=== PATIENT | female | born 1970 | race Caucasian/White ===

== ENCOUNTER 2020-09-08 13:02 | Outpatient (REF) | payer MEDICAID, SELFPAY | END 2020-09-08 13:03 | disposition home or self-care (01) | LOC: HO.LAB 13:02 | PROVIDERS: PCP Internal Medicine; Visit Provider Internal Medicine | DX: Z20.822 Contact with and (suspected) exposure to COVID-19 (principal) | CPT/HCPCS: 36415; C9803; U0003; U0005 ==

== ENCOUNTER 2021-03-21 14:29 | Outpatient (REF) | payer MEDICAID, SELFPAY ==
--- NOTE | ~2021-03-21 | MM_ITS ---
EXAMINATION: MM SCREENING DIGITAL BREAST TOMOSYNTHESIS, BILATERAL CLINICAL INFORMATION: Screening. Asymptomatic. The lifetime risk of breast cancer based on the Tyrer-Cuzick Model is 15%. COMPARISON: Mammography: 03/17/2020, 03/25/2019, 01/16/2018 TECHNIQUE: Digital breast tomosynthesis is performed in both the craniocaudal and mediolateral oblique views along with computer-aided detection (CAD). Synthesized 2D images are generated from the tomosynthesis. FINDINGS: There are scattered areas of fibroglandular density (ACR BI-RADS breast composition Category b). There are no significant masses, abnormal calcifications, or other abnormalities. Parenchymal pattern is similar to prior studies. There is no interval mass or architectural abnormality. No abnormal calcifications. The axilla and skin contours are unremarkable. MM/MM tomosynthesis screening BI IMPRESSION: No mammographic evidence of malignancy. ASSESSMENT: BI-RADS 1: Negative RECOMMENDATION: Routine annual mammography screening. This patient's information was entered into a reminder system with a target due date for their next mammogram.
== END 2021-03-21 14:30 | disposition home or self-care (01) ==
LOC: HO.MAMMO 14:29
PROVIDERS: PCP Internal Medicine; Visit Provider Internal Medicine
DX: Z12.31 Encounter for screening mammogram for malignant neoplasm of breast (principal)
CPT/HCPCS: 77063; 77067

== ENCOUNTER 2021-06-16 17:02 | Emergency (ER) | payer MEDICAID, SELFPAY ==
--- NOTE | ~2021-06-16 | XR_ITS ---
EXAMINATION: XR CHEST CLINICAL INFORMATION: Cough. COMPARISON: None TECHNIQUE: Frontal view of the chest was obtained. FINDINGS: The lungs are clear. The cardiomediastinal silhouette is normal in size. There is no pleural effusion or pneumothorax. No acute osseous abnormality. XR/XR chest 1V IMPRESSION: No acute cardiopulmonary findings.
[2021-06-16 17:41] VITALS: BP 156/73; PULSE 65; RESP 18; TEMP 36.9; O2SAT 98; BMI 30.4
--- NOTE | 2021-06-16 18:21 | ED_ITS ---
HPI - URI/Sore Throat General Chief Complaint: Upper Respiratory Symptoms <LANI Hernandez - Last Filed: 06/16/21 19:55> Stated Complaint: sore throat, cough <LANI Hernandez - Last Filed: 06/16/21 19:55> Time Seen by Provider: 06/16/21 17:54 <LANI eHrnandez - Last Filed: 06/16/21 19:55> Source: patient <LANI Hernandez Last Filed: 06/16/21 19:55> Mode of arrival: ambulatory <LANI Hernandez Last Filed: 06/16/21 19:55> Limitations: no limitations <LANI Hernandez Last Filed: 06/16/21 19:55> History of Present Illness HPI Narrative: 51 year old female past medical history significant for deprpession and diabetes presents to the emergency department with complaints of a cough, fatigue and sore throat X2 days. Patient states that she has been having a productive cough of yellow sputum for the past 2 days, and has been feeling very fatigued. She also reports that her throat has been burning/stinging for the past 2 days. Her daughter told her that she recently tested positive for RSV, which made her very worried. She states she is also very worried because somebody she works closely with just tested positive for COVID-19. Patient is not a smoker, and never has been. She is not vaccinated against COVID-19. She denies chest pain, shortness of breath, fevers, chills, nausea, vomiting, diarrhea, abdominal pain, weakness, headache, ear pain, rhinorrhea <LANI Hernandez Last Filed: 06/16/21 19:55> MD elicited complaint: cough and sore throat <LANI Hernandze Last Filed: 06/16/21 19:55> Onset (ago): day(s) (2) <LNAI Hernandez Last Filed: 06/16/21 19:55> Consistency: intermittent <LANI Hernandez Last Filed: 06/16/21 19:55> Severity: moderate <LANI Hernandez - Last Filed: 06/16/21 19:55> Description of mucous: yellow (sputum) <LANI Hernandez - Last Filed: 06/16/21 19:55> Able to tolerate fluids by mouth: Yes <LANI Hernandez Last Filed: 06/16/21 19:55> Exacerbating factors: nothing <LANI Hernandez - Last Filed: 06/16/21 19:55> Relieving factors: nothing <LANI Hernandez - Last Filed: 06/16/21 19:55> Context: sick contacts (daughter + for RSV, Coworker + COVID) <LANI Hernandez - Last Filed: 06/16/21 19:55> Associated symptoms: denies other symptoms <LANI Hernandez Last Filed: 06/16/21 19:55> Treatments prior to arrival: none <LANI Hernandez Last Filed: 06/16/21 19:55> Related Data Home Medications: Previous Rx's Medication Instructions Recorded benzonatate 100 mg capsule 100 mg PO BID PRN #14 cap 06/16/21 <LANI Hernandez Last Filed: 06/16/21 19:55> Allergies/Adverse Reactions: Allergies Allergy/AdvReac Type Severity Reaction Status Date / Time codeine [CODEINE] Allergy Unknown RASH Verified 06/16/21 17:40 <LANI Hernandez Last Filed: 06/16/21 19:55> Review of Systems Review of Systems: Constitutional : No Weight loss, No Fever, No Chills, No Fatigue, No Malaise ENT/Mouth : + sore throat, No Rhinorrhea Eyes: No Eye Pain, No Swelling, No Redness Cardiovascular : No Chest Pain, No SOB, No Dyspnea on Exertion, No Orthopnea, No Edema, No Palpitations Respiratory : + Cough, No Sputum, No Wheezing Gastrointestinal : No Nausea, No Vomiting, No Diarrhea, No Constipation, No abdominal Pain, No Hematochezia, No Melena Genitourinary : No Dysuria, No Urinary Frequency, No Hematuria, Musculoskeletal : No joint pain, No Myalgias, No Joint Swelling Skin : No Skin Lesions, No rash Neuro : No Weakness, No Numbness, No Dizziness, No Headache All other systems reviewed and are negative <LANI Hernandez - Last Filed: 06/16/21 19:55> [facility] Past Medical History Attestation statement: The following information was validated with the patient. <LANI Hernandez - Last Filed: 06/16/21 19:55> Source: old records reviewed and nursing notes reviewed <LANI Hernandez - Last Filed: 06/16/21 19:55> Medical History: Medical History Depression Diabetes <LANI Hernandez - Last Filed: 06/16/21 19:55> Social History Social History: Social History Advance Directives: No Advance Directives Information Provided: No Patient : No <LANI Hernandez - Last Filed: 06/16/21 19:55> Physical Exam Vital Signs: Vital Signs: Last Vital Signs Temp 98.5 F 06/16/21 17:41 Pulse 65 06/16/21 17:41 Resp 18 06/16/21 17:41 BP 156/73 H 06/16/21 17:41 Pulse Ox 98 06/16/21 17:41 Body Mass Index 30.4 Vital signs are stable at this time, patient is noted to be slightly hypertensive 153/73. <LANI Hernandez - Last Filed: 06/16/21 19:55> Vital Signs: Last Vital Signs Temp 98.5 F 06/16/21 17:41 Pulse 65 06/16/21 17:41 Resp 18 06/16/21 17:41 BP 156/73 H 06/16/21 17:41 Pulse Ox 98 06/16/21 17:41 Body Mass Index 30.4 <LANI Hewitt - Last Filed: 06/17/21 00:23> Appearance: Alert.? Oriented X3.? No acute distress.? Eyes: Pupils equal, round and reactive to light.? ENT: Pharynx normal.?No exudates or erythema Neck: Normal inspection.? Neck supple.? No palpable lymphadenopathy. CVS: Normal heart rate and rhythm.? Pulses normal.? Respiratory: No respiratory distress.? Breath sounds normal.? Abdomen: Soft and nontender.? Skin: Skin warm and dry.? Normal skin color.? Normal skin turgor.? Extremities: No lower extremity edema.? 5/5 strength to upper and lower extremities. Full range of motion. Neuro: Oriented X 3.? No motor deficit.? No sensory deficit. <LANI Hernandez - Last Filed: 06/16/21 19:55> Course Course Course Narrative: Patient seen and examined - agree with assessment and plan. <LANI Hewitt - Last Filed: 06/17/21 00:23> Reevaluation(s) Reevaluation #1: Chest x-ray negative. Strep negative. FLU/COVID/RSV shows + RSV This is likely a viral upper respiratory infection (RSV). Patient's vital signs remained stable she is saturating 98% on room air. Patient is stable for discharge home, with PCP follow-up. She has been advised to return to the emerg ency department with any new or worsening symptoms such as fevers, chills, SOB, CP <LANI Hernandez - Last Filed: 06/16/21 19:55> Time: 19:49 <LANI Hernandez - Last Filed: 06/16/21 19:55> MDM - URI/Sore Throat MDM Narrative Medical decision making narrative: 1832 51-year-old female past medical history significant for depression, diabetes presents to the emergency department with 2 days of sore throat, productive cough of yellow sputum and recent sick contacts (daugter + RSV. coworker + COVID). Patient is not a smoker. Patient is not vaccinated against COVID-19. Patient denies chest pain, shortness of breath, fevers, chills, nausea, vomiting, abdominal pain, weakness. Upon physical examination patient appears comfortable lying on the stretcher in no distress. Lungs are clear to auscultation bilaterally. S1 and S2 are appreciated free of murmurs. Abdomen soft nontender nondistended. Pharynx is within normal limits, no erythema, no tonsillar exudates, no abscesses. Uvula is midline. Patient controlling secretions well. Bilateral tympanic membranes pearly white, good cone of light, all landmarks visible, free of effusions and erythema. No palpable lymphadenopathy. No focal neuro deficits. Vital signs are stable, she is noted to be slightly hypertensive 156/73, however patient has diagnosis of hypertension. Patient does not endorse shortness of breath, patient is not tachycardic, she is not having chest pain. Unlikely that this is a PE or ACS. Plan at this time is to obtain a flu/COVID/RSV, strep, chest x-ray. <LANI Hernandez - Last Filed: 06/16/21 19:55> Lab Data Labs: Lab Results 06/16/21 06/16/21 Range/Units 18:00 18:00 Influenza Type A (PCR) NEGATIVE (Negative) Influenza Type B (PCR) NEGATIVE (Negative) RSV RNA Qual (PCR) POSITIVE A (Negative) SARS-CoV-2 RNA (RT-PCR) NEGATIVE (Negative) S. pyogenes GrpA MANUEL Negative (Negative) <LANI Hernandez Last Filed: 06/16/21 19:55> Lab Results 06/16/21 06/16/21 Range/Units 18:00 18:00 Influenza Type A (PCR) NEGATIVE (Negative) Influenza Type B (PCR) NEGATIVE (Negative) RSV RNA Qual (PCR) POSITIVE A (Negative) SARS-CoV-2 RNA (RT-PCR) NEGATIVE (Negative) S. pyogenes GrpA MANUEL Negative (Negative) <LANI Hewitt - Last Filed: 06/17/21 00:23> Imaging Data Chest x-ray: Attestation: I personally reviewed and interpreted this imaging study as follows: <LANI Hernandez Last Filed: 06/16/21 19:55> Radiologist's impression: FINDINGS: The lungs are clear. The cardiomediastinal silhouette is normal in size. There is no pleural effusion or pneumothorax. No acute osseous abnormality. XR/XR chest 1V IMPRESSION: No acute cardiopulmonary findings. ? <LANI Hernandez Last Filed: 06/16/21 19:55> Discharge Plan Discharge Clinical Impression: Viral infection, Respiratory syncytial virus (RSV) <LANI Hernandez - Last Filed: 06/16/21 19:55> Patient Disposition: Home, Self-Care <LANI Hernandez - Last Filed: 06/16/21 19:55> Instructions: Acute Bronchitis (ED) <LANI Hernandez - Last Filed: 06/16/21 19:55> Additional Instructions: Follow-up with your primary care provider this week. Return to the emergency department with new or worsening symptoms such as shortness of breath, chest pain, fevers or chills This virus is contagious, I recommend isolation for a week. In case of emergency call 911 Sen un seguimiento con jackson proveedor de atenci?n primaria esta semana. Gladys virus se lo puedes pasar a otros, isolacion Regrese al departamento de emergencias con s?ntomas nuevos o que empeoran, luis felipe dificultad para respirar, dolor en el pecho, fiebre o escalofr?os. En barrett de emergencia llame al 911 <LANI Hernandez - Last Filed: 06/16/21 19:55> Prescriptions: New benzonatate 100 mg capsule 100 mg PO BID PRN (Reason: cough) Qty: 14 RF: 0 <LANI Hernandez - Last Filed: 06/16/21 19:55> Referrals: Vito Allen MD [Primary Care Provider] - 2 days <LANI Hernandez - Last Filed: 06/16/21 19:55> Stand Alone Forms: Work/School Release <LANI Hernandez - Last Filed: 06/16/21 19:55> Interventions: ED Discharge Assessment Last Done: 06/16/21 20:39 <LANI Hernandez - Last Filed: 06/16/21 19:55> Discharge Date/Time: 06/16/21 20:41 <LANI Hernandez - Last Filed: 06/16/21 19:55> Print Language: Ecuadorean <LANI Hernandez Last Filed: 06/16/21 19:55>
[2021-06-16 18:36] LABS: Strep A Nucleic Acid Negative (Negative)
[2021-06-16 19:07] LABS: Influenza A PCR NEGATIVE (Negative); Influenza B PCR NEGATIVE (Negative); Resp Syncy Virus RNA Qual PCR POSITIVE (Negative); SARS COV2 PCR INHOUSE NEGATIVE (Negative)
== END 2021-06-16 20:41 | disposition home or self-care (01) ==
PROVIDERS: Emergency Provider Internal Medicine; PCP Internal Medicine
DX: B34.9 Viral infection, unspecified (principal); B97.4 Respiratory syncytial virus as the cause of diseases classified elsewhere; E11.9 Type 2 diabetes mellitus without complications; Z20.822 Contact with and (suspected) exposure to COVID-19
CPT/HCPCS: 0241U; 36415; 71045; 87651; 99283

== ENCOUNTER 2021-11-17 08:05 | Outpatient (REF) | payer MEDICAID, SELFPAY ==
--- NOTE | 2021-11-17 08:08 | EMG_ITS ---
Bilateral median and ulnar motor and sensory studies were performed. Bilateral radial sensory studies were performed and paraspinal muscles were tested. IMPRESSION: Mild bilateral median neuropathy across carpal tunnel. MD SAMANTA Figueredo/WES / [id number]
== END 2021-11-17 08:06 | disposition home or self-care (01) ==
LOC: HO.NEURO 08:05
PROVIDERS: Visit Provider Internal Medicine
DX: G56.03 Carpal tunnel syndrome, bilateral upper limbs (principal)
CPT/HCPCS: 95886; 95911

== ENCOUNTER 2022-01-04 09:01 | Emergency (ER) | payer MEDICAID, SELFPAY ==
--- NOTE | ~2022-01-04 | XR_ITS ---
EXAMINATION: XR CERVICAL SPINE XR THORACIC SPINE CLINICAL INFORMATION: History of arthritis. COMPARISON: None TECHNIQUE: Cervical spine 3 views. Thoracic spine 3 views. FINDINGS: CERVICAL SPINE: There is normal cervical lordosis. The vertebral heights and alignment are normal. There is moderate ventral spondylosis C4-C5, C5-C6 and C6-C7 disc levels. No visible acute fracture, dislocation or subluxation seen. The craniovertebral junction and the C1-C2 alignment are normal. DORSAL SPINE: There is normal thoracic kyphosis. The vertebral heights and alignment are normal. There is moderate right paravertebral and anterior osteophytes along the mid dorsal spine. No visible acute fracture, dislocation or lytic process seen. The paravertebral soft tissues are normal. XR/XR thoracic spine 3V IMPRESSION: Moderate spondylosis dorsal spine without any visible acute fracture or lytic process. No acute fracture or dislocation in cervical spine. There is moderate ventral spondylosis and bridging osteophytes C4-C5, C5-C6 and C6-C7 disc levels.
--- NOTE | ~2022-01-04 | XR_ITS ---
EXAMINATION: XR CERVICAL SPINE XR THORACIC SPINE CLINICAL INFORMATION: History of arthritis. COMPARISON: None TECHNIQUE: Cervical spine 3 views. Thoracic spine 3 views. FINDINGS: CERVICAL SPINE: There is normal cervical lordosis. The vertebral heights and alignment are normal. There is moderate ventral spondylosis C4-C5, C5-C6 and C6-C7 disc levels. No visible acute fracture, dislocation or subluxation seen. The craniovertebral junction and the C1-C2 alignment are normal. DORSAL SPINE: There is normal thoracic kyphosis. The vertebral heights and alignment are normal. There is moderate right paravertebral and anterior osteophytes along the mid dorsal spine. No visible acute fracture, dislocation or lytic process seen. The paravertebral soft tissues are normal. XR/XR cervical spine 3V IMPRESSION: Moderate spondylosis dorsal spine without any visible acute fracture or lytic process. No acute fracture or dislocation in cervical spine. There is moderate ventral spondylosis and bridging osteophytes C4-C5, C5-C6 and C6-C7 disc levels.
[2022-01-04 09:17] VITALS: BP 140/55; PULSE 73; RESP 16; TEMP 36.9; O2SAT 96; BMI 30.7
[2022-01-04 10:23] LABS: MANUAL DIFF FLAG NO
[2022-01-04 10:26] LABS: Basophils Absolute Auto 0.1 X10*3/uL (0.0-0.2); Basophils Percent Auto 1.1 % (0-2); Eosinophils Absolute Auto 0.1 X10*3/uL (0.0-0.4); Eosinophils Percent Auto 2.2 % (0-4); Hematocrit 42.5 % (37.0-47.0); Hemoglobin 13.9 g/dl (12.0-16.0); Imm Gran Abs Auto 0.02 X10*3/uL (0.00-0.03); Imm Gran Pct Auto 0.3 % (0.0-0.4); Lymphocytes Absolute Auto 1.3 X10*3/uL (1.2-4.9); Lymphocytes Percent Auto 20.8 % (20-40); Mean Corpuscular HGB Conc 32.7 g/dl (31.0-35.0); Mean Corpuscular Hemoglobin 28.5 pg (27.0-33.0); Mean Corpuscular Volume 87.1 fL (80.0-98.0); Mean Platelet Volume 10.6 fL (9.4-12.3); Monocytes Absolute Auto 0.4 X10*3/uL (0.1-1.2); Monocytes Percent Auto 6.7 % (2-11); Neutrophils Absolute Auto 4.3 x10*3/uL (2.0-8.3); Neutrophils Percent Auto 68.9 % (45-73); Platelet Count 222 X10*3/uL (160-400); Red Blood Count 4.88 X10*6/uL (4.20-5.50); White Blood Count 6.3 X10*3/uL (4.8-10.8)
[2022-01-04 10:39] LABS: Anion Gap 12 (12-20); Blood Urea Nitrogen 19 mg/dL (9-16); Carbon Dioxide 24 mmol/L (22-29); Chloride 105 mmol/L (96-108); Creatinine Clr Calc Pharmacy 93.5; Estimated Glomerular Filt Rate > 60; Glucose Random 201 mg/dL (60-115); Potassium 4.7 mmol/L (3.3-5.1); Sodium 136 mmol/L (135-145)
--- NOTE | 2022-01-04 11:19 | ED_ITS ---
HPI - General Adult General Chief complaint: General Medical Stated complaint: back and leg pain Time Seen by Provider: 01/04/22 10:42 Source: patient Mode of arrival: ambulatory Limitations: language barrier (Luxembourgish-speaking medical affairs specialist utilized) History of Present Illness HPI narrative: Patient presents to the emergency department for evaluation of acute on chronic pain. She reports that she is experiencing posterior neck and upper back pain in addition to left hip pain that has been worse over the past 2 weeks. In addition she reports weakness and numbness/tingling to the bilateral upper extremities and hands. She reports in the 90 she was advised that she has arthritis of C1-C3. She has been recently diagnosed with bilateral shoulder tendinitis, and bilateral carpal tunnel. She had an EMG reportedly 1 month ago. She was advised to use braces to the bilateral wrists but has not had sig nificant improvement. Over the past 2 weeks there is a 3 day period in which she was taking Tylenol every 4 hours without improvement. Intermittent use of ibuprofen without improvement. Overall her symptoms of pain, numbness, tingling, and weakness are not new they are chronic for over 15 years, they simply feel worse over the past 2 weeks. Denies headache, vision changes, neck stiffness, fevers, chills, upper respiratory symptoms, numbness or tingling of the lower extremities or perineum, bowel or bladder dysfunction, inability to walk. Related Data Previous Rx's Medication Instructions Recorded benzonatate 100 mg capsule 100 mg PO BID PRN #14 cap 06/16/21 meloxicam 7.5 mg tablet 7.5 mg PO DAILY 7 Days #7 tab 01/04/22 Allergies Allergy/AdvReac Type Severity Reaction Status Date / Time codeine [CODEINE] Allergy Unknown RASH Verified 09/21/21 15:13 Codeine Allergy Unknown Uncoded 09/21/21 15:13 Review of Systems Review of Systems: Constitutional: No weight loss. No fever. No chills. No weakness. No fatigue. Eye: No swelling. No redness. ENT: No sore throat. No rhinorrhea. No nasal congestion. No sore throat. No difficulty swallowing. Skin: No rash. No itching. Cardiovascular: No chest pain. No chest pressure. No palpitations. No pedal edema. Respiratory: No shortness of breath. No cough. No sputum production. Gastrointestinal: No anorexia. No nausea. No vomiting. No diarrhea. No abdominal pain. No blood in stool. Genitourinary: No burning micturition. No urinary frequency. No incontinence. Neurologic: Positive numbness, tingling, weakness of the bilateral upper extremities. No headache. No dizziness. No pre-syncope/ syncope. No unilateral weakness. No ataxia. No change in bowel or bladder control. Musculoskeletal: Positive neck pain, positive back pain. Positive left hip pain. No muscle pain. No stiffness. Endocrine:No polyuria. No polydipsia. [facility] Past Medical History Attestation statement: The following information was validated with the patient. Source: old records reviewed Medical History Depression Diabetes Social History Social History Advance Directives: No Advance Directives Information Provided: No Physical Exam ED Vital Signs: Vital Signs - 24 hr 01/04/22 09:17 Temperature 98.4 F Pulse Rate 73 Respiratory Rate 16 Blood Pressure 140/55 H Pulse Oximetry 96 BMI result Body Mass Index 30.7 Vital signs have been reviewed as normal and appeared to be correct. Blood pressure normal.? Heart rate normal.? Respiration rate normal. Temperature normal.? Oxygen saturation normal. Appearance: Alert.?Oriented to person, place and time. No acute distress.?Normal affect. Eyes: Pupils equal, round and reactive to light.? EOMi. No Nystagmus. ENT: Pharynx normal.?? Neck: Normal inspection.? Neck supple.?No stiffness, Full AROM.? CVS: Heart sounds normal. Normal heart rate and rhythm.? Pulses normal.?? Respiratory: No respiratory distress.? Lung sounds clear to auscultation bilaterally?? Abdomen: Soft and non-tender. Normoactive bowel sounds. ? Skin: Skin warm and dry.? Normal skin color.? ? Extremities: No lower extremity edema.? No calf ttp. Full AROM to left hip Neuro: Moves all extremities spontaneously. Sensation intact bilaterally. CN II- XII intact. No focal neuro deficits. Ambulates with normal steady gait. Bilateral upper extremity care transitions manager strength 3/5. No weakness of the bilateral shoulders or upper arms against resistance. Course Course Course Narrative: Patient is a 52-year-old female with a past medical history of diabetes, hypertension, tunnel syndrome, bilateral shoulder tendinitis, cervical spine arthritis. Presenting to the emergency department for 2 weeks of acute on chronic neck pain, thoracic pain, left hip pain, numbness and tingling to the upper extremities, and weakness of the bilateral hands. Numbness tingling and weakness are chronic, not consistent with acute cord compression. X-ray of the thoracic spine reveals moderate spondylosis without any acute fracture lytic process. X-ray of the cervical spine reveals moderate ventral spondylosis with bridging osteophytes no acute fracture dislocation. Discussed findings with patient. Advised patient to trial course of meloxicam. Advised to contact primary care provider to schedule a follow-up visit within 1 week, advised return to the emergency department any new or worsening symptoms or concerns Medical Decision Making Medical Records Medical records reviewed: Yes I reviewed the patient's medical records. Lab Data Result diagrams: 01/04/22 10:19 01/04/22 10:20 Labs: Lab Results 01/04/22 01/04/22 Range/Units 10:19 10:20 WBC 6.3 (4.8-10.8) X10*3/uL RBC 4.88 (4.20-5.50) X10*6/uL Hgb 13.9 (12.0-16.0) g/dl Hct 42.5 (37.0-47.0) % MCV 87.1 (80.0-98.0) fL MCH 28.5 (27.0-33.0) pg MCHC 32.7 (31.0-35.0) g/dl RDW 13.0 (11.0-16.0) % Plt Count 222 (160-400) X10*3/uL MPV 10.6 (9.4-12.3) fL Immature Gran % (Auto) 0.3 (0.0-0.4) % Neut % (Auto) 68.9 (45-73) % Lymph % (Auto) 20.8 (20-40) % [place] % (Auto) 6.7 (2-11) % Eos % (Auto) 2.2 (0-4) % Baso % (Auto) 1.1 (0-2) % Lymph # (Auto) 1.3 (1.2-4.9) X10*3/uL [place] # (Auto) 0.4 (0.1-1.2) X10*3/uL Eos # (Auto) 0.1 (0.0-0.4) X10*3/uL Baso # (Auto) 0.1 (0.0-0.2) X10*3/uL Abs Immat Gran (auto) 0.02 (0.00-0.03) X10*3/uL Absolute Neuts (auto) 4.3 (2.0-8.3) x10*3/uL Absolute Nucleated RBC 0.000 (0.0-0.012) X10*3/uL Nucleated RBC % (auto) 0.0 (0.0-0.2) /100WBC Sodium 136 (135-145) mmol/L Potassium 4.7 (3.3-5.1) mmol/L Chloride 105 (96-108) mmol/L Carbon Dioxide 24 (22-29) mmol/L Anion Gap 12 (12-20) BUN 19 H (9-16) mg/dL Creatinine 0.80 (0.5-1.4) mg/dL Estim Creat Clear Calc 93.5 Estimated GFR > 60 Random Glucose 201 H (60-115) mg/dL Calcium 10.0 (8.4-10.2) mg/dL Imaging Data XR spine: Radiologist's impression: XR/XR thoracic spine 3V IMPRESSION: Moderate spondylosis dorsal spine without any visible acute fracture or lytic process. ? No acute fracture or dislocation in cervical spine. There is moderate ventral spondylosis and bridging osteophytes C4-C5, C5-C6 and C6-C7 disc levels.? Discharge Plan Discharge Clinical Impression: Cervical spondylosis with radiculopathy, Spondylosis of thoracic spine Patient Disposition: Home, Self-Care Instructions: Cervical Radiculopathy (ED), Chronic Neck Pain (DC) Additional Instructions: You have given a new prescription for meloxicam, this is an anti-inflammatory, do not take additional [id number] medications such as ibuprofen/Motrin, Aleve/naproxen, or aspirin while taking this medication. Please contact your primary care provider to schedule a follow-up visit within 1 week regarding your chronic pain. You may return to the emergency department with any new or worsening symptoms or concerns Prescriptions: New meloxicam 7.5 mg tablet 7.5 mg PO DAILY 7 Days Qty: 7 0RF No Action benzonatate 100 mg capsule 100 mg PO BID PRN (Reason: cough) Qty: 14 0RF Interventions: ED Discharge Assessment Last Done: 01/04/22 15:09 Discharge Date/Time: 01/04/22 15:12
== END 2022-01-04 15:12 | disposition home or self-care (01) ==
PROVIDERS: Emergency Provider Emergency Medicine; PCP Internal Medicine
DX: M47.814 Spondylosis without myelopathy or radiculopathy, thoracic region (principal); M47.812 Spondylosis without myelopathy or radiculopathy, cervical region; G56.03 Carpal tunnel syndrome, bilateral upper limbs; M75.92 Shoulder lesion, unspecified, left shoulder; M75.91 Shoulder lesion, unspecified, right shoulder; I10 Essential (primary) hypertension; E11.9 Type 2 diabetes mellitus without complications
CPT/HCPCS: 36415; 72040; 72072; 80048; 85025; 99283

== ENCOUNTER 2022-05-01 11:05 | Emergency (ER) | payer MEDICAID, SELFPAY | END 2022-05-01 14:55 | disposition left against medical advice (07) | PROVIDERS: Emergency Provider Emergency Medicine; PCP Internal Medicine | DX: M25.552 Pain in left hip (principal); E11.9 Type 2 diabetes mellitus without complications ==

== ENCOUNTER 2022-10-12 05:52 | Emergency (ER) | payer OTHER, MEDICAID, SELFPAY ==
[2022-10-12] VITALS (7 sets, daily range): BP systolic 125–173; BP diastolic 57–88; PULSE 60–89; RESP 14–16; TEMP 36.6–36.9; O2SAT 95–98; BMI 27.0
--- NOTE | 2022-10-12 10:33 | ED_ITS ---
HPI - General Adult General Chief complaint: Anxiety Stated complaint: Depression Time Seen by Provider: 10/12/22 06:39 History of Present Illness HPI narrative: Patient is a 52-year-old female with a history depression was undergoing a stressful situation with her boss. Subsequently felt very depressed very anxious had thoughts about suicidal ideation but no specific plan. Came to the ED for help. Related Data Previous Rx's Medication Instructions Recorded benzonatate 100 mg capsule 100 mg PO BID PRN cough #14 caps 06/16/21 meloxicam 7.5 mg tablet 7.5 mg PO DAILY 1 week #7 tabs 01/04/22 Allergies Allergy/AdvReac Type Severity Reaction Status Date / Time codeine [CODEINE] Allergy Unknown RASH Verified 09/21/21 15:13 Codeine Allergy Unknown Uncoded 09/21/21 15:13 Review of Systems Review of Systems: No chest pain or shortness of breath no nausea no vomiting no recreational drugs Yes all other systems are reviewed and are negative [facility] Past Medical History Attestation statement: The following information was validated with the patient. Medical History Depression Diabetes Social History Social History Advance Directives: No Healthcare Proxy: No Guardian: No Physical Exam ED Vital Signs: Vital Signs - 24 hr 10/12/22 05:59 10/12/22 07:11 10/12/22 10:05 Temperature 97.9 F 98.3 F 98 F Pulse Rate 89 66 62 Respiratory Rate 16 14 Blood Pressure 173/88 H 154/77 H 147/71 H Pulse Oximetry 97 95 98 Oxygen Delivery Method Room Air Room Air Room Air 10/12/22 14:50 Temperature 97.9 F Pulse Rate 60 Respiratory Rate 14 Blood Pressure 134/70 Pulse Oximetry 97 Oxygen Delivery Method Room Air BMI result Body Mass Index 27.0 Appearance: Alert. Oriented X3. No acute distress. Eyes: Pupils equal, round and reactive to light. ENT: Pharynx normal. Neck: Normal inspection. Neck supple. No lymph nodes noted. No crepitus CVS: Normal heart rate and rhythm. Pulses normal. Normal S1 and S2 Respiratory: No respiratory distress. Breath sounds normal. No Wheezing. No rales Abdomen: Soft and nontender. No rigidity. No distention. good BS x4 Skin: Skin warm and dry. Normal skin color. Normal skin turgor. Extremities: No lower extremity edema. Neurovascular intact to all extremities. No Lacerations. No Rash Neuro: Oriented X 3. No motor deficit. No sensory deficit. Moving all extermit ies. No slurred speech Medical Decision Making Medical Decision Making MDM Narrative: Patient positive depression no suicidal homicidal ideation after a stressful event. No specific plans. Feels very depressed. Crying. Crisis evaluation ordered. Patient medically cleared is currently a bed search. 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 10/12/22 11:22 10/12/22 11:22 Labs: Lab Results 10/12/22 10/12/22 10/12/22 Range/Units 11:22 11:22 11:34 WBC 5.9 (4.8-10.8) X10*3/uL RBC 4.57 (4.20-5.50) X10*6/uL Hgb 13.0 (12.0-16.0) g/dl Hct 39.4 (37.0-47.0) % MCV 86.2 (80.0-98.0) fL MCH 28.4 (27.0-33.0) pg MCHC 33.0 (31.0-35.0) g/dl RDW 12.8 (11.0-16.0) % Plt Count 251 (160-400) X10*3/uL MPV 10.0 (9.4-12.3) fL Immature Gran % (Auto) 0.2 (0.0-0.4) % Neut % (Auto) 65.7 (45-73) % Lymph % (Auto) 23.8 (20-40) % [place] % (Auto) 7.6 (2-11) % Eos % (Auto) 1.7 (0-4) % Baso % (Auto) 1.0 (0-2) % Lymph # (Auto) 1.4 (1.2-4.9) X10*3/uL [place] # (Auto) 0.5 (0.1-1.2) X10*3/uL Eos # (Auto) 0.1 (0.0-0.4) X10*3/uL Baso # (Auto) 0.1 (0.0-0.2) X10*3/uL Abs Immat Gran (auto) 0.01 (0.00-0.03) X10*3/uL Absolute Neuts (auto) 3.9 (2.0-8.3) x10*3/uL Absolute Nucleated RBC 0.000 (0.0-0.012) X10*3/uL Nucleated RBC % (auto) 0.0 (0.0-0.2) /100WBC Sodium 138 (135-145) mmol/L Potassium 4.1 (3.3-5.1) mmol/L Chloride 107 (96-108) mmol/L Carbon Dioxide 23 (22-29) mmol/L Anion Gap 12 (12-20) BUN 11 (9-16) mg/dL Creatinine 0.64 (0.5-1.4) mg/dL Estim Creat Clear Calc 112.0 Estimated GFR > 60 POC Glucose 95 (60-115) mg/dL Random Glucose 95 (60-115) mg/dL Calcium 9.2 D (8.4-10.2) mg/dL Total Bilirubin 0.5 (0.0-1.0) mg/dL Direct Bilirubin 0.2 (0.0-0.5) mg/dL AST 15 (5-31) U/L ALT 14 (0-31) U/L Alkaline Phosphatase 128 H (39-117) U/L Total Protein 7.5 (6.5-8.0) g/dL Albumin 3.8 (3.5-5.0) g/dL Urine Opiates Screen (Not Detect) Urine Fentanyl Screen (Not Detect) Ur Barbiturates Screen (Not Detect) Ur Phencyclidine Scrn (Not Detect) Ur Amphetamines Screen (Not Detect) U Benzodiazepines Scrn (Not Detect) Urine Cocaine Screen (Not Detect) U Marijuana (THC) Screen (Not Detect) Ethyl Alcohol < 10 mg/dL 10/12/22 Range/Units 13:01 WBC (4.8-10.8) X10*3/uL RBC (4.20-5.50) X10*6/uL Hgb (12.0-16.0) g/dl Hct (37.0-47.0) % MCV (80.0-98.0) fL MCH (27.0-33.0) pg MCHC (31.0-35.0) g/dl RDW (11.0-16.0) % Plt Count (160-400) X10*3/uL MPV (9.4-12.3) fL Immature Gran % (Auto) (0.0-0.4) % Neut % (Auto) (45-73) % Lymph % (Auto) (20-40) % [place] % (Auto) (2-11) % Eos % (Auto) (0-4) % Baso % (Auto) (0-2) % Lymph # (Auto) (1.2-4.9) X10*3/uL [place] # (Auto) (0.1-1.2) X10*3/uL Eos # (Auto) (0.0-0.4) X10*3/uL Baso # (Auto) (0.0-0.2) X10*3/uL Abs Immat Gran (auto) (0.00-0.03) X10*3/uL Absolute Neuts (auto) (2.0-8.3) x10*3/uL Absolute Nucleated RBC (0.0-0.012) X10*3/uL Nucleated RBC % (auto) (0.0-0.2) /100WBC Sodium (135-145) mmol/L Potassium (3.3-5.1) mmol/L Chloride (96-108) mmol/L Carbon Dioxide (22-29) mmol/L Anion Gap (12-20) BUN (9-16) mg/dL Creatinine (0.5-1.4) mg/dL Estim Creat Clear Calc Estimated GFR POC Glucose (60-115) mg/dL Random Glucose (60-115) mg/dL Calcium (8.4-10.2) mg/dL Total Bilirubin (0.0-1.0) mg/dL Direct Bilirubin (0.0-0.5) mg/dL AST (5-31) U/L ALT (0-31) U/L Alkaline Phosphatase (39-117) U/L Total Protein (6.5-8.0) g/dL Albumin (3.5-5.0) g/dL Urine Opiates Screen Not Detected (Not Detect) Urine Fentanyl Screen Not Detected (Not Detect) Ur Barbiturates Screen Not Detected (Not Detect) Ur Phencyclidine Scrn Not Detected (Not Detect) Ur Amphetamines Screen Not Detected (Not Detect) U Benzodiazepines Scrn Not Detected (Not Detect) Urine Cocaine Screen Not Detected (Not Detect) U Marijuana (THC) Screen Not Detected (Not Detect) Ethyl Alcohol mg/dL Independent Historian Clinical information obtained from an independent historian. History obtained from or confirmed by: Spouse External Record Review External record reviewed: Inpatient record Chronic Conditions Depression Social Determinants Patient?s care significantly limited by Social Determinants of Health including: Low income and Problems related to primary support group Discharge Plan Discharge Clinical Impression: Depression Patient Disposition: Still a Patient Prescriptions: No Action benzonatate 100 mg capsule 100 mg PO BID PRN (Reason: cough) Qty: 14 0RF meloxicam 7.5 mg tablet 7.5 mg PO DAILY 7 Days Qty: 7 0RF
--- NOTE | 2022-10-12 11:26 | PC.NURSE ---
Pt requests POC glucose checked
[2022-10-12 11:30] LABS: MANUAL DIFF FLAG NO
[2022-10-12 11:35] LABS: Basophils Absolute Auto 0.1 X10*3/uL (0.0-0.2); Eosinophils Absolute Auto 0.1 X10*3/uL (0.0-0.4); Eosinophils Percent Auto 1.7 % (0-4); Hematocrit 39.4 % (37.0-47.0); Imm Gran Abs Auto 0.01 X10*3/uL (0.00-0.03); Imm Gran Pct Auto 0.2 % (0.0-0.4); Lymphocytes Absolute Auto 1.4 X10*3/uL (1.2-4.9); Lymphocytes Percent Auto 23.8 % (20-40); Mean Corpuscular Hemoglobin 28.4 pg (27.0-33.0); Mean Corpuscular Volume 86.2 fL (80.0-98.0); Monocytes Absolute Auto 0.5 X10*3/uL (0.1-1.2); Monocytes Percent Auto 7.6 % (2-11); Neutrophils Absolute Auto 3.9 x10*3/uL (2.0-8.3); Neutrophils Percent Auto 65.7 % (45-73); Platelet Count 251 X10*3/uL (160-400); Red Blood Count 4.57 X10*6/uL (4.20-5.50); Red Cell Distribution Width 12.8 % (11.0-16.0); White Blood Count 5.9 X10*3/uL (4.8-10.8)
[2022-10-12 11:38] LABS: Glucose, Whole Blood 95 mg/dL (60-115)
[2022-10-12 11:49] LABS: Alanine Aminotransferase 14 U/L (0-31); Albumin Level 3.8 g/dL (3.5-5.0); Alkaline Phosphatase 128 U/L (39-117); Anion Gap 12 (12-20); Aspartate Amino Transferase 15 U/L (5-31); Bilirubin Direct 0.2 mg/dL (0.0-0.5); Bilirubin Total 0.5 mg/dL (0.0-1.0); Blood Urea Nitrogen 11 mg/dL (9-16); Calcium 9.2 mg/dL (8.4-10.2); Carbon Dioxide 23 mmol/L (22-29); Chloride 107 mmol/L (96-108); Estimated Glomerular Filt Rate > 60; Ethanol < 10 mg/dL; Glucose Random 95 mg/dL (60-115); Potassium 4.1 mmol/L (3.3-5.1); Sodium 138 mmol/L (135-145); Total Protein 7.5 g/dL (6.5-8.0)
[2022-10-12 14:57] LABS: Amphetamine Screen Urine Not Detected (Not Detect); Barbiturates, Urine Not Detected (Not Detect); Benzodiazepines Screen Urine Not Detected (Not Detect); Cannabinoid Screen Urine Not Detected (Not Detect); Cocaine Screen Urine Not Detected (Not Detect); Fentanyl, urine Not Detected (Not Detect); Opiate Screen Urine Not Detected (Not Detect); Phencyclidine Screen Urine Not Detected (Not Detect)
--- NOTE | 2022-10-12 15:00 | MHC.CARE ---
Patient is a voluntary inpatient psych bed search. Seen by CARE team w rug cleaner helper services.
--- NOTE | 2022-10-12 20:19 | MHC.EDTECH ---
pt was change attendant into hospital attire ,pt too belonings home ,the only belonings that are here with patient is her glasses .
--- NOTE | 2022-10-12 20:21 | PC.NURSE ---
Pt A&Ox3, denies any pain. at bedside. Pt calm and cooperative, changed over to hospital attire, kept belongings. Pt denies SI/HI. Pt had dinner that brought in.
--- NOTE | 2022-10-12 20:52 | PHA.MEDREC ---
Pharmacy Consult ? Medication Reconciliation Pharmacy has completed the medication reconciliation. 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 patient states she takes half of her metformin dose since being on trulicity
--- NOTE | 2022-10-12 22:15 | PC.NURSE ---
Pt ambulated to BR with steady gait, by side.
--- NOTE | 2022-10-12 22:37 | MHC.EDTECH ---
2200 rounding done vitals sign taken ,pt at bedside ,pt is tearful ,rn aware .
--- NOTE | 2022-10-13 00:04 | MHC.EDTECH ---
0000 rounding done ,pt sleeping ,pt is at bedside .
[2022-10-13 00:35] VITALS: BP 114/45; PULSE 73; RESP 16; TEMP 36.6; O2SAT 98
[2022-10-13 06:09] VITALS: BP 118/64; PULSE 58; RESP 16; TEMP 36.9; O2SAT 98
[2022-10-13 07:36] VITALS: BP 118/64; PULSE 68; RESP 18; TEMP 37; O2SAT 96
[2022-10-13] MEDS: Sertraline HCL 100 MG TABLET PO (07:36)
[2022-10-13] MEDS: Atorvastatin Calcium 10 MG TABLET PO (07:37)
[2022-10-13] MEDS: Losartan Potassium 50 MG TABLET PO (07:37)
[2022-10-13] MEDS: metFORMIN HCl ER 500 MG TAB.ER.24H PO (07:37)
--- NOTE | 2022-10-13 08:59 | ECG_ITS ---
Test Reason : anxiety Blood Pressure : / mmHG Vent. Rate : 063 BPM Atrial Rate : 063 BPM P-R Int : 182 ms QRS Dur : 080 ms QT Int : 392 ms P-R-T Axes : 028 -03 030 degrees QTc Int : 401 ms Normal sinus rhythm Minimal voltage criteria for LVH, may be normal variant ( R in aVL ) Cannot rule out Anterior infarct , age undetermined Abnormal ECG No previous ECGs available Referred By: Kacy Buchanan Electronically Signed By:FRANCISCO PRATT
== END 2022-10-13 13:41 | disposition home or self-care (01) ==
PROVIDERS: Emergency Provider Emergency Medicine Emergency Medical Services
DX: F33.1 Major depressive disorder, recurrent, moderate (principal); R45.851 Suicidal ideations; F41.1 Generalized anxiety disorder; F43.0 Acute stress reaction; R42 Dizziness and giddiness; Z79.899 Other long term (current) drug therapy
CPT/HCPCS: 36415; 80048; 80076; 80307; 82077; 82947; 85025; 93005; 99285; S9485

== ENCOUNTER 2023-01-24 12:21 | Outpatient (REF) | payer MEDICAID, SELFPAY ==
--- NOTE | ~2023-01-24 | MM_ITS ---
EXAMINATION: MM SCREENING DIGITAL BREAST TOMOSYNTHESIS, BILATERAL CLINICAL INFORMATION: Screening. Asymptomatic. The lifetime risk of breast cancer based on the Tyrer-Cuzick Model is 11%. COMPARISON: Mammography: 03/21/2021, 03/17/2020, 03/07/2019, 01/02/2018 TECHNIQUE: Digital breast tomosynthesis is performed in both the craniocaudal and mediolateral oblique views along with computer-aided detection (CAD). Synthesized 2D images are generated from the tomosynthesis. Additional exaggerated right CC view is provided. FINDINGS: There are scattered areas of fibroglandular density (ACR BI-RADS breast composition Category b). Left breast parenchymal pattern is similar to prior studies and there is no developing density or interval mass or architectural abnormality. Again, there is stable nodularity posterior upper outer left breast similar to prior exams likely intramammary nodes. Neither breast shows abnormal calcifications. The axilla and skin contours are unremarkable. There is parenchymal asymmetry mid central upper outer breast questionably more conspicuous from prior exams. This may be related to summation artifact or superimposed fibrocystic change. Patient will be recalled for additional imaging. MM/MM tomosynthesis screening BI IMPRESSION: Right: Parenchymal asymmetry central upper outer breast questionably more conspicuous from prior exams, possibly summation artifact or superimposed fibrocystic change. Left: -No mammographic evidence of malignancy. ASSESSMENT: BI-RADS 0: Incomplete - Need Additional Imaging Evaluation RECOMMENDATION: 1. Additional views right breast (spot CC, spot MLO). 2. Targeted ultrasound if warranted after review of the additional views. 3. Radiology department staff will contact the patient for additional imaging. This patient's information was entered into a reminder system with a target due date for their next mammogram.
== END 2023-01-24 12:22 | disposition home or self-care (01) ==
LOC: HO.MAMMO 12:21
PROVIDERS: PCP Internal Medicine; Visit Provider Internal Medicine
DX: Z12.31 Encounter for screening mammogram for malignant neoplasm of breast (principal)
CPT/HCPCS: 77063; 77067

== ENCOUNTER 2023-01-30 10:02 | Outpatient (REF) | payer MEDICAID, SELFPAY ==
--- NOTE | ~2023-01-30 | MM_ITS ---
EXAMINATION: MM DIAGNOSTIC DIGITAL BREAST TOMOSYNTHESIS, RIGHT CLINICAL INFORMATION: Recall from screening for parenchymal asymmetry mid upper outer right breast, suspect summation artifact. COMPARISON: Prior mammography exams including most recent 01/24/2023. TECHNIQUE: Digital breast tomosynthesis is performed. 2D images are generated from the tomosynthesis. The following views are obtained: Spot CC, spot MLO. FINDINGS: There are scattered areas of fibroglandular density (ACR BI-RADS breast composition Category b). The additional views show no persistent asymmetric density, mass, architectural abnormality. No significant changes. Results are discussed with the patient at time of visit, using an scrap burner. MM/MM tomosynthesis added views R IMPRESSION: Additional views show no significant changes from prior studies. ASSESSMENT: BI-RADS 1: Negative RECOMMENDATION: Routine annual mammography screening. This patient's information was entered into a reminder system with a target due date for their next mammogram.
== END 2023-01-30 10:03 | disposition home or self-care (01) ==
LOC: HO.MAMMO 10:02
PROVIDERS: Visit Provider Internal Medicine
DX: R92.2 Inconclusive mammogram (principal)
CPT/HCPCS: 77061; 77065

== ENCOUNTER 2023-02-11 08:28 | Emergency (ER) | payer MEDICAID, SELFPAY ==
[2023-02-11 08:33] VITALS: BP 143/63; PULSE 63; RESP 18; TEMP 36.3; O2SAT 98; BMI 30.1
[2023-02-11 09:01] VITALS: BP 136/67; PULSE 59; RESP 17; O2SAT 98
--- NOTE | 2023-02-11 09:47 | ED_ITS ---
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 Patient denies any recent trauma or injury. States that her pain has been ongoing for many years but progressively getting worse. Patient reports that she works at [employer] and often times have to lift heavy objects. Denies any fevers, chills, chest pain, shortness breath, abdominal pain, nausea, vomiting, or diarrhea. Patient reports that her left hip pain is constant worsens with movement and with palpation, states that the pain radiates all the way down into the bottom of her foot. Denies any low back pain or groin pain. No urinary or bowel incontinence. No saddle anethesia. She is talk to her primary care physician regarding her current pain however reports that they are more focus on her diabetes management. Denies any other complaints or concerns at this time. MD Complaint: extremity pain Onset (ago): year(s) Pain Consistency: constant Location: right, upper extremity and lower extremity Quality: aching Related Data Home Medications Medication Instructions Recorded Confirmed atorvastatin 10 mg tablet 1 tab DAILY 10/12/22 10/12/22 dulaglutide 3 mg/0.5 mL 3 mg subcut SA@0900 10/12/22 10/12/22 subcutaneous pen injector (Trulicity) losartan 50 mg tablet 1 tab DAILY 10/12/22 10/12/22 meloxicam 15 mg tablet 1 tab PO DAILY PRN Pain (Scale 10/12/22 10/12/22 Score 1-3) metformin 500 mg tablet,extended 1 tab PO BIDWM 10/12/22 10/12/22 release 24 hr sertraline 100 mg tablet 1 tab PO DAILY 10/12/22 10/12/22 Previous Rx's Medication Instructions Recorded ibuprofen 600 mg tablet 600 mg PO Q6H PRN pain #60 tabs 02/11/23 lidocaine 5 % topical patch 1 patch topical DAILY #30 ea 02/11/23 (Lidoderm) Allergies Allergy/AdvReac Type Severity Reaction Status Date / Time codeine [CODEINE] Allergy Unknown RASH Verified 10/12/22 22:43 Codeine Allergy Unknown Rash Uncoded 10/12/22 22:43 Review of Systems Review of Systems: Constitutional: No Weight loss, No Fever, No Chills ENT/Mouth: No Ear Pain, No Nasal Congestion, No Sinus Pain, No Hoarseness, No sore throat, No Rhinorrhea, No Swallowing Difficulty Cardiovascular: No Chest Pain, No SOB Respiratory: No Cough, No Sputum, No Wheezing Gastrointestinal: No Nausea, No Vomiting, No Diarrhea, No Constipation, No Abdominal pain Genitourinary: No Dysuria, No Urinary Frequency, No Hematuria, No Urinary Incontinence/retention, No Urgency, No Flank Pain Musculoskeletal: + joint pain, No Myalgias, No Joint Swelling Skin: No Skin Lesions, No rash Neuro: No Weakness, No Numbness, No Paresthesias Yes all other systems are reviewed and are negative Constitutional: Constitutional: Reports as per [facility] Past Medical History Medical History Depression Diabetes Social History Social History Alcohol intake: never Physical Exam Vital Signs: Vital Signs: Last Vital Signs Temp 97.3 F 02/11/23 08:33 Pulse 59 02/11/23 09:01 Resp 17 02/11/23 09:01 BP 136/67 02/11/23 09:01 Pulse Ox 98 02/11/23 09:01 O2 Del Method Room Air 02/11/23 09:01 BMI result Body Mass Index 30.1 Const: General: cooperative, comfortable and no acute distress Orientation/consciousness: patient oriented x3 Limitations: no limitations HEENT: Head: Yes normal to inspection, Yes normocephalic and Yes atraumatic Ears: hearing grossly normal bilaterally General nose exam: Normal external nose present Face and sinus: Yes normal facial exam Mouth: Normal oral and palatal mucosa present, oropharynx normal and moist mucous membranes Throat: Yes posterior oropharynx normal Eyes: General: appearance normal, both eyes and all related structures Eyelids: Yes eyelids normal Conjunctivae: conjunctivae normal Sclerae: sclerae normal Pupils: Equal, round and reactive pupils present EOM: EOMs intact bilaterally Neck: Other: No midline spine tenderness, right cervical paraspinous muscle tenderness with spasm, and trapezius muscle tenderness. Neck: Yes normal visual inspection, Yes full ROM and Yes no lymphadenopathy Lymphatic: no lymphadenopathy noted Chest: Chest palpation & inspection: normal inspection of the chest Resp: Effort & Inspection: normal respiratory effort and able to speak in complete sentences Auscultation: clear to auscultation bilaterally, no crackles, no rales, no rhonchi and no wheezes Cardio: Rate: regular rate Rhythm: regular rhythm Heart sounds: S1 norm al heart sound present and S2 normal heart sound present GI: Inspection: Yes normal to inspection : General: Yes no CVA tenderness Back/Spine/Pelvis: Back: no CVA tenderness Cervical Spine: normal cervical lordosis Thoracic/Lumbar Spine: thoracic and lumbar spine normal to inspection Skin: General skin exam: no rashes or lesions noted Trauma: no lacerations or abrasions Wounds: no wounds Neuro: General: patient oriented x3 and moves all extremities Cranial nerves: Yes Equal, round and reactive pupils present Extrem: Other: Left hip with mild tenderness to palpation along the lateral aspect, no overlying skin changes, crepitus, bony deformity or step-off. Patient is ambulatory, distal sensation circulation intact. Able to frontal flex right shoulder to about 90? and abduct chin to about 90?. Right shoulder is diffusely tender throughout. No obvious bony deformity or swelling, no step-off or crepitus. General: Yes normal to inspection Right upper extremity: normal to inspection Left upper extremity: normal to inspection Right lower extremity: normal to inspection Left lower extremity: normal to inspection Course Reevaluation(s) Reevaluation #1: Shoulder x-ray revealing degenerative changes, no fracture seen. No fractures seen in the left hip. Symptoms likely due to degenerative changes, will treat with anti-inflammatories. Will give referral to Orthopedics for further management. Time: 11:42 Medical Decision Making Medical Decision Making MDM Narrative: 53-year-old Amharic-speaking female presenting to the emergency department for evaluation of chronic right shoulder and left hip pain. Pain has been ongoing for many years but has been worsening over the last several months. Patient has been told that she has arthritis but has never had further workup or treatment for this. Vital signs stable, patient has no low back pain, no urinary symptoms, saddle anesthesia or urinary or bowel incontinence. No fevers or chills. Plan x-ray right shoulder, x-ray of left hip Differential Diagnosis Differential Diagnoses: The differential diagnosis associated with the presen tation includes Osteoarthritis, dislocation chin, malignancy Admission/Observation Consideration of admission/observation: Escalation of care including admission/observation considered Patient would have been admitted to the hospital had her work up had any findings where hospital admission was appropriate and her clinical presentation warranted hospital admission. Radiology Impression Discussion of test interpretation with radiology: I have reviewed the radiologist's reading. Radiologist Impression: Exams: Pelvis with left hip 3 views right shoulder 3 views HISTORY: Pain. FINDINGS: Right shoulder imaging demonstrates moderate degeneration AC joint. There is no evidence for any fracture or dislocation. Metallic button projects over the greatest tuberosity. No definite soft tissue calcifications. No deformity. No radiopaque loose body. Imaging of the pelvis and left hip demonstrates IUD in satisfactory position. Minor spurring. No fracture deformity. Femoral head intact. No soft tissue calcifications. XR/XR shoulder RT min 2V IMPRESSION: 1.? Degenerative changes as above. No fracture or dislocation right shoulder. 2.? No fracture left hip. ? Dictated By: Clarence Clay MD External Record Review External record reviewed: Inpatient record, Office record, Outpatient record, Prior outpatient labs, Prior outpatient radiology, Primary care record and Outside ED record Discharge Plan Discharge Clinical Impression: Chronic shoulder pain, Chronic hip pain Patient Disposition: Home, Self-Care Instructions: Shoulder Pain (ED), Hip Pain (ED) Additional Instructions: Your x-ray of your right shoulder showed degenerative changes. There is no broken bones or dislocations in your shoulder seen on x-ray today. Your left hip x-ray did not show any fractures. Please take prescribed medication as directed. Please follow-up with Orthopedics, call tomorrow to make an appointment. If any new or worsening symptoms occur, including but not limited to chest pain, shortness of breath, worsening pain, or any other symptoms, please return for re-evaluation. Jackson radiograf?a de jackson hombro derecho mostr? cambios degenerativos. Hoy no se marti huesos rotos ni dislocaciones en el hombro en la radiograf?a. La radiograf?a de jackson cadera izquierda no mostr? ninguna fractura. [place] los medicamentos recetados seg?n las indicaciones. Por favor, seguimiento con ortopedia, llame ma?shivani para hacer taylor brennan. Si se presentan s?ntomas nuevos o que empeoran, incluidos, entre otros, dolor en el pecho, dificultad para respirar, empeoramiento del dolor o cualquier otro s?ntoma, regrese para taylor nueva evaluaci?n. Prescriptions: New ibuprofen 600 mg tablet 600 mg PO Q6H PRN (Reason: pain) Qty: 60 0RF lidocaine [Lidoderm] 5 % adhesive patch,medicated 1 patch topical DAILY Qty: 30 0RF Rx Instructions: leave on most painful area for up to 12 hrs No Action losartan 50 mg tablet 1 tab DAILY atorvastatin 10 mg tablet 1 tab DAILY meloxicam 15 mg tablet 1 tab PO DAILY PRN (Reason: Pain (Scale Score 1-3)) sertraline 100 mg tablet 1 tab PO DAILY metformin 500 mg tablet extended release 24 hr 1 tab PO BIDWM Trulicity 3 mg/0.5 mL pen injector 3 mg subcut SA@0900 Referrals: [facility] [place] Orthopedic Surgeons [Provider Group] Stand Alone Forms: Work/School Release Interventions: ED Discharge Assessment Last Done: 02/11/23 11:56 Discharge Date/Time: 02/11/23 11:56 Print Language: Amharic
== END 2023-02-11 11:56 | disposition home or self-care (01) ==
PROVIDERS: Emergency Provider Emergency Medicine; PCP Internal Medicine
DX: S49.91XA Unspecified injury of right shoulder and upper arm, initial encounter (principal); M25.511 Pain in right shoulder; M25.552 Pain in left hip; I10 Essential (primary) hypertension; X58.XXXA Exposure to other specified factors, initial encounter; Y93.9 Activity, unspecified; Y92.9 Unspecified place or not applicable; Y99.0 Civilian activity done for income or pay; Z79.899 Other long term (current) drug therapy
CPT/HCPCS: 73030; 73502; 99283

== ENCOUNTER 2023-02-26 13:35 | Outpatient (AMB) | payer MEDICAID, SELFPAY ==
--- NOTE | 2023-02-26 13:42 | MHC.OFFVIS ---
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 States pain started about 5 yrs ago and was told she has tendonitis. Pain has been constant as of 2 yrs ago. She received treatment in [place] like injections and therapy which helped relief some pain. Patient states she also has neck issue and hx of O.A. At times she get burning sensation ,numbness, tingling and weakness in hands. Patient reports her pain is in both shoulder but her left is worse. 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 She states she has pain in her bilateral shoulder which is worse in the right shoulder and has been constant for the past 2 years. Her pain is aggravated with reaching back. She also c/o a burning sensation, weakness, numbness and tingling in her hands. She was seen at [place] where she was given injection and physical therapy which provided her mild relief. She has a history of neck pain, OA and diabetes. She was also diagnosed with tendinitis about 5 years ago. 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 / [employer] Review of Systems Const All systems reviewed & are unremarkable except as noted in HPI and below Physical Exam Vital Signs: BMI result Body Mass Index 30.8 Const General: cooperative, healthy appearing, comfortable, no acute distress, well developed and alert Orientation/consciousness: patient oriented x3 HEENT Head: Yes normal to inspection, Yes normocephalic and Yes atraumatic Eyes General: appearance normal, both eyes and all related structures Resp Effort & Inspection: normal respiratory effort and able to speak in complete sentences Cardio Rate: regular rate Peripheral pulses: Peripheral pulses 2+ throughout GI Palpation (GI): Soft to palpation Skin Lesions: no lesions Rashes: no rashes Neuro General: patient oriented x3 Extrem Other: Left shoulder normal to inspection. Tenderness over the bicipital groove and along the deltoid region of the shoulder. Forward flexion to 175, external rotation to 90, internal rotation to S1. 5/5 RTC strength. Negative Llanos and cross body abduction. NVI. Office Procedures Joint Injection/Drain Joint Injection/Drain Primary Site: left shoulder Prep: site was prepped using aseptic technique, ethochloride spray was applied and injection warnings given Injected: 40 mg of, DepoMedrol, with 8 mL of, 1% plain lidocaine and in the subcromial space Approach Used: posterolateral Procedure: The patient tolerated the procedure well and there was some relief with the local anesthesia Coding 74773 - Glenohumeral/Tronchanteric Bursa/Intraarticular Procedure code (CPT) selection complete Results Reviewed Results Reviewed: 02/26/23 14:14 Lidocaine HCl 2 % MPF [Xylocaine 2 % MPF] 5 ml .ROUTE .STK-MED ONE methylPREDNISolone acetate [DEPO-MedroL] 40 mg .ROUTE .STK-MED ONE xrays of the left shoulder from 2019 show josé luis ac oa Assessment & Plan Assessment & Plan (1) Tendonitis of left rotator cuff: Code(s): M75.82 - Other shoulder lesions, left shoulder Plan We discussed options today which include steroid injection. They did consent to move forward with the left shoulder injection, which was tolerated well. I recommended rest, ice and elevation and OTC anti-inflammatories PRN for discomfort. We also discussed their diabetes and the effect the steroid can have on their blood glucose levels; therefore, they will continue to monitor these very closely over the next 72 hours. If there are any concerns, they should report to the ED immediately. Orders: Orders PT Evaluation and Treatment Today M75.82 - Other shoulder lesions, left shoulder Patient Instructions: Scribed for Nile Hutchison PA-C, by Sunny Mckeon biomedical engineering technologist, on 02/26/2023 at 1:45 PM EST. Nile Goode PA-C, have personally reviewed and agree with the information entered by the scribe. Coding Level of Care Code New Pt Level 3 (65255) Diagnoses Tendonitis of left rotator cuff M75.82 CPT Codes Coding - Joint 7: 07507 - Glenohumeral/Tronchanteric Bursa/Intraarticular ([id number])
[2023-02-26 13:43] VITALS: BMI 30.8
== END 2023-02-26 14:27 | disposition home or self-care (01) ==
PROVIDERS: PCP Internal Medicine; Visit Provider Physician Assistant
DX: M75.82 Other shoulder lesions, left shoulder (principal)
CPT/HCPCS: 20610; 99203

== ENCOUNTER → 2023-02-26 13:35 | Outpatient (BNVA) | payer MEDICAID, SELFPAY | PROVIDERS: PCP Internal Medicine; Visit Provider Physician Assistant | DX: M75.82 Other shoulder lesions, left shoulder (principal) | CPT/HCPCS: 20610; 99203; J1020 ==

== ENCOUNTER → 2023-03-08 09:47 | Outpatient (BNVA) | payer MEDICAID, SELFPAY | PROVIDERS: PCP Internal Medicine; Visit Provider Physical Medicine & Rehabilitation ==

== ENCOUNTER 2023-03-15 09:48 | Outpatient (AMB) | payer MEDICAID, SELFPAY ==
[2023-03-15 09:50] VITALS: BMI 30.8
--- NOTE | 2023-03-15 09:50 | MHC.OFFVIS ---
Intake Vital Signs 03/15/23 09:50 Height 5 ft 6 in Weight 191 lb BMI 30.8 Intake Visit Reasons: new prob- Mild bilateral median Intake Note: Keyonna 53 yr old right hand dominant female presents today for a new problem visit for bilateral hands numbness and tingling for the last year. States her left is worse especially at night time. States she has intermittent numbness through out the day. States she has tried wrist brace with some relief but she no longer has her brace due to over use and worn out. EMG done. Patient would like to discuss injection vs surgical intervention. Patient last seen with Madonna Hutchison who advise patient to be seen with dr. Siddiqi. Hand Cloth Examiner Required: Yes Hand Cloth Examiner Language: Tamazight Accompanied by: Daughter Allergies codeine [CODEINE] Allergy (Unknown, Verified 03/15/23 09:55) RASH Codeine Allergy (Unknown, Uncoded 03/15/23 09:55) Rash Medication List - Last Reconciled 03/15/23 by Nakia Dunlap MD atorvastatin 1 tab DAILY dulaglutide (Trulicity) 3 mg subcut SA@0900 ibuprofen 600 mg PO Q6H PRN lidocaine 5% (Lidoderm) 1 patch topical DAILY losartan 1 tab DAILY meloxicam 1 tab PO DAILY PRN metformin ER 1 tab PO BIDWM sertraline 1 tab PO DAILY HPI HPI Comments History of Present Illness Details Chronic numbness in both hands. Nerve conduction studies done last year by Neurology, did show prolonged latency on Right median sensory, done 11/17/2022. Patient reports that numbness has gotten worse especially on the left side. All fingers are affected. Mostly at night. She has tried braces before but has not been using it recently. Also with chronic neck pain which she attributes to arthritis. Also describes finger swelling. 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 History of diabetes. 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 MSK: Inspection reveals appropriate head and neck positioning. No pain with palpation over the neck musculature. Cervical ROM was limited on extension and lateral rotation. Spurling's sign negative. Bilateral shoulder ROM WNL. No ligamentous laxity or crepitance. No increased effusion. Hawkin's test is negative. No intrinsic hand weakness noted. No atrophy noted. Marlon test positive bilateral. Carpal compression test positive bilateral under wrist. Tinel sign also positive bilateral elbow. The fingers appear swollen but not red. Tenderness on all PIP in the AP joints on left. Strength is 5/5 in all muscle groups tested. No increased tone noted. Neurological: Neurologic examination of the upper and lower extremities was nonfocal with intact sensation, muscle stretch reflexes and without focal motor deficits . Ashley?s negative bilaterally. Babinski was down going bilaterally. Clonus was negative. Gait is non-antalgic without loss of balance. Results Reviewed Results Reviewed: I independently reviewed the results of the following: NCS table as reviewed, as above. Cervical x-ray done 01/25 showed moderate spondylosis. XR/XR shoulder RT min 2V IMPRESSION: 1. Degenerative changes as above. No fracture or dislocation right shoulder. 2. No fracture left hip. XR/XR cervical spine 3V IMPRESSION: Moderate spondylosis dorsal spine without any visible acute fracture or lytic process. No acute fracture or dislocation in cervical spine. There is moderate ventral spondylosis and bridging osteophytes C4-C5, C5-C6 and C6-C7 disc levels. I reviewed records from the following: Neurology/NCS Orthopedics Assessment & Plan Assessment & Plan (1) CTS (carpal tunnel syndrome): Code(s): G56.00 - Carpal tunnel syndrome, unspecified upper limb Plan: Symptoms have gotten worse since last year. It is reasonable to do EMG/NCS again. Patient is contemplating possible surgery. Trial of wrist splints at night again (2) Osteoarthritis involving joint of upper arm: Code(s): M19.029 - Primary osteoarthritis, unspecified elbow Plan: Will do x-rays today to rule out osteoarthritis. (3) De Quervain's tenosynovitis, bilateral: Code(s): M65.4 - Radial styloid tenosynovitis [de Quervain] Plan: Trial of thumb spica splints during the day especially at work. (4) Cervical spondylosis: Code(s): M47.812 - Spondylosis without myelopathy or radiculopathy, cervical region Plan: Chronic neck pain but no radicular symptoms at this time. No signs of myelopathy. Plan Assessment and plan discussed with patent, and patient was agreeable. All questions were answered thoroughly. Orders: Orders NE nerve conduction velocity Today G56.00 - Carpal tunnel syndrome, unspecified upper limb, M19.029 - Primary osteoarthritis, unspecified elbow XR hand LT min 3V Today G56.00 - Carpal tunnel syndrome, unspecified upper limb, M19.029 - Primary osteoarthritis, unspecified elbow XR hand RT min 3V Today G56.00 - Carpal tunnel syndrome, unspecified upper limb, M19.029 - Primary osteoarthritis, unspecified elbow Coding Level of Care Code New Pt Level 4 (48477) Diagnoses CTS (carpal tunnel syndrome) G56.00 Osteoarthritis involving joint of upper arm M19.029 De Quervain's tenosynovitis, bilateral M65.4 Cervical spondylosis M47.812
== END 2023-03-15 10:53 | disposition home or self-care (01) ==
PROVIDERS: PCP Internal Medicine; Visit Provider Physical Medicine & Rehabilitation
DX: G56.03 Carpal tunnel syndrome, bilateral upper limbs (principal); M19.021 Primary osteoarthritis, right elbow; M65.4 Radial styloid tenosynovitis [de Quervain]; M47.812 Spondylosis without myelopathy or radiculopathy, cervical region; M19.022 Primary osteoarthritis, left elbow
CPT/HCPCS: 99214

== ENCOUNTER 2023-03-15 09:48 | Outpatient (REF) | payer MEDICAID, SELFPAY ==
--- NOTE | ~2023-03-15 | XR_ITS ---
EXAMINATION: XR hand LT min 3V, XR hand RT min 3V CLINICAL INFORMATION: Osteoarthritis COMPARISON: Wrist radiographs 12/02/2019 and bilateral hand radiographs 06/04/2006 TECHNIQUE: 3 views of the bilateral hands FINDINGS: RIGHT HAND: No fracture or dislocation. Mild degenerative changes of the interphalangeal joints with degenerative spurring progressed from prior. No cortical erosion. Soft tissues are unremarkable. LEFT HAND: No fracture or dislocation. Mild degenerative changes of the interphalangeal joints with degenerative spurring regressed from prior. No cortical erosion. Soft tissues are unremarkable. XR/XR hand LT min 3V IMPRESSION: Mild degenerative changes of the interphalangeal joints progressed from prior.
--- NOTE | ~2023-03-15 | XR_ITS ---
EXAMINATION: XR hand LT min 3V, XR hand RT min 3V CLINICAL INFORMATION: Osteoarthritis COMPARISON: Wrist radiographs 12/02/2019 and bilateral hand radiographs 06/04/2006 TECHNIQUE: 3 views of the bilateral hands FINDINGS: RIGHT HAND: No fracture or dislocation. Mild degenerative changes of the interphalangeal joints with degenerative spurring progressed from prior. No cortical erosion. Soft tissues are unremarkable. LEFT HAND: No fracture or dislocation. Mild degenerative changes of the interphalangeal joints with degenerative spurring regressed from prior. No cortical erosion. Soft tissues are unremarkable. XR/XR hand RT min 3V IMPRESSION: Mild degenerative changes of the interphalangeal joints progressed from prior.
== END 2023-03-15 09:49 | disposition home or self-care (01) ==
LOC: HO.HOSX 09:48
PROVIDERS: PCP Internal Medicine; Visit Provider Physical Medicine & Rehabilitation
DX: G56.00 Carpal tunnel syndrome, unspecified upper limb (principal); M19.021 Primary osteoarthritis, right elbow; M65.4 Radial styloid tenosynovitis [de Quervain]; M47.812 Spondylosis without myelopathy or radiculopathy, cervical region
CPT/HCPCS: 73130; 99212

== ENCOUNTER 2023-04-27 12:45 | Outpatient (REF) | payer MEDICAID, SELFPAY ==
--- NOTE | 2023-04-27 12:49 | EMG_ITS ---
Chief complaint: Worsening hand pain/numbness at night Reason for referral: Evaluate for Carpal Tunnel Syndrome, repeat and compare Procedure done: Bilateral upper extremities NCS/EMG Precautions and/or limitations: None The limb temperature was monitored continuously and remained between 32-36 degrees C during the performance of the NCS. Nerve Conduction Studies Anti Sensory Summary Table ?Stim Site NR Onset (ms) Norm Onset (ms) Peak (ms) Norm Peak (ms) O-P Amp (?V) Norm O-P Amp Site1 Site2 Delta-0 (ms) Dist (cm) Bill (m/s) Norm Bill (m/s) Left Median Anti Sensory (2nd Digit) Wrist ? 2.8 3.3 <3.6 17.8 >10 Wrist 2nd Digit 2.8 14.0 50 Right Median Anti Sensory (2nd Digit) Wrist ? 3.0 3.4 <3.6 17.1 >10 Wrist 2nd Digit 3.0 14.0 47 Right Ulnar Anti Sensory (5th Digit) Wrist ? 2.1 3.0 <3.7 17.7 >15.0 Wrist 5th Digit 2.1 14.0 67 Motor Summary Table ?Stim Site NR Onset (ms) Norm Onset (ms) O-P Amp (mV) Norm O-P Amp iAmp (mV) Amp (1st) (%) Site1 Site2 Delta-0 (ms) Dist (cm) Bill (m/s) Norm Bill (m/s) Left Median Motor (Abd Poll Brev) Wrist ? 3.1 <3.9 10.3 >4.5 15.1 100.0 Elbow Wrist 3.6 21.0 58 >45 Elbow ? 6.7 8.8 12.9 85.4 Right Median Motor (Abd Poll Brev) Wrist ? 3.9 <3.9 6.2 >4.5 7.9 100.0 Elbow Wrist 4.0 22.0 55 >45 Elbow ? 7.9 5.3 6.9 85.5 Left Ulnar Motor (Abd Dig Minimi) Wrist ? 2.6 <3.0 5.8 >5 7.1 100.0 B Elbow Wrist 3.2 18.5 58 >45 B Elbow ? 5.8 5.9 7.2 101.7 A Elbow B Elbow 1.3 10.0 77 >45 A Elbow ? 7.1 5.3 6.4 91.4 Right Ulnar Motor (Abd Dig Minimi) Wrist ? 2.7 <3.0 6.0 >5 7.2 100.0 B Elbow Wrist 2.9 20.0 69 >45 B Elbow ? 5.6 6.5 7.9 108.3 A Elbow B Elbow 1.4 10.0 71 >45 A Elbow ? 7.0 6.5 7.9 108.3 Comparison Summary Table ?Stim Site NR Peak (ms) Norm Peak (ms) P-T Amp (?V) Site1 Site2 Delta-P (ms) Norm Delta (ms) Left Median/Radial Dig I Comparison (Digit 1 - 10cm) Median ? 2.9 <2.9 78.8 Median Radial 0.5 Radial ? 2.4 <2.8 9.4 Right Median/Radial Dig I Comparison (Digit 1 - 10cm) Median ? 3.1 <2.9 32.0 Median Radial 1.0 Radial ? 2.1 <2.8 8.7 EMG ?Side Muscle Nerve Root Ins Act Fibs Psw Amp Dur Poly Recrt Int Pat Comment Right 1stDorInt Ulnar C8-T1 Nml Nml Nml Nml Nml 0 Nml Complete Right FlexCarRad Median C6-7 Nml Nml Nml Nml Nml 0 Nml Complete Right Biceps Musculocut C5-6 Nml Nml Nml Nml Nml 0 Nml Complete Right Triceps Radial C6-7-8 Nml Nml Nml Nml Nml 0 Nml Complete Right Deltoid Axillary C5-6 Nml Nml Nml Nml Nml 0 Nml Complete Left 1stDorInt Ulnar C8-T1 Nml Nml Nml Nml Nml 0 Nml Complete Left FlexCarRad Median C6-7 Nml Nml Nml Nml Nml 0 Nml Complete Left Biceps Musculocut C5-6 Nml Nml Nml Nml Nml 0 Nml Complete Left Triceps Radial C6-7-8 Nml Nml Nml Nml Nml 0 Nml Complete Left Deltoid Axillary C5-6 Nml Nml Nml Nml Nml 0 Nml Complete FINDINGS: Significant interlatency difference between median and radial sensory nerves, bilateral. Otherwise, all other motor and sensory nerves tested showed normal latencies, amplitudes and conduction velocities. Concentric needle EMG was performed in selected muscles of the bilateral upper extremities. Study did not reveal signs of electric abnormalities as shown in the table below. IMPRESSION: 1. This is an abnormal study. 2. There is electrodiagnostic evidence for bilateral borderline/very mild median neuropathy at the wrists, consistent with carpal tunnel syndrome. 3. There is no electrodiagnostic evidence for ulnar neuropathy, brachial plexopathy, or cervical radiculopathy. Thank you for your kind referral. Nakia Dunlap MD, NOAM Board Certified, [place] Board [employer] and Rehabilitation (ABPMR) Board Certified, [place] Board of Electrodiagnostic Medicine (ABEM) CODIN 78992 x2 MTDD
== END 2023-04-27 12:46 | disposition home or self-care (01) ==
LOC: HO.NEURO 12:45
PROVIDERS: PCP Internal Medicine; Visit Provider Physical Medicine & Rehabilitation
DX: R20.0 Anesthesia of skin (principal); M79.641 Pain in right hand; M79.642 Pain in left hand
CPT/HCPCS: 95886; 95911

== ENCOUNTER → 2023-04-27 12:49 | Outpatient (BNV) | payer MEDICAID, SELFPAY | PROVIDERS: PCP Internal Medicine; Visit Provider Physical Medicine & Rehabilitation | DX: G56.13 Other lesions of median nerve, bilateral upper limbs (principal); G56.03 Carpal tunnel syndrome, bilateral upper limbs | CPT/HCPCS: 95886; 95911; J3301 ==

== ENCOUNTER 2023-05-02 10:49 | Outpatient (AMB) | payer MEDICAID, SELFPAY ==
--- NOTE | 2023-05-02 10:52 | A.OFFVIS_ITS ---
Intake Vital Signs 05/02/23 10:55 Height 5 ft 6 in Weight 191 lb BMI 30.8 Intake Visit Reasons: O/V EMG and B/L hand xray review Intake Note: Keyonna is a 53 year old right hand dominant female presents today for a follow up of her bilateral hands s/p EMG and XR. Application Packager Required: Yes Allergies codeine [CODEINE] Allergy (Unknown, Verified 03/15/23 09:55) RASH Codeine Allergy (Unknown, Uncoded 03/15/23 09:55) Rash HPI HPI Comments History of Present Illness Details Chronic numbness in both hands. Nerve conduction studies done last year by Neurology, did show prolonged latency on Right median sensory, done 11/17/2022. Patient reports that numbness has gotten worse especially on the left side. All fingers are affected. Mostly at night. She has tried braces before but has not been using it recently. Also with chronic neck pain which she attributes to arthritis. Also describes finger swelling. 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 History of diabetes. EMG done last week showed borderline/very mild Carpal Tunnel Syndrome bilateral, based on prolonged interlatency difference between median and radial sensory n erves. Rest of NCS were normal. She continues to have pain 8/10, right worse than left. 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 MSK: No intrinsic hand weakness noted. No atrophy noted. Carpal compression test positive bilateral under wrist. Tinel sign also positive bilateral elbow. Tenderness on all PIP and DIP joints. Strength is 5/5 in all muscle groups tested. No increased tone noted. Neurological: Neurologic examination of the upper and lower extremities was nonfocal with intact sensation, muscle stretch reflexes and without focal motor deficits . Ashley?s negative bilaterally. Gait is non-antalgic without loss of balance. Office Procedures Therapeutic Injection Therapeutic Injection Details: Consent obtained. Patient places right hand palm up. Wrist is cleansed with b etadine solution. A 25 gauge needle is inserted just ulnar to the palmaris longus tendon and at the proximal wrist crease. The needle is inserted at a 30- degree angle and directed towards the ring finger. A solution containing 20mg Kenalog is injected. Patient tolerated procedure well without complications. Post-injection instructions given. 55149-[id number] Tunnel Injection, therapeutic All charges added?: Procedure code (CPT) selection complete Office Meds triamcinolone acetonide 40 mg/mL suspension for injection Performing Provider: Nakia Dunlap MD Performing Location: [facility] [place] Orthopedic Surgeons Documented (not given) by: Nakia Dunlap MD on 05/02/23 11:17 Dose Route Admin Location Dispensed Lot Number Expiration Date [facility] Reconstructive Surgeon 20 mg Tendon Sheath Inj. mL Results Reviewed Results Reviewed: EMG IMPRESSION: 1. This is an abnormal study. 2. There is electrodiagnostic evidence for bilateral borderline/very mild median neuropathy at the wrists, consistent with carpal tunnel syndrome. 3. There is no electrodiagnostic evidence for ulnar neuropathy, brachial plexopathy, or cervical radiculopathy. XR hand LT min 3V, XR hand RT min 3V CLINICAL INFORMATION: Osteoarthritis COMPARISON: Wrist radiographs 12/02/2019 and bilateral hand radiographs 06/04/2006 TECHNIQUE: 3 views of the bilateral hands FINDINGS: RIGHT HAND: No fracture or dislocation. Mild degenerative changes of the interphalangeal joints with degenerative spurring progressed from prior. No cortical erosion. Soft tissues are unremarkable. LEFT HAND: No fracture or dislocation. Mild degenerative changes of the interphalangeal joints with degenerative spurring regressed from prior. No cortical erosion. Soft tissues are unremarkable. XR/XR hand RT min 3V IMPRESSION: Mild degenerative changes of the interphalangeal joints progressed from prior. Assessment & Plan Assessment & Plan (1) CTS (carpal tunnel syndrome): Code(s): G56.00 - Carpal tunnel syndrome, unspecified upper limb Qualifiers: Laterality: bilateral Qualified Code(s): G56.03 - Carpal tunnel syndrome, bilateral upper limbs (2) Degenerative joint disease of hand: Code(s): M19.049 - Primary osteoarthritis, unspecified hand Qualifiers: Osteoarthritis type: primary Laterality: bilateral Qualified Code(s): M19.041 - Primary osteoarthritis, right hand; M19.042 - Primary osteoarthritis, left hand Plan Discussed results of EMG and hand x-rays. She is not looking for surgery and I agree since EMG results were borderline/very mild. She does need some kind of pain relief to be able to do her work. She would like to proceed with right Carpal Tunnel Syndrome injection today. Return in 1 month for left Carpal Tunnel Syndrome injection. Advised to watch blood sugar and diet this week as steroid can increase her blood sugar levels temporarily. Assessment and plan discussed with patient, and patient was agreeable. All questions were answered thoroughly. Nakia Dunlap MD, NOAM Board Certified, [place] Board [employer] and Rehabilitation (ABPMR) Board Certified, [place] Board of Electrodiagnostic Medicine (ABEM) Orders: Orders Trigger Point Injection Today M65.4 - Radial styloid tenosynovitis [de Quervain] Medications: New triamcinolone acetonide 20 mg (0.5 mL) Tendon Sheath Inj. ONCE 0.5 mL 0RF M65.4 - Radial styloid tenosynovitis [de Quervain] Coding Level of Care Code Est Pt Level 3 (04577) Diagnoses Bilateral carpal tunnel syndrome G56.03 Laterality: bilateral Primary osteoarthritis of both hands M19.041; M19.042 Osteoarthritis type: primary Laterality: bilateral CPT Codes Therapeutic Injection - Ther Injection 3: 02111-Yhyoxt Tunnel Injection, therapeutic ([id number])
[2023-05-02 10:55] VITALS: BMI 30.8
== END 2023-05-02 11:23 | disposition home or self-care (01) ==
PROVIDERS: PCP Internal Medicine; Visit Provider Physical Medicine & Rehabilitation
DX: G56.03 Carpal tunnel syndrome, bilateral upper limbs (principal); M19.041 Primary osteoarthritis, right hand; M19.042 Primary osteoarthritis, left hand
CPT/HCPCS: 20526; 99213

== ENCOUNTER → 2023-05-02 10:49 | Outpatient (BNVA) | payer MEDICAID, SELFPAY | PROVIDERS: PCP Internal Medicine; Visit Provider Physical Medicine & Rehabilitation | DX: M65.4 Radial styloid tenosynovitis [de Quervain] (principal); G56.03 Carpal tunnel syndrome, bilateral upper limbs; M19.041 Primary osteoarthritis, right hand; M19.042 Primary osteoarthritis, left hand | CPT/HCPCS: 20526; 99212 ==

== ENCOUNTER 2023-06-07 10:48 | Outpatient (AMB) | payer MEDICAID, SELFPAY ==
[2023-06-07 10:58] VITALS: BMI 30.8
--- NOTE | 2023-06-07 10:58 | MHC.OFFVIS ---
Intake Vital Signs 06/07/23 10:58 Height 5 ft 6 in Weight 191 lb BMI 30.8 Intake Visit Reasons: left Carpal Tunnel Syndrome injection Intake Note: Keyonna 53 yr old female who is right hand dominant presents today for her right hand CTS injection. States injection from 05/02/23 did not help. She continues to have numbness and tingling. 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 Nerve conduction studies done last year by Neurology, did show prolonged latency on Right median sensory, done 11/17/2022. Patient reports that numbness has gotten worse especially on the left side. All fingers are affected. Mostly at night. She has tried braces before but has not been using it recently. Also with chronic neck pain which she attributes to arthritis. Also describes finger swelling. 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 History of diabetes. Repeat EMG done by me showed borderline/very mild Carpal Tunnel Syndrome bilateral, based on prolonged interlatency difference between median and radial sensory nerves. Rest of NCS were normal. She says right CTS injection done by me did not provide any relief. Reports increased blood sugar with steroid injection. She has constant hand pain especially when she tries to lift. Xrays showed DJD on finger joints. 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 MSK: No intrinsic hand weakness noted. No atrophy noted. Carpal compression test today is NEGATIVE NO tenderness today on all PIP and DIP joints. POSITIVE cintia test bilateral today. Strength is 5/5 in all muscle groups tested. No increased tone noted. Neurological: Neurologic examination of the upper and lower extremities was nonfocal with intact sensation, muscle stretch reflexes and without focal motor deficits . Ashley?s negative bilaterally. Gait is non-antalgic without loss of balance. Results Reviewed Results Reviewed: Ordering Physician: Nakia Dunlap MD Date of Service: 03/15/23 Procedure(s): XR hand RT min 3V Accession Number(s): [id number] cc: Nakia Dunlap MD~ EXAMINATION: XR hand LT min 3V, XR hand RT min 3V CLINICAL INFORMATION: Osteoarthritis COMPARISON: Wrist radiographs 12/02/2019 and bilateral hand radiographs 06/04/2006 TECHNIQUE: 3 views of the bilateral hands FINDINGS: RIGHT HAND: No fracture or dislocation. Mild degenerative changes of the interphalangeal joints with degenerative spurring progressed from prior. No cortical erosion. Soft tissues are unremarkable. LEFT HAND: No fracture or dislocation. Mild degenerative changes of the interphalangeal joints with degenerative spurring regressed from prior. No cortical erosion. Soft tissues are unremarkable. XR/XR hand RT min 3V IMPRESSION: Mild degenerative changes of the interphalangeal joints progressed from prior. Assessment & Plan Assessment & Plan (1) De Quervain's tenosynovitis, bilateral: Code(s): M65.4 - Radial styloid tenosynovitis [de Quervain] (2) Degenerative joint disease of hand: Code(s): M19.049 - Primary osteoarthritis, unspecified hand Qualifiers: Laterality: bilateral Osteoarthritis type: primary Qualified Code(s): M19.041 - Primary osteoarthritis, right hand; M19.042 - Primary osteoarthritis, left hand (3) CTS (carpal tunnel syndrome): Code(s): G56.00 - Carpal tunnel syndrome, unspecified upper limb Qualifiers: Laterality: bilateral Qualified Code(s): G56.03 - Carpal tunnel syndrome, bilateral upper limbs Plan Chronic hand pain in setting of mild CTS on NCS/EMG and arthritis on xrays. Exam today suggestive of De Quervain tenosynovitis. Will put her on thumb spica splint bilateral. To wear during the day. She asks for work letter for restrictions on lifting. She works at [employer]. We can given her a letter of no lifting above 5 lbs for 4 weeks, to rest the hand of any inflammation. Assessment and plan discussed with patient, and patient was agreeable. All questions were answered thoroughly. Follow-up 3 months. Total of 30 spent today including chart review, results review, history taking, physical examination, discussion of assessment and plan, and coordination of care. Nakia Dunlap MD, NOAM Board Certified, [place] Board [employer] and Rehabilitation (ABPMR) Board Certified, [place] Board of Electrodiagnostic Medicine (ABEM) Coding Level of Care Code Est Pt Level 4 (69855) Diagnoses De Quervain's tenosynovitis, bilateral M65.4 Primary osteoarthritis of both hands M19.041; M19.042 Laterality: bilateral Osteoarthritis type: primary Bilateral carpal tunnel syndrome G56.03 Laterality: bilateral
== END 2023-06-07 11:36 | disposition home or self-care (01) ==
PROVIDERS: PCP Internal Medicine; Visit Provider Physical Medicine & Rehabilitation
DX: M65.4 Radial styloid tenosynovitis [de Quervain] (principal); M19.041 Primary osteoarthritis, right hand; M19.042 Primary osteoarthritis, left hand; G56.03 Carpal tunnel syndrome, bilateral upper limbs
CPT/HCPCS: 99214

== ENCOUNTER → 2023-06-07 10:48 | Outpatient (BNVA) | payer MEDICAID, SELFPAY | PROVIDERS: PCP Internal Medicine; Visit Provider Physical Medicine & Rehabilitation | DX: G56.03 Carpal tunnel syndrome, bilateral upper limbs (principal); M65.4 Radial styloid tenosynovitis [de Quervain]; M19.042 Primary osteoarthritis, left hand; M19.041 Primary osteoarthritis, right hand | CPT/HCPCS: 99212 ==

== ENCOUNTER 2023-09-05 10:40 | Outpatient (AMB) | payer MEDICAID, SELFPAY ==
--- NOTE | 2023-09-05 10:52 | MHC.OFFVIS ---
Intake Vital Signs 09/05/23 11:05 Height 5 ft 6 in Weight 191 lb BMI 30.8 Intake Visit Reasons: OV-left Carpal Tunnel Syndrome Intake Note: Keyonna is a 53 year old right hand dominant female who presents today for a follow up of her left carpal tunnel. Last injection done 05/03/23, which was not helpful. She works at [employer], In june she was given a lifting restriction for work, no lifting above 5 lbs for 4 weeks. She reports that her pain has increased and her numbness has persisted - worse at rest. 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 Nerve conduction studies done last year by Neurology, did show prolonged latency on Right median sensory, done 11/17/2022. Patient reports that numbness has gotten worse especially on the left side. All fingers are affected. Mostly at night. She has tried braces before but has not been using it recently. Also with chronic neck pain which she attributes to arthritis. Also describes finger swelling. 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 History of diabetes. Repeat EMG done by me showed borderline/very mild Carpal Tunnel Syndrome bilateral, based on prolonged interlatency difference between median and radial sensory nerves. Rest of NCS were normal. She says right CTS injection done by me 05/02/2023, did not provide any relief. Reports increased blood sugar with steroid injection. She has constant hand pain especially when she tries to lift. Xrays showed degnerative changes on finger DIP joints. Was given last visit, no lifting above 5 lb, she works at [email or web address]. Patient says there is no improvement on her hand pain, right worse than left. Points to volar wrist. Denies any pain on thumb. Numbness on 1st to 4th digits, not on the 5th digit. She wears her wrist splints after work and at night. She also complains of neck pain. Her history of cervical spondylosis. Two months ago started having left lateral hip and buttock pain. Denies any injuries. Denies any groin pain. Denies any back pain. 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 Physical Exam Vital Signs: BMI result Body Mass Index 30.8 Constitutional: Patient appears to be in no acute distress, well nourished and well developed. MSK: No intrinsic hand weakness noted. No atrophy noted. Carpal compression test today is positive today bilateral. NO tenderness today on all PIP and DIP joints. Negative cintia test bilateral today. Tender over left greater trochanter. And along the ITB. Negative CHRISTINA. Negative SLR B Strength is 5/5 in all muscle groups tested. No increased tone noted. Neurological: Neurologic examination of the upper and lower extremities was nonfocal with intact sensation, muscle stretch reflexes and without focal motor deficits . Ashley?s negative bilaterally. Gait is non-antalgic without loss of balance. Results Reviewed Results Reviewed: Ordering Physician: Nakia Dunlap MD Date of Service: 03/15/23 Procedure(s): XR hand RT min 3V Accession Number(s): [id number] cc: Nakia Dunlap MD~ EXAMINATION: XR hand LT min 3V, XR hand RT min 3V CLINICAL INFORMATION: Osteoarthritis COMPARISON: Wrist radiographs 12/02/2019 and bilateral hand radiographs 06/04/2006 TECHNIQUE: 3 views of the bilateral hands FINDINGS: RIGHT HAND: No fracture or dislocation. Mild degenerative changes of the interphalangeal joints with degenerative spurring progressed from prior. No cortical erosion. Soft tissues are unremarkable. LEFT HAND: No fracture or dislocation. Mild degenerative changes of the interphalangeal joints with degenerative spurring regressed from prior. No cortical erosion. Soft tissues are unremarkable. XR/XR hand RT min 3V IMPRESSION: Mild degenerative changes of the interphalangeal joints progressed from prior. XR CERVICAL SPINE XR THORACIC SPINE CLINICAL INFORMATION: History of arthritis. COMPARISON: None TECHNIQUE: Cervical spine 3 views. Thoracic spine 3 views. FINDINGS: CERVICAL SPINE: There is normal cervical lordosis. The vertebral heights and alignment are normal. There is moderate ventral spondylosis C4-C5, C5-C6 and C6-C7 disc levels. No visible acute fracture, dislocation or subluxation seen. The craniovertebral junction and the C1-C2 alignment are normal. DORSAL SPINE: There is normal thoracic kyphosis. The vertebral heights and alignment are normal. There is moderate right paravertebral and anterior osteophytes along the mid dorsal spine. No visible acute fracture, dislocation or lytic process seen. The paravertebral soft tissues are normal. XR/XR cervical spine 3V IMPRESSION: Moderate spondylosis dorsal spine without any visible acute fracture or lytic process. No acute fracture or dislocation in cervical spine. There is moderate ventral spondylosis and bridging osteophytes C4-C5, C5-C6 and C6-C7 disc levels. EMG by ks 04/27 FINDINGS: Significant interlatency difference between median and radial sensory nerves, bilateral. Otherwise, all other motor and sensory nerves tested showed normal latencies, amplitudes and conduction velocities. Concentric needle EMG was performed in selected muscles of the bilateral upper extremities. Study did not reveal signs of electric abnormalities as shown in the table below. IMPRESSION: 1. This is an abnormal study. 2. There is electrodiagnostic evidence for bilateral borderline/very mild median neuropathy at the wrists, consistent with carpal tunnel syndrome. 3. There is no electrodiagnostic evidence for ulnar neuropathy, brachial plexopathy, or cervical radiculopathy. Assessment & Plan Assessment & Plan (1) Carpal tunnel syndrome on both sides: Code(s): G56.03 - Carpal tunnel syndrome, bilateral upper limbs (2) Cervical spondylosis: Code(s): M47.812 - Spondylosis without myelopathy or radiculopathy, cervical region (3) Myofascial pain: Code(s): M79.18 - Myalgia, other site (4) Trochanteric bursitis of left hip: Code(s): M70.62 - Trochanteric bursitis, left hip (5) ITB syndrome: Code(s): M76.30 - Iliotibial band syndrome, unspecified leg Qualifiers: Laterality: left Qualified Code(s): M76.32 - Iliotibial band syndrome, left leg Plan 1. Since she has undergone adequate conservative management for Carpal Tunnel Syndrome, without improvement, she will be referred to Dr. Feliz for consideration of surgery. We are aware that EMG only showed mild Carpal Tunnel Syndrome, however her symptoms affect her on a daily basis and affect her work functionality. Patient agrees. 2. Starting to have neck pain in relation to difficulties with her hands. History of cervical spondylosis, x-ray in the past had shown this. Possible myofascial. No signs of myelopathy or radiculopathy on exam today. Patient agrees to starting therapy. Will refer to OTC today can work on upper body/neck/hands. 3. Possible left greater trochanter bursitis. Will refer to physical therapy to work on trochanter and ITB. Assessment and plan discussed with patient, and patient was agreeable. All questions were answered thoroughly. Nakia Dunlap MD, NOAM Board Certified, [place] Board [employer] Physical Medicine and Rehabilitation (ABPMR) Board Certified, [place] Board [employer] Electrodiagnostic Medicine (ABEM) Orders: Orders PT Evaluation and Treatment Today M70.62 - Trochanteric bursitis, left hip, M76.30 - Iliotibial band syndrome, unspecified leg OT Evaluation and Treatment Today G56.00 - Carpal tunnel syndrome, unspecified upper limb, M47.812 - Spondylosis without myelopathy or radiculopathy, cervical region, M79.18 - Myalgia, other site Referrals Orthopedics Referral G56.03 - Carpal tunnel syndrome, bilateral upper limbs Coding Level of Care Code Est Pt Level 4 (64422) Diagnoses Carpal tunnel syndrome on both sides G56.03 Cervical spondylosis M47.812 Myofascial pain M79.18 Trochanteric bursitis of left hip M70.62 Iliotibial band syndrome of left side M76.32 Laterality: left
[2023-09-05 11:05] VITALS: BMI 30.8
== END 2023-09-05 11:40 | disposition home or self-care (01) ==
PROVIDERS: PCP Internal Medicine; Referring Provider Internal Medicine; Visit Provider Physical Medicine & Rehabilitation
DX: G56.03 Carpal tunnel syndrome, bilateral upper limbs (principal); M47.812 Spondylosis without myelopathy or radiculopathy, cervical region; M79.18 Myalgia, other site; M70.62 Trochanteric bursitis, left hip; M76.32 Iliotibial band syndrome, left leg
CPT/HCPCS: 99214

== ENCOUNTER → 2023-09-05 10:40 | Outpatient (BNVA) | payer MEDICAID, SELFPAY | PROVIDERS: PCP Internal Medicine; Visit Provider Physical Medicine & Rehabilitation | DX: G56.03 Carpal tunnel syndrome, bilateral upper limbs (principal); M47.812 Spondylosis without myelopathy or radiculopathy, cervical region; M79.18 Myalgia, other site; M70.62 Trochanteric bursitis, left hip; M76.32 Iliotibial band syndrome, left leg | CPT/HCPCS: 99212 ==

== ENCOUNTER 2023-09-06 10:19 | Emergency (ER) | payer MEDICAID, SELFPAY ==
[2023-09-06 10:33] VITALS: BP 156/63; PULSE 70; RESP 16; TEMP 36.4; O2SAT 98; BMI 28.2
[2023-09-06] MEDS: Ketorolac Tromethamine 30 MG/ML VIAL IM (11:51)
--- NOTE | 2023-09-06 12:25 | ED_ITS ---
HPI - General Adult General Chief complaint: General Medical Stated complaint: Pain right side of face Time Seen by Provider: 09/06/23 11:17 Source: patient, RN notes reviewed and old records reviewed Mode of arrival: ambulatory History of Present Illness HPI narrative: 53-year-old female with a past medical history of depression, diabetes, arthritis, presenting to the ED complaining of pain to right preauricular area, worse with mouth movement in chewing x few days. Has been taking ibuprofen without relief. Denies fever, chills, ear pain, sore throat, intraoral pain/recent procedure, difficulty or inability to swallow Related Data Home Medications Medication Instructions Recorded Confirmed atorvastatin 10 mg tablet 1 tab DAILY 10/12/22 09/05/23 dulaglutide 3 mg/0.5 mL 3 mg subcut SA@0900 10/12/22 09/05/23 subcutaneous pen injector (Trulicity) losartan 50 mg tablet 1 tab DAILY 10/12/22 09/05/23 metformin 500 mg tablet,extended 1 tab PO BIDWM 10/12/22 09/05/23 release 24 hr sertraline 100 mg tablet 1 tab PO DAILY 10/12/22 09/05/23 Previous Rx's Medication Instructions Recorded ibuprofen 600 mg tablet 600 mg PO Q6H PRN pain #60 tabs 02/11/23 acetaminophen 500 mg tablet 500 mg PO Q6H PRN fever or pain 09/06/23 (Tylenol Extra Strength) #14 tabs naproxen 500 mg tablet 500 mg PO BID PRN pain 10 days #20 09/06/23 tabs Allergies Allergy/AdvReac Type Severity Reaction Status Date / Time codeine [CODEINE] Allergy Unknown RASH Verified 09/05/23 10:57 Codeine Allergy Unknown Rash Uncoded 09/05/23 10:57 Review of Systems Review of Systems: Constitutional: No Fever, No Chills ENT/Mouth: +facial pain, No Ear Pain, No Nasal Congestion, No Sinus Pain, No Hoarseness, No sore throat, No Rhinorrhea, No Swallowing Difficulty Cardiovascular: No Chest Pain, No SOB Respiratory: No Cough, No Wheezing Gastrointestinal: No Nausea, No Vomiting, No Abdominal pain Musculoskeletal: No joint pain, No Myalgias, No Joint Swelling Skin: No Skin Lesions, No rash Neuro: No Weakness Yes all other systems are reviewed and are negative Constitutional: Constitutional: Reports as per HPI PMFSH Past Medical History Attestation statement: The following information was validated with the patient. 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 No appreciable intraoral erythema, swelling, fluctuance or induration Head: Yes normal to inspection and Yes atraumatic Ears: hearing grossly normal bilaterally, external ears normal and TM's normal bilaterally General nose exam: Normal external nose present Face and sinus: Yes normal facial exam and Yes other (+right TMJ ttp, + palpable clicking, no erythema) Mouth: Normal oral and palatal mucosa present and no drooling Throat: Yes posterior oropharynx normal, Yes tonsils normal, Yes uvula midline, No peritonsillar mass and No uvular edema Eyes General: appearance normal, both eyes and all related structures EOM: EOMs intact bilaterally Neck Neck: Yes normal visual inspection and Yes no meningeal signs Resp Effort & Inspection: normal respiratory effort, no respiratory distress and no stridor Cardio Rate: regular rate Skin Rashes: no rashes Wounds: no wounds Neuro General: patient oriented x3, tone normal and no meningeal signs Cranial nerves: Yes CN's II-XII intact bilaterally Gait exam (Neuro): Normal gait present Extrem General: Yes normal to inspection Medications Administered Discontinued Medications Generic Name Dose Route Start Last Admin Trade Name Freq PRN Reason Stop Dose Admin Ketorolac Tromethamine 30 mg 09/06/23 11:40 09/06/23 11:51 Ketorolac Tromethamine 30 Mg/Ml Vial IM 09/06/23 11:41 30 mg ONCE ONE Administration Medical Decision Making Medical Decision Making MDM Narrative: 53-year-old female with a past medical history of depression, diabetes, arthritis, presenting to the ED complaining of pain to right preauricular area, worse with mouth movement in chewing x few days. On exam vital signs stable, NAD, nontoxic appearing, PE as above consistent with right TMJ tenderness and clicking appreciated. No evidence of infection. Mastoids WNL. Intraoral and otic exam WNL. 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 Plan: IM Toradol, ENT follow-up Please refer to course for remaining clinical decision making, interpretation of labs/imaging results, and discussions with consultants and/or family members. Differential Diagnosis Differential Diagnoses: The differential diagnosis associated with the presentation includes As above External Record Review External record reviewed: Inpatient record, Office record, Outpatient record, Prior outpatient labs, Prior outpatient radiology, Primary care record and Outside ED record Tests considered The following testing was considered but not selected: As above Prescription Management I considered prescription management with: Pain Medication Chronic Conditions Patient?s care impacted by: Other Discharge Plan Discharge Clinical Impression: TMJ (temporomandibular joint disorder) Patient Disposition: Home, Self-Care Instructions: Temporomandibular Disorder (ED) Additional Instructions: Naproxen as an anti-inflammatory/pain medicine please take with food. Do not take both naproxen/ibuprofen/Aleve or Motrin as they are all similar medications, pick 1 You may also take Tylenol Eat soft foods Follow-up with ENT specialist If symptoms persist or worsen return to the ED El naproxeno luis felipe analg?sico o antiinflamatorio se debe ameya con alimentos. No tome naproxeno/ibuprofeno/Aleve o Motrin ya que son medicamentos similares, elija 1 Tambi?n puede ameya Tylenol Coma alimentos blandos Seguimiento con otorrinolaring?logo. Si los s?ntomas persisten o empeoran, regrese al servicio de urgencias. Prescriptions: New acetaminophen [Tylenol Extra Strength] 500 mg tablet 500 mg PO Q6H PRN (Reason: fever or pain) Qty: 14 0RF naproxen 500 mg tablet 500 mg PO BID PRN (Reason: pain) 10 Days Qty: 20 0RF No Action losartan 50 mg tablet 1 tab DAILY atorvastatin 10 mg tablet 1 tab DAILY sertraline 100 mg tablet 1 tab PO DAILY metformin 500 mg tablet extended release 24 hr 1 tab PO BIDWM Trulicity 3 mg/0.5 mL pen injector 3 mg subcut SA@0900 ibuprofen 600 mg tablet 600 mg PO Q6H PRN (Reason: pain) Qty: 60 0RF triamcinolone acetonide 40 mg/mL suspension 20 mg Tendon Sheath Inj. ONCE Qty: 0.5 0RF Referrals: Vito Allen MD [Primary Care Provider] - Frederic Camarena [Physician] - Print Language: Japanese
[2023-09-06 12:55] VITALS: PULSE 75; RESP 20; O2SAT 100
== END 2023-09-06 12:56 | disposition home or self-care (01) ==
PROVIDERS: Emergency Provider Emergency Medicine; PCP Internal Medicine
DX: M26.601 Right temporomandibular joint disorder, unspecified (principal); E11.9 Type 2 diabetes mellitus without complications; Z79.85 Long-term (current) use of injectable non-insulin antidiabetic drugs; Z79.84 Long term (current) use of oral hypoglycemic drugs; Z79.899 Other long term (current) drug therapy
CPT/HCPCS: 96372; 99284; J1885

== ENCOUNTER 2023-09-14 15:00 | Outpatient (RCR) | payer MEDICAID, SELFPAY ==
--- NOTE | 2023-09-12 10:54 | MHC.PT.EP ---
[facility] [place] Office [place] Office [place] Office [address] Nisha Green [address] [phone] F: [phone] F: [phone] F: [phone] F: [phone] Physical Therapy Plan of Care Date of Evaluation: 09/12/23 Date of Surgery: N/A Diagnosis: cervical spondylosis (RL) Assessment: pt is a 53 y/o female presenting to physical therapy w/ referring diagnosis of cervical spondylosis. Impairments include pain, decreased range of motion, decreased strength, impaired functional mobility, impaired postural awareness, and altered ambulation mechanics. pt is a good candidate for skilled PT due to age, potential remediation of impairments, typical disease/condition progression and prognosis, comorbidities, and motivation. pt would benefit from skilled PT intervention to provide a tailored strengthening and stretching exercise program, functional training, gait training, postural re-training, neuromuscular re-education, modalities as needed for pain, equipment safety demonstration. Frequency and Duration: The patient will be seen 2x/wk for 4 wks Short Term Goals: pt will be I w/ HEP to promote self-management of condition. pt will demo proper sitting posture w/ lumbar roll to promote neutral spine w/ seated ADLs. 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 pt will demo proper lifting mechanics of 15# x5 reps w/o verbal cueing to promote improved tolerance to work-related tasks. Treatment Plan: Modalities to reduce pain, spasms and effusion. Manual therapy to restore motion and function. Therapeutic exercise to improve strength and flexibility. Neuromuscular re-education for posture and balance. Therapeutic activities to return to functional activities of daily living. Electronically signed by: Esperanza Laurent PT, DPT Please sign and return to therapist. Thank you for your referral.
--- NOTE | 2023-10-08 15:19 | MHC.PT.DC ---
[facility] [place] Office [place] Office [place] Office [address] Nisha Green [address] [facility] [phone] F: [phone] F: [phone] F: [phone] F: [phone] Physical Therapy Discharge Report Diagnosis: cervical spondylosis (RL) Date of Surgery: N/A Date of Evaluation: 09/12/23 Date of Discharge: 10/08/23 Treatments to Date: 2 Cancellations to Date: 1 No Shows to Date: 4 Discharge Status: Visit Non-compliance Discharge Summary: The patient has no showed four consecutive appointments. She is being discharged for non-compliance. Her symptoms are most likely the result of severely poor postural awareness as noted by significant forward head, rounded shoulders, and increased thoracic kyphosis. Electronically signed by: Esperanza Laurent PT, DPT Please sign and return to therapist. Thank you for your referral.
== END 2023-10-08 15:20 | disposition home or self-care (01) ==
LOC: HO.PT 15:00
PROVIDERS: PCP Internal Medicine; Visit Provider Physical Medicine & Rehabilitation
DX: M47.812 Spondylosis without myelopathy or radiculopathy, cervical region (principal); M79.18 Myalgia, other site; G56.00 Carpal tunnel syndrome, unspecified upper limb
CPT/HCPCS: 97110; 97140; 97162

== ENCOUNTER 2024-04-08 09:21 | Outpatient (REF) | payer MEDICAID, SELFPAY ==
[2024-04-08 14:51] LABS: MANUAL DIFF FLAG NO
[2024-04-08 14:55] LABS: Basophils Absolute Auto 0.1 X10*3/uL (0.0-0.2); Eosinophils Absolute Auto 0.1 X10*3/uL (0.0-0.4); Eosinophils Percent Auto 2.6 % (0-4); Hemoglobin 12.8 g/dl (12.0-16.0); Imm Gran Abs Auto 0.01 X10*3/uL (0.00-0.03); Imm Gran Pct Auto 0.2 % (0.0-0.4); Lymphocytes Absolute Auto 1.1 X10*3/uL (1.2-4.9); Lymphocytes Percent Auto 21.7 % (20-40); Mean Corpuscular HGB Conc 32.8 g/dl (31.0-35.0); Mean Corpuscular Hemoglobin 29.5 pg (27.0-33.0); Mean Corpuscular Volume 89.9 fL (80.0-98.0); Monocytes Absolute Auto 0.5 X10*3/uL (0.1-1.2); Monocytes Percent Auto 9.3 % (2-11); Neutrophils Absolute Auto 3.3 x10*3/uL (2.0-8.3); Neutrophils Percent Auto 65.2 % (45-73); Platelet Count 244 X10*3/uL (160-400); Red Blood Count 4.34 X10*6/uL (4.20-5.50); Red Cell Distribution Width 12.7 % (11.0-16.0); White Blood Count 5.1 X10*3/uL (4.8-10.8)
[2024-04-08 15:02] LABS: Estimated Average Glucose 114 mg/dL; Hemoglobin A1c % 5.6 % (<6.0)
[2024-04-08 15:22] LABS: Alanine Aminotransferase 16 U/L (0-31); Albumin Level 3.9 g/dL (3.5-5.0); Alkaline Phosphatase 122 U/L (39-117); Anion Gap 9 (12-20); Aspartate Amino Transferase 18 U/L (5-31); Bilirubin Total 0.6 mg/dL (0.0-1.0); Blood Urea Nitrogen 12 mg/dL (9-16); Calcium 9.9 mg/dL (8.4-10.2); Carbon Dioxide 29 mmol/L (22-29); Chloride 106 mmol/L (96-108); Cholesterol 155 mg/dL (<200); Estimated Glomerular Filt Rate > 60; Glucose Random 93 mg/dL (60-115); HDL Cholesterol 45 mg/dL (>40); LDL Cholesterol Calculated 101 mg/dL (<100); Potassium 5.1 mmol/L (3.3-5.1); Sodium 139 mmol/L (135-145); Total Protein 8.6 g/dL (6.5-8.0); Triglycerides 46 mg/dL (<150)
[2024-04-08 15:33] LABS: Creatinine Urine 120.32 mg/dL; Microalbum/Creatinine Ratio Ur 11.6 ug/mg cr (<30)
== END 2024-04-08 09:22 | disposition home or self-care (01) ==
LOC: HO.CHCLDS 09:21
PROVIDERS: Visit Provider Internal Medicine
DX: E11.42 Type 2 diabetes mellitus with diabetic polyneuropathy (principal)
CPT/HCPCS: 36415; 80053; 80061; 82043; 82570; 83036; 85025

== ENCOUNTER 2024-08-20 07:22 | Emergency (ER) | payer MEDICAID, SELFPAY ==
--- NOTE | ~2024-08-20 | XR_ITS ---
EXAMINATION: XR SHOULDER, LEFT CLINICAL INFORMATION: pain COMPARISON: X-ray dated December 02, 2019. TECHNIQUE: AP external rotation, Grashey, scapular Y, and axillary views of the left shoulder. FINDINGS: Acute cortical disruption or malalignment. No lytic or blastic lesions XR/XR shoulder LT min 2V IMPRESSION: No acute fracture or dislocation. Electronically signed by: Al Masters MD 08/20/2024 08:16 AM [facility]
[2024-08-20 07:28] VITALS: BP 161/70; PULSE 62; RESP 18; TEMP 36.3; O2SAT 96; BMI 26.3
--- NOTE | 2024-08-20 07:39 | ECG_ITS ---
Test Reason : extremity pain Blood Pressure : */* mmHG Vent. Rate : 54 BPM Atrial Rate : 54 BPM P-R Int : 188 ms QRS Dur : 88 ms QT Int : 400 ms P-R-T Axes : 1 -2 12 degrees QTcB Int : 379 ms Sinus bradycardia Minimal voltage criteria for LVH, may be normal variant ( R in aVL ) Borderline ECG When compared with ECG of 13-Oct-2022 09:08, No significant change was found Referred By: Tiffany Walker Electronically Signed By: Steven Brewer
--- NOTE | 2024-08-20 07:53 | ED_ITS ---
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 Patient reports intermittent left shoulder pain x years. Follows with ortho for treatment of tendonitis. She has received steroid injections and PT in the past. Reports pain acutely worsened around 0100 this morning while lying in bed. Pain is worse with movement of the left shoulder. She typically takes motrin for her pain however did not trial any analgesics prior to arrival. No injury/ trauma. Denies chest pain, sob, jaw pain, N/V. Related Data Home Medications ?Medication ?Instructions ?Recorded ?Confirmed atorvastatin 10 mg tablet 1 tab DAILY 10/12/22 09/05/23 dulaglutide 3 mg/0.5 mL 3 mg subcut SA@0900 10/12/22 09/05/23 subcutaneous pen injector (Trulicity) losartan 50 mg tablet 1 tab DAILY 10/12/22 09/05/23 metformin 500 mg tablet,extended 1 tab PO BIDWM 10/12/22 09/05/23 release 24 hr sertraline 100 mg tablet 1 tab PO DAILY 10/12/22 09/05/23 Previous Rx's ?Medication ?Instructions ?Recorded ibuprofen 600 mg tablet 600 mg PO Q6H PRN pain #60 tabs 02/11/23 acetaminophen 500 mg tablet 500 mg PO Q6H PRN fever or pain 09/06/23 (Tylenol Extra Strength) #14 tabs naproxen 500 mg tablet 500 mg PO BID PRN pain 10 days #20 09/06/23 tabs naproxen 500 mg tablet 500 mg PO Q12H PRN pain (scale 08/20/24 score 1-3) #20 tabs prednisone 20 mg tablet 20 mg PO DAILY 4 days #4 tabs 08/20/24 Allergies Allergy/AdvReac Type Severity Reaction Status Date / Time codeine [CODEINE] Allergy Unknown RASH Verified 08/20/24 07:35 Codeine Allergy Unknown Rash Uncoded 08/20/24 07:35 Review of Systems 2 Review of Systems: Constitutional: No fever, chills, fatigue, night sweats, weight changes ENT/Mouth: No ear pain, hearing loss, nasal congestion, sinus pain, rhinorrhea, sore throat Eyes: No eye pain, swelling, redness, vision changes, discharge Cardio: No chest pain, palpitations, BENITEZ, orthopnea, peripheral edema Pulm: No SOB, cough, sputum, wheezing, dyspnea, hemoptysis GI: No nausea, vomiting, hematemesis, abdominal pain, diarrhea, constipation, hematochezia, melena : No irregular bleeding, dysuria, frequency, urgency, hesitancy, hematuria, flank pain, urinary flow changes, urinary incontinence or retention MSK: No back pain, neck pain, joint pain, myalgias, +left shoulder pain Skin: No lesions, rashes Neuro: No weakness, numbness, paresthesias, LOC, dizziness, headache Psych: No anxiety/panic, depression, SI/HI, AH/VH All other systems reviewed and are negative. [facility] Past Medical History Attestation statement: The following information was validated with the patient. 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 Skin: Warm, dry, intact. No rashes or lesions. Head: Normocephalic, atraumatic. EENT: Hearing is intact b/l. Conjunctiva clear. PERRLA. EOM intact. Moist mucous membranes.? Neck: Supple without LAD Cardiac: Chest wall symmetric. RRR Lungs: Normal respiratory effort without accessory muscle use. CTA bilaterally Back: No midline spinous or paraspinal tenderness. No step off deformity. Ext: +left shoulder w/o overlying erythema/swelling. ttp over the bicipital groove and along the deltoid. limited ROM to extension/ abduction secondary to pain. 2+ radial/ulnar pulse intact. Neuro: AOx3. Normal speech.Sensation intact to light touch. NV intact distally. Ambulating with steady gait. Psych: Appropriate mood and affect. Responds appropriately to questions. Course Course Course Narrative: cbc and bmp unremarkable. trop wnl. ekg without ischemic changes. xr without acute fracture treated with toradol and prednisone with improvement in pain. exam concerning for tendonitis. plan for outpatient ortho follow up as she will likely require steroid injection. Patient has remained stable throughout ED visit today. Discussed worrisome signs and symptoms and when to return to the ED. All questions answered at this time. Patient is agreeable with disposition and stable for discharge. Medications Administered Discontinued Medications Generic Name Dose Route Start Last Admin Trade Name Dimasq PRN Reason Stop Dose Admin Ketorolac Tromethamine 30 mg 08/20/24 08:17 08/20/24 09:13 Ketorolac Tromethamine 30 Mg/Ml Vial IM 08/20/24 08:18 30 mg ONCE ONE Administration Prednisone 40 mg 08/20/24 08:17 08/20/24 09:13 Prednisone 20 Mg Tablet PO 08/20/24 08:18 40 mg ONCE ONE Administration Medical Decision Making Medical Decision Making [facility] Narrative: 54 year old Panamanian speaking female with pmhx significant for DM, depression, [facility] pain x7 hours. vital signs stable. afebrile. she is nontoxic appearing and in NAD. exam significant for left shoulder w/o overlying erythema/swelling. ttp over the bicipital groove and along the deltoid. limited ROM to extension/ abduction secondary to pain. 2+ radial/ulnar pulse intact. no chest wall tenderness. lungs clear. Differential diagnosis includes arthritis, tendonitis, rotator cuff injury, bursitis, ACS. Lower suspicion for fracture, dislocation. Presentation not consistent with gout, pseudo gout, lyme arthritis, septic joint, nv compromise, threat to limb, compartment syndrome. Plan for basic labs, trop, ekg, xr left shoulder, pain control, and re- evaluation. Differential Diagnosis Differential Diagnoses: The differential diagnosis associated with the presentation includes as above. Admission/Observation not indicated. Lab Data MDM Lab Attestation statement: I reviewed the patient's lab results. as above. 08/20/24 08:57 08/20/24 08:57 Labs: Lab Results 08/20/24 Range/Units 08:57 WBC 6.3 (4.8-10.8) X10*3/uL RBC 4.34 (4.20-5.50) X10*6/uL Hgb 12.6 (12.0-16.0) g/dl Hct 36.3 L (37.0-47.0) % MCV 83.6 (80.0-98.0) fL MCH 29.0 (27.0-33.0) pg MCHC 34.7 (31.0-35.0) g/dl RDW 12.6 (11.0-16.0) % Plt Count 201 (160-400) X10*3/uL MPV 9.9 (9.4-12.3) fL Immature Gran % (Auto) 0.3 (0.0-0.4) % Neut % (Auto) 71.6 (45-73) % Lymph % (Auto) 18.0 L (20-40) % [place] % (Auto) 7.6 (2-11) % Eos % (Auto) 1.7 (0-4) % Baso % (Auto) 0.8 (0-2) % Lymph # (Auto) 1.1 L (1.2-4.9) X10*3/uL [place] # (Auto) 0.5 (0.1-1.2) X10*3/uL Eos # (Auto) 0.1 (0.0-0.4) X10*3/uL Baso # (Auto) 0.1 (0.0-0.2) X10*3/uL Abs Immat Gran (auto) 0.02 (0.00-0.03) X10*3/uL Absolute Neuts (auto) 4.5 (2.0-8.3) x10*3/uL Absolute Nucleated RBC 0.000 (0.0-0.012) X10*3/uL Nucleated RBC % (auto) 0.0 (0.0-0.2) /100WBC Sodium 138 (135-145) mmol/L Potassium 4.6 (3.3-5.1) mmol/L Chloride 110 H (96-108) mmol/L Carbon Dioxide 24 (22-29) mmol/L Anion Gap 9 L (12-20) BUN 18 H (9-16) mg/dL Creatinine 0.62 (0.5-1.4) mg/dL Estim Creat Clear Calc 115.2 Estimated GFR > 60 Random Glucose 127 H (60-115) mg/dL Calcium 9.5 (8.4-10.2) mg/dL Troponin I High Sens < 2.7 (<3.5-17.0) ng/L Independent Interpretation I performed an independent interpretation of an: EKG and Plain X-Ray Interpretation: xr left shoulder without acute fracture. ekg showing sinus bradycardia with rate of 54 bpm, no acute ischemic changes or ST elevations. Radiology Impression Discussion of test interpretation with radiology: I have reviewed the radiologist's reading. Radiologist Impression: EXAMINATION: XR SHOULDER, LEFT CLINICAL INFORMATION: pain COMPARISON: X-ray dated December 02, 2019. TECHNIQUE: AP external rotation, Grashey, scapular Y, and axillary views of the left shoulder. FINDINGS: Acute cortical disruption or malalignment. No lytic or blastic lesions XR/XR shoulder LT min 2V IMPRESSION: No acute fracture or dislocation. Electronically signed by: Al Masters MD 08/20/2024 08:16 AM [facility] External Record Review External record reviewed: Inpatient record, Office record, Outpatient record, Prior outpatient labs, Prior outpatient radiology, Primary care record and Outside ED record Prescription Management I considered prescription management with: Pain Medication Chronic Conditions Patient?s care impacted by: Diabetes and Other (tendonitis) Social Determinants Patient?s care significantly limited by Social Determinants of Health including: Other Social Determinant of Health Critical Care Time Critical Care Time Critical Care Time: No Discharge Plan Discharge Clinical Impression: Tendonitis of left rotator cuff Patient Disposition: Home, Self-Care Instructions: Rotator Cuff Tendinitis (ED) Additional Instructions: You were evaluated in the ED today for your left shoulder pain. The xray of your left shoulder does not demonstrate fracture. Your blood work is reassuring. Your exam is consistent with acute on chronic tendonitis. I have sent naproxen to your pharmacy for you to take as needed for pain control. Do not take this with Motrin or other NSAIDs as this causes increase risk of GI bleeding. I have also send a short course of steroids to your pharmacy. If you have diabetes, please monitor your blood sugar at home as this can increase blood sugar. You need to follow up with the orthopedic office outpatient as you may require another steroid injection. Return with any new or worsening symptoms. In the case of an emergency call 911. Prescriptions: New naproxen 500 mg tablet 500 mg PO Q12H PRN (Reason: pain (scale score 1-3)) Qty: 20 0RF prednisone 20 mg tablet 20 mg PO DAILY 4 Days Qty: 4 0RF No Action losartan 50 mg tablet 1 tab DAILY atorvastatin 10 mg tablet 1 tab DAILY sertraline 100 mg tablet 1 tab PO DAILY metformin 500 mg tablet extended release 24 hr 1 tab PO BIDWM Trulicity 3 mg/0.5 mL pen injector 3 mg subcut SA@0900 ibuprofen 600 mg tablet 600 mg PO Q6H PRN (Reason: pain) Qty: 60 0RF acetaminophen [Tylenol Extra Strength] 500 mg tablet 500 mg PO Q6H PRN (Reason: fever or pain) Qty: 14 0RF naproxen 500 mg tablet 500 mg PO BID PRN (Reason: pain) 10 Days Qty: 20 0RF triamcinolone acetonide 40 mg/mL suspension 20 mg Tendon Sheath Inj. ONCE Qty: 0.5 0RF Referrals: [facility] [place] Orthopedic Surgeons [Provider Group] - 1 week (rotator cuff tendinitis) Vito Allen MD [Primary Care Provider] - Stand Alone Forms: Work/School Release Interventions: ED Discharge Assessment Last Done: 08/20/24 10:45 Discharge Date/Time: 08/20/24 10:46 Print Language: Panamanian
[2024-08-20 09:02] LABS: Basophils Absolute Auto 0.1 X10*3/uL (0.0-0.2); Basophils Percent Auto 0.8 % (0-2); Eosinophils Absolute Auto 0.1 X10*3/uL (0.0-0.4); Eosinophils Percent Auto 1.7 % (0-4); Hematocrit 36.3 % (37.0-47.0); Hemoglobin 12.6 g/dl (12.0-16.0); Imm Gran Abs Auto 0.02 X10*3/uL (0.00-0.03); Imm Gran Pct Auto 0.3 % (0.0-0.4); Lymphocytes Absolute Auto 1.1 X10*3/uL (1.2-4.9); MANUAL DIFF FLAG NO; Mean Corpuscular HGB Conc 34.7 g/dl (31.0-35.0); Mean Corpuscular Volume 83.6 fL (80.0-98.0); Mean Platelet Volume 9.9 fL (9.4-12.3); Monocytes Absolute Auto 0.5 X10*3/uL (0.1-1.2); Monocytes Percent Auto 7.6 % (2-11); Neutrophils Absolute Auto 4.5 x10*3/uL (2.0-8.3); Neutrophils Percent Auto 71.6 % (45-73); Platelet Count 201 X10*3/uL (160-400); Red Blood Count 4.34 X10*6/uL (4.20-5.50); Red Cell Distribution Width 12.6 % (11.0-16.0); White Blood Count 6.3 X10*3/uL (4.8-10.8)
[2024-08-20] MEDS: predniSONE 20 MG TABLET 40 MG PO (09:13)
[2024-08-20] MEDS: Ketorolac Tromethamine 30 MG/ML VIAL IM (09:13)
[2024-08-20 09:14] LABS: Anion Gap 9 (12-20); Blood Urea Nitrogen 18 mg/dL (9-16); Calcium 9.5 mg/dL (8.4-10.2); Carbon Dioxide 24 mmol/L (22-29); Chloride 110 mmol/L (96-108); Creatinine Clr Calc Pharmacy 115.2; Estimated Glomerular Filt Rate > 60; Glucose Random 127 mg/dL (60-115); Potassium 4.6 mmol/L (3.3-5.1); Sodium 138 mmol/L (135-145)
[2024-08-20 09:23] LABS: Troponin-I High Sensitivity < 2.7 ng/L (<3.5-17.0)
[2024-08-20 10:45] VITALS: BP 161/70; PULSE 62; RESP 18; TEMP 36.3; O2SAT 96
== END 2024-08-20 10:46 | disposition home or self-care (01) ==
PROVIDERS: Physician Assistant Medical; Emergency Provider Student in an Organized Health Care Education/Training Program; PCP Internal Medicine
DX: M75.32 Calcific tendinitis of left shoulder (principal); M25.512 Pain in left shoulder; R00.1 Bradycardia, unspecified; Z79.899 Other long term (current) drug therapy
CPT/HCPCS: 36415; 73030; 80048; 84484; 85025; 93005; 96372; 99284; J1885

== ENCOUNTER → 2024-08-20 07:39 | Outpatient (BNV) | payer MEDICAID, SELFPAY | PROVIDERS: Emergency Provider Student in an Organized Health Care Education/Training Program; PCP Internal Medicine; Visit Provider Internal Medicine Cardiovascular Disease | DX: R00.1 Bradycardia, unspecified (principal) | CPT/HCPCS: 93010 ==

== ENCOUNTER → 2024-08-20 08:00 | Outpatient (BNV) | payer MEDICAID, SELFPAY | PROVIDERS: Emergency Provider Student in an Organized Health Care Education/Training Program; PCP Internal Medicine; Visit Provider Radiology Diagnostic Radiology | DX: M25.512 Pain in left shoulder (principal) | CPT/HCPCS: 73030 ==

== ENCOUNTER 2024-08-28 12:03 | Outpatient (AMB) | payer MEDICAID, SELFPAY ==
[2024-08-28 12:27] VITALS: BMI 26.3
--- NOTE | 2024-08-28 12:27 | A.OFFVIS_ITS ---
Vital Signs 08/28/24 12:27 Height 5 ft 9 in Weight 178 lb BMI 26.3 Intake Visit Reasons: New problem-left shoulder pain Intake Note: Keyonna is a 54 year old right dominant female who presents today for a new problem visit complaining of left shoulder pain that began one week ago. Patient [place] [facility] [place]24. She denies any known injuries or surgeries. She is experiencing trouble lifting her arm. She was prescribed naproxen but it has not helped her pain. Revenue Integrity Analyst Required: Yes Revenue Integrity Analyst Language: Resp Therapist Name: [id number] Allergies codeine [CODEINE] Allergy (Unknown, Verified 08/28/24 12:28) RASH Codeine Allergy (Unknown, Uncoded 08/28/24 12:28) Rash HPI HPI New problem-left shoulder pain: Details: 54 yo female presents to the office today for left shoulder pain. She states the pain has been present for about 1 week. She denies injury. She has seen me in the past , most recent 02/2023. She had a left shoulder injection which she states was helpful. She states she has pain with reaching behind the arm or lifitng over head. She does experience pain at night with sleeping. She states she has done PT of the left shoulder in the past. 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 / [employer] Physical Exam Vital Signs: BMI result Body Mass Index 26.3 Const General: cooperative and no acute distress Orientation/consciousness: patient oriented x3 HEENT Head: Yes normal to inspection, Yes normocephalic and Yes atraumatic Eyes General: appearance normal, both eyes and all related structures Resp Effort & Inspection: normal respiratory effort and able to speak in complete sentences Cardio Rate: regular rate Peripheral pulses: Peripheral pulses 2+ throughout GI Palpation (GI): Soft to palpation Skin Lesions: no lesions Rashes: no rashes Neuro General: patient oriented x3 Extrem Other: Left shoulder normal to inspection. Tenderness over the bicipital groove and along the deltoid region of the shoulder. Forward flexion to 175, external rotation to 90, internal rotation to S1. 5/5 RTC strength. Positive davis and cross body abduction. + obriens. NVI. Office Procedures AMB Joint Injection/Aspiration Joint Injection/Aspiration Primary Site: left shoulder Prep: site was prepped using aseptic technique, ethochloride spray was applied and injection warnings given Injected: 40 mg of, DepoMedrol, with 8 mL of, 1% plain lidocaine and in the subcromial space Approach Used: posterolateral Procedure: The patient tolerated the procedure well and there was some relief with the local anesthesia Coding - Glenohumeral/Tronchanteric Bursa/Intraarticular Procedure code (CPT) selection complete Results Reviewed Results Reviewed: xrays of the left shoulder obtained 08/20/24 significant for oa Assessment & Plan Assessment & Plan (1) Tendonitis of left rotator cuff: Code(s): M75.82 - Other shoulder lesions, left shoulder Category: Medical (2) Bicipital tendinitis, left shoulder: Code(s): M75.22 - Bicipital tendinitis, left shoulder Category: Medical Plan We discussed options today which include steroid injection. They did consent to move forward with the left shoulder injection, which was tolerated well. I recommended rest, ice and elevation and OTC anti-inflammatories PRN for discomfort. We also discussed their diabetes and the effect the steroid can have on their blood glucose levels; therefore, they will continue to monitor these very closely over the next 72 hours. If there are any concerns, they should report to the ED immediately. Coding Level of Care Code Est Pt Level 3 (28119) Complex EM visit Add On G2211 Diagnoses Tendonitis of left rotator cuff M75.82 Bicipital tendinitis, left shoulder M75.22 CPT Codes Coding - Joint 7: 08903 - Glenohumeral/Tronchanteric Bursa/Intraarticular ([id number])
== END 2024-08-28 13:12 | disposition home or self-care (01) ==
PROVIDERS: PCP Internal Medicine; Visit Provider Physician Assistant
DX: M75.82 Other shoulder lesions, left shoulder (principal); M75.22 Bicipital tendinitis, left shoulder
CPT/HCPCS: 20610; 99213

== ENCOUNTER → 2024-08-28 12:03 | Outpatient (BNVA) | payer MEDICAID, SELFPAY | PROVIDERS: PCP Internal Medicine; Visit Provider Physician Assistant | DX: M75.82 Other shoulder lesions, left shoulder (principal); M75.22 Bicipital tendinitis, left shoulder | CPT/HCPCS: 20610; 99212; J1010; J2003 ==

== ENCOUNTER → 2024-11-19 14:45 | Outpatient (BNV) | payer MEDICAID, SELFPAY | PROVIDERS: PCP Internal Medicine; Visit Provider Internal Medicine | DX: Z12.31 Encounter for screening mammogram for malignant neoplasm of breast (principal) | CPT/HCPCS: 77063; 77067 ==

== ENCOUNTER 2024-11-19 14:58 | Outpatient (REF) | payer MEDICAID, SELFPAY ==
--- OUTSIDE RECORDS SUMMARY | 2024-11-19 17:42 | XMS_ITS | Encounter Summary ---
Author Organization [employer] Address [address] [place] [address] Care Team Providers Care Turn Machine Operator Name Role Phone Vito Allen MD Primary Care Prov ider Encounter Details Date Type Department Care Team (Latest Contact Info) Description 06/04/2019 Abstract [facility] Dental, Provider, DDS Social History Tobacco Use Types Packs/Day Years Used Date Smoking Tobacco: Never Assessed Comments Unknown Sex and Gender Information Value Date Recorded Sex Assigned at Female 06/05/2022 10:18 AM EDT Legal Sex Female 10:18 AM EDT Gender Identity Female 06/05/2022 10:18 AM EDT Sexual Orientation Straight 06/05/2022 10 :18 AM EDT documented as of this encounter Plan of Treatment Not on file documented as of this encounter Visit Diagnoses Not on filedocumented in this encounter Care Teams Turn Machine Operator Relationship Specialty Start Date End Date Vito Allen MD [address] [place] [address] PCP - General Internal Medicine 07/10/19 documented as of this encounter
--- OUTSIDE RECORDS SUMMARY | 2024-11-19 17:42 | XMS_ITS | Clinical Summary ---
Author Organization [employer] 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 Name Role Phone Unavailable Primary Care Provider Unavailabl e Social History Tobacco Use Types Packs/Day Years Used Date Smoking Tobacco: Never Assessed Comments Unknown Sex and Gender Information Value Date Recorded Sex Assigned at Not on file Legal Sex Female 5:08 AM EST Gender Identity Not on file Sexual Orientation Not on file Plan of Treatment Health Maintenance Due Date Last Done Comments Breast Cancer Screening 1970 DTaP,Tdap,and Td Vaccines (1 - Tdap) 01/24/1987 Hepatitis B Vaccines (1 of 3 - 19+ 3-dose series) 01/24/1987 Cervical Cancer Screening: P ap Smear 01/24/1989 Pneumococcal Vaccine: 50+ Ye ars (1 of 1 - PCV) 01/24/2018 Zoster Vaccines (1 of 2) 01/24/2018 COVID-19 Vaccine ( - 2023-2 5 season) 2024 Influenza Vaccine (Season Ended) 2025 HIB Vaccines Aged Out No longer eligi ble based on patient's age to complete this topic HPV Vaccines Aged Out No longer eligi ble based on patient's age to complete this topic Hepatitis A Vaccines Aged Out No long er eligible based on patient's age to complete this topic IPV Vaccines Aged Out No longer eligi ble based on patient's age to complete this topic MMR Vaccines Aged Out No longer eligi ble based on patient's age to complete this topic Meningococcal ACWY Vaccine Aged Out N o longer eligible based on patient's age to complete this topic Meningococcal B Vaccine Aged Out No l onger eligible based on patient's age to complete this topic Pneumococcal Vaccine: Pediat rics (0 to 5 Years) and At-Risk Patients (6 to 64 Years) Aged Out No longer eligible b ased on patient's age to complete this topic RSV Immunization Patients Un yani 20 months Aged Out No longer eligible b ased on patient's age to complete this topic Varicella Vaccines Aged Out No longer eligible based on patient's age to complete this topic
--- OUTSIDE RECORDS SUMMARY | 2024-11-19 17:42 | XMS_ITS | Clinical Summary ---
Author Organization [employer] Address [address] [place] [address] Care Team Providers Care Bank Guard Name Role Phone Vito Allen MD Primary Care Prov ider Allergies Active Allergy Reactions Criticality Noted Date Comments Codeine 12/20/2017 Medications Blood Pressure Monitoring (Omron 3 Series BP Monitor) device Check blood pressure on arm as directed EVERY DAY 2 Active cholecalcifero l (Vitamin D-3) 50 MCG (1999 UT) capsule Take 1 capsule by mouth once a day 9 Active Levonorgestrel (MIRENA, 52 MG, IU) 8 Active Misc Natural Products (Glucosamine Chond Cmp Advanced) tablet Take 1 capsule by mouth twice a day 0 Active melatonin 5 MG tablet Take 1-2 tablets by mouth at bedtime 8 Active TRUEplus Lancets 33G misc TEST BLOOD SUGAR ONCE DAILY OR DIRECTED 100 each 11 3 Active meloxicam (Mobic) 15 MG tabletIndicati ons:Arthritis TAKE ONE TABLET DAILY NEEDED FOR PAIN 30 tablet 1 3 Active Trulicity 3 MG/0.5ML solution pen-injectorIn dications:Type 2 diabetes mellitus with diabetic polyneuropathy , without long-term current use of insulin (CMS/HCC) INJECT ONE PEN (=3MG) SUBCUTANEOUSLY ONCE A WEEK 2 mL 1 3 Active sertraline (Zoloft) 100 MG tabletIndicati ons:Recurrent major depression in partial remission (CMS/HCC) Take 1.5 tablets (150 mg) by mouth at bedtime. 135 tablet 3 4 Active atorvastatin (Lipitor) 10 MG tablet Take 1 tablet (10 mg) by mouth Once per day. 90 tablet 3 4 025 Active glucose blood (FREESTYLE LITE) test strip Daily blood glucose monitoring 50 strip 11 4 Active Blood Glucose Monitoring Suppl (FreeStyle Lite) w/Device kit 1 kit Once per day. 1 kit 4 Active metFORMIN XR (Glucophage-XR ) 500 MG 24 hr tablet TAKE TWO TABLETS BY MOUTH EVERY DAY WITH DINNER 180 tablet 3 4 Active losartan (Cozaar) 100 MG tablet TAKE ONE TABLET EVERY MORNING 90 tablet 3 4 Active Trulicity 3 MG/0.5ML solution auto-injectorI ndications:Typ e 2 diabetes mellitus with diabetic polyneuropathy , without long-term current use of insulin ([facility]) INJECT THREE MG UNDER THE SKIN ONCE WEEKLY 2 mL 3 5 Active Alcohol Swabs (SM Alcohol Prep) 70 % pads USE ONCE DAILY OR DIRECTED 100 each 11 5 Active Active Problems Problem Noted Date Diagnosed Date Dislocation of jaw 09/11/2023 Assessment & Plan (09/11/2023 4:06 PM EST): Continue with ibuprofen, will provide prednisone, and will refer for physical therapy Chronic right shoulder pain 10/19/2022 Assessment & Plan (10/19/2022 3:42 PM EDT): Will refer to ortho for evaluation, no recent traumatic event Screening for colon cancer 10/19/2022 Assessment & Plan (03/17/2024 2:52 PM EDT): Will refer to gi for colonoscopy Assessment & Plan (05/21/2023 7:44 PM EDT): Will order cologuard, patient refused colonoscopy risk s benefits were discussed Assessment & Plan (10/19/2022 3:40 PM EDT): Will place order for screening colonoscopy Bunion 08/01/2022 Perimenopause 10/24/2018 Tendinosis of right shoulder 08/14/2018 Disturbance in sleep behavior 05/14/2018 Vitamin D deficiency 01/14/2018 Diabetic polyneuropathy 01/10/2018 Type 2 diabetes mellitus 01/10/2018 Assessment & Plan (03/17/2024 2:50 PM EDT): On metformin and trulicity, new labs will be ordered for guidance of therapy, keep low carb and no sugar diet, follow up in 3 months Assessment & Plan (05/21/2023 7:44 PM EDT): Controlled, on metformin/glipizide and trulicity, will stop glipizide due to risk of hypoglycemia, continue daily monitoring, new labs will be ordered for guidance of therapy Assessment & Plan (10/19/2022 3:42 PM EDT): Has been running between 90-135, no episode of hypoglycemia reported, reinforced importance of diet and exercise as tolerated. Will place new lab order for guidance of therapy, will place optometry referal Degenerative joint disease of shoulder region DUB (dysfunctional uterine bleeding) 12/20/2017 Essential hypertension 12/20/2017 Assessment & Plan (03/17/2024 2:49 PM EDT): Controlled with current therapy, no chanes will be made, keep low sodium diet and exercise as tolerated Assessment & Plan (11/09/2023 3:41 PM EDT): Controlled, on losartan 100mg, reinforced importance of low sodium diet and exercise as tolerated, follow up in 4 mon ths Assessment & Plan (05/21/2023 7:42 PM EDT): Not at target, will increase losartan to 100mg, reinforced low sodium diet and exercise as tolerated. Will follow up in 1 month Assessment & Plan (10/19/2022 3:43 PM EDT): Controlled, reported today was 130/72, reinforced low sodium diet and exercise as tolerated Hyperlipidemia 12/20/2017 Assessment & Plan (03/17/2024 2:50 PM EDT): On atorvastatin, keep low cholesterol diet and exercise as tolerated, follow up in 3 months Injury of face 12/20/2017 Cervical spondylosis 12/20/2017 Lumbar spondylosis 12/20/2017 Recurrent major depression in partial remission 12/20/2017 Assessment & Plan (11/09/2023 3:44 PM EDT): Denied suicidal/homicidal ideas, but feels current dose is not enough, will increase sertraline to 150mg, Subacromial bursitis 12/20/2017 Encounters Date Type Department Care Team Description 10/30/2024 Patient Outreach [facility] [address] [place] [address] Vito Allen MD Care Coordination (Outreach) 10/27/2024 Telephone [facility] [address] [place] [address] Vito Allen MD 10/27/2024 Travel 10/21/[address] [facility] [address] [place] [address] Leandra Resendiz, CN No Show 10/17/2024 Population Health Risk Score Community [facility] () Department [address] [phone] Provider, Population Health Generic 10/10/2024 Travel 10/08/[address] [facility] [address] [place] [address] Vito Allen MD 10/02/2024 Patient Outreach [facility] [address] [place] [address] Vito Allen MD Care Coordination (Outreach) 09/15/2024 Patient Outreach [facility] [address] [place] [address] Vito Allen MD Care Coordination (Outreach) 09/03/2024 Telephone [facility] [address] [place] [address] Vito Allen MD chronic conditions tracking 09/03/2024 Patient Outreach [facility] [address] [place] [address] Vito Allen MD Care Coordination (Outreach) 08/28/2024 Refill [facility] [address] [place] [phone] Vito Allen MD Type 2 diabetes mellitus with diabetic polyneuropathy, without long-term current use of insulin ([facility]) 08/27/2024 Patient Outreach [facility] [address] [place] [address] Vito Allen MD Care Coordination (Outreach) 08/21/2024 Patient Outreach [facility] [address] [place] [address] Vito Allen MD Care Coordination (Outreach) from Last 3 Months Immunizations Name Administration Dates Next Due Influenza Injectable Quadriv alant Preservative Free IIV4 MDCK 07/03/2020 Influenza injectable quadriv alent IIV4 with preservative 07/15/2019,05/14/2018 Influenza injectable quadrivalent preservative f ree 05/17/2023 Pneumococcal Conjugate PCV 20 05/17/2023 Tdap 10/24/2018 Zoster, Recombinant 05/17/2023,09/11/2019 Social History Tobacco Use Types Packs/Day Years Used Date Smoking Tobacco: Never Passive Smoke Exposure: Never Smokeless Tobacco: Never Tobacco Cessation:Counseling Given: Not Answered Depression Answer Date Recorded Patient Health Questionnaire-9 Score 0 05/17/2023 Housing Stability Answer Date Recorded What is your housing situation today? I have alex henderson 05/21/[address] you li ve. Do you have problems with any of the following? None of the above 05/21/2023 Food Insecurity Answer Date Recorded Within the past 12 months, y ou worried that your food would run out before you got money to buy more: Never True 05/21/2023 Within the past 12 months,th e food you bought just didn't last and you didn't have enough money to get more: Never True Transportation Answer Date Recorded In the past 12 months, has l ack of transportation kept you from medical appts, meetings, work or from getting things needed for daily living? No 05/21/2023 Utilities Answer Date Recorded In the past 12 months, has t he electric, gas, oil or water company threatened to shut off services in your home? No 05/21/2023 Depression Answer Date Recorded Patient Health Questionnaire-2 Score 0 05/17/2023 Comments Unknown Sex and Gender Information Value Date Recorded Sex Assigned at Female 06/05/2022 10:18 AM EDT Legal Sex Female 10:18 AM EDT Gender Identity Female 06/05/2022 10:18 AM EDT Sexual Orientation Straight 06/05/2022 10 :18 AM EDT Last Filed Vital Signs Vital Sign Reading Time Taken Comments Blood Pressure 122/68 03/17/2024 2:37 PM EDT Pulse 88 05/17/2023 10:09 AM EDT Temperature 36.9 ??C (98.4 ??F) 05/17/2023 10:09 AM E DT Respiratory Rate 20 05/17/2023 10:09 AM EDT Oxygen Saturation 97% 08/29/2022 1:58 PM EST Inhaled Oxygen Concentration - - Weight 83.5 kg (184 lb) 05/17/2023 10:09 AM EDT Height 172.7 cm (5' 8 ) 05/17/2023 10:09 AM EDT Body Mass Index 27.98 05/17/2023 10:09 AM EDT Plan of Treatment Health Maintenance Due Date Last Done Comments CT Colonography 1968 Colonoscopy 1968 Colorectal Cancer Screening 1968 FIT DNA/Cologuard 1968 FIT 1968 FOBT 1968 Sigmoidoscopy 1968 Eye Exam 01/24/1978 Alcohol/Substance Use Screening 1980 Hepatitis B Vaccines (1 of 3 - 19+ 3-dose series) 01/24/1987 COVID-19 Vaccine (2023- season) 2024 09/28/2021, 08/17/2021 Influenza Vaccine (#1) 2024 , 07/03/2020, 07/15/2019, Additional history exists Depression Screening 05/17/2024 05/17/2023, 05/17/20 23 Diabetes: Foot Exam 05/17/2024 05/17/2023, 05/17/2023, 05/17/2023, Additional history exists SDOH Screening 05/17/2024 05/17/2023 Diabetes: Hemoglobin A1C 10/06/2024 024, 05/17/2023, 04/20/2022 Tobacco Screening 11/07/2024 11/08/2023 Mammogram 01/24/2025 01/24/2023, 08/01/2021, 03/21/2021, Additional history exists Diabetes: Urine Protein Screening 04/08/2025 04/08/2024, 04/20/2022 Lipid Panel 04/08/2025 04/08/2024, 04/20/2022 Cervical Cancer Screening 08/29/2027 HPV/Cotest 08/29/2027 08/29/2022 Pap Smear 08/29/2027 08/29/2022 DTaP/Tdap/Td Vaccines (2 - Td or Tdap) 10/24/2028 10/24/2018 RSV Patients and Patients Aged 60 years or older (1 - 1-dose 75+ series) 01/24/2043 HIV Screening Completed 04/20/2022 Hepatitis C Screening Completed 04/20/2022 Pneumococcal Vaccine: 50+ Years Completed 05/17/2023 Zoster Vaccines Completed 05/17/2023, 09/11/2019 HIB Vaccines Aged Out No longer eligi [...] patient's age to complete this topic Meningococcal Vaccine Aged Out No louis jose antonio eligible based on patient's age to complete this topic RSV under 20 months Aged Out No longe r eligible based on patient's age to complete this topic Rotavirus Vaccines Aged Out No longer eligible based on patient's age to complete this topic Procedures Procedure Name Priority Date/Time Associated Diagnosis Comments ALBUMIN, RANDOM URINE W/CREATININE Routine 04/08/2024 9:30 AM EDT Type 2 diabetes mellitus with diabetic polyneuropathy, without long-term current use of insulin ([facility]) HEMOGLOBIN A1C Routine 04/08/2024 9:23 AM EDT Type 2 diabetes mellitus with diabetic polyneuropathy, without long-term current use of insulin (CMS/HCC) LIPID PANEL, STANDARD Routine 04/08/2024 9:23 AM EDT Type 2 diabetes mellitus with diabetic polyneuropathy, without long-term current use of insulin (CMS/HCC) BI MAMMOGRAM SCREENING TOMOSYNTHESIS BILATERAL Routine 01/24/2023 12:50 PM EDT IMAGE-GUIDED PAP W/AGE BASED SCR,W/CT/NG/TRICH Routine 08/29/2022 2:14 PM EST Cervical cancer screening ZZZ HISTORICAL HEPATITIS C AB W/REFL TO HCV RNA, QN, PCR Routine 04/20/2022 8:33 AM EDT HIV 1/2 ANTIGEN/ANTIBODY, FOURTH GENERATION W/RFL Routine 04/20/2022 8:33 AM EDT from Last 3 Months or Most Recently Relevant to Health Maintenance Results * Albumin, Random Urine W/Creatinine (04/08/2024 9:30 AM EDT) Creatinine, Urine 120.32 mg/dL [facility] Microalbumin Urine 14.0 mg/L [facility] Microalbum Creatinine Ratio Ur 11.6 <30 ug/mg cr [facility] Comment:Albumin/Creatinine R atio Reference Ranges: Normal: < 30 ug/mg creatinine Microalbuminuria: 30 - 300 ug/mg creatinineClinical Albuminuria: > 300 ug/mg creatinine Urine (Urine, Random) 04/08/2024 9:30 AM EDT 04/08/2024 2:26 PM EDT us Vito De Leno MD LAB URINE ORDERABL ES Final Result [facility] [address] [place] [phone] * Hemoglobin A1c (04/08/2024 9:23 AM EDT) Hemoglobin A1c 5.6 <6.0 % [facility] Comment:Hemoglobin A1C Refer ence Range Adults: 4.8 - 6.0 % Non diabetic: < 6.0 % Goal: < 7.0 %Additional Action Suggested: > 8.0 %Note: Hemoglobin A1c results are invalid for patients with abnormal amounts of HbF. Blood transfusions may impact the HbA1c concentration in the patient sample. Estimated Average Glucose 114 mg/dL [facility] Comment:eAG = Estimated ave rage glucose which is %A1C expressed asaverage glucose, using the formula of the C3T-RldsdctTselgwt Glucose study (ADAG), Diabetes Care, Vol.31,#8,Mar. 2007 Blood Venous blood specimen / Unknown 04/08/2024 9:23 AM EDT 04/08/2024 2:40 PM EDT Vito De Leon MD LAB BLOOD ORDERABL ES Final Result [facility] [address] [place] [address] [phone] * (ABNORMAL) Lipid Panel, Standard (04/08/2024 9:23 AM EDT) Triglycerides 46 <150 mg/dL [facility] Comment:Desirable Triglyceri de: less than 150 mg/dLBorderline High Triglyceride 150-199 mg/dLHigh Triglyceride: 200-499 mg/dLVery High Triglyceride: greater than or equal to 5OO mg/dL Cholesterol 155 <200 mg/dL [facility] Comment:Desirable Cholestero l: less than 200 mg/dLBorderline High Cholesterol: 200-239 mg/dLHigh Cholesterol: greater than 239 mg/dL LDL Cholesterol Calculated 101(H) <100 mg/dL [facility] Comment:Desirable LDL: less than 100 mg/dLNear Optimal/Above Optimal LDL: 110- 129 mg/dLBorderline High LDL: 130-159 mg/dLHigh LDL: 160-189 mg/dLVery High LDL: greater than or equal to 190 mg/dL HDL Cholesterol 45 >40 mg/dL [facility] Comment:Desirable HDL: great er than 40 mg/dL Note: This HDL assay may give artificially low results in patients with liver disease. Blood Venous blood specimen / Unknown 04/08/2024 9:23 AM EDT 04/08/2024 2:40 PM EDT Vito De Leon MD LAB BLOOD ORDERABL ES Final Result [facility] [address] [place] [address] [phone] * BI Mammogram Screening Tomosynthesis Bilateral (01/24/2023 12:50 PM EDT) Anatomical Region Laterality Modality Breast Bilateral Mammography 01/24/2023 12:5 0 PM EDT Narrative 01/27/2023 2:30 PM EDT ? [facility] ? [address] ?[place] [id number] ? Mammography Report ? Signed ? Patient: Keyonna Keller ?MR#: M ?? [id number] ? : 1970 ?Acct:[id number] ? Age/Sex: 53 / F ?ADM Date: // ? Loc: HO.MAMMO ? Attending Dr: Vito De Leon MD ? Ordering Physician: Vito Allen MD ? Results: 0Incomplete: Needs Additional Imaging ?? Evaluation ? Date of Service: 01/24/23 ?Follow Up: Additional Imagi ?? ng ? Procedure(s): MM tomosynthesis screening BI ?? Accession Number(s): [id number] ? cc: Vito Allen MD ? EXAMINATION: ?? MM SCREENING DIGITAL BREAST TOMOSYNTHESIS, BILATERAL ? CLINICAL INFORMATION: ? Screening. Asymptomatic. ? The lifetime risk of breast cancer based on the Tyrer-Cuzick Model is ?? 11%. ? COMPARISON: ?? Mammography: 03/21/2021, 03/17/2020, 03/07/2019, 01/02/2018 ? TECHNIQUE: ?? Digital breast tomosynthesis is performed in both the craniocaudal and ?? mediolateral oblique views along with computer-aided detection (CAD). ?? Synthesized 2D images are generated from the tomosynthesis. ??Additional ?? exaggerated right CC view is provided. ? FINDINGS: ?? There are scattered areas of fibroglandular density (ACR BI-RADS breast ?? composition Category b). ? Left breast parenchymal pattern is similar to prior studies and there ?? is no developing density or interval mass or architectural abnormality. ?? Again, there is stable nodularity posterior upper outer left breast ?? similar to prior exams likely intramammary nodes. ? Neither breast shows abnormal calcifications. The axilla and skin ?? contours are unremarkable. ? There is parenchymal asymmetry mid central upper outer breast ?? questionably more conspicuous from prior exams. This may be related to ?? summation artifact or superimposed fibrocystic change. Patient will be ?? recalled for additional imaging. ? MM/MM tomosynthesis screening BI ?? IMPRESSION: ?? Right: ?? Parenchymal asymmetry central upper outer breast questionably more ?? conspicuous from prior exams, possibly summation artifact or ?? superimposed fibrocystic change. ? Left: ?? -No mammographic evidence of malignancy. ? ASSESSMENT: ? BI-RADS 0: Incomplete - Need Additional Imaging Evaluation ? RECOMMENDATION: ?? 1. Additional views right breast (spot CC, spot MLO). ?? 2. Targeted ultrasound if warranted after review of the additional ?? views. ?? 3. Radiology department staff will contact the patient for additional ?? imaging. ? This patient's information was entered into a reminder system with a ?? target due date for their next mammogram. ? Dictated By: ?Ken Zhu MD ? Signed By: ?<Electronically signed by Ken Zhu MD in OV> ?01/27/23 1428 ? DD/ 1250 ? TD/TT: ? Director Of Sales: MONTES ? Procedure Note Donsvetlana, Image - 02/01/2023 [facility] [address] [place] [address] Mammography Report Signed Patient: Edwin Keller#: M [id number] : 1970Acct:[id number] Age/Sex: 53 / FADM Date: 01/24/23 Loc: HO.MAMMO Attending Dr: Vito De Leon MD Ordering Physician: Vito Allen MD Results: 0Incomplete: Needs Additional Imaging Evaluation Date of Service: 01/24/23Follow Up: Additional Imagi ng Procedure(s): MM tomosynthesis screening BI Accession Number(s): [id number] cc: Vito Allen MD EXAMINATION: MM SCREENING DIGITAL BREAST TOMOSYNTHESIS, BILATERAL CLINICAL INFORMATION: Screening. Asymptomatic. The lifetime risk of breast cancer based on the Tyrer-Cuzick Model is 11%. COMPARISON: Mammography: 03/21/2021, 03/17/2020, 03/07/2019, 01/02/2018 TECHNIQUE: Digital breast tomosynthesis is performed in both the craniocaudal and mediolateral oblique views along with computer-aided detection (CAD). Synthesized 2D images are generated from the tomosynthesis. Additional exaggerated right CC view is provided. FINDINGS: There are scattered areas of fibroglandular density (ACR BI-RADS breast composition Category b). Left breast parenchymal pattern is similar to prior studies and there is no developing density or interval mass or architectural abnormality. Again, there is stable nodularity posterior upper outer left breast similar to prior exams likely intramammary nodes. Neither breast shows abnormal calcifications. The axilla and skin contours are unremarkable. There is parenchymal asymmetry mid central upper outer breast questionably more conspicuous from prior exams. This may be related to summation artifact or superimposed fibrocystic change. Patient will be recalled for additional imaging. MM/MM tomosynthesis screening BI IMPRESSION: Right: Parenchymal asymmetry central upper outer breast questionably more conspicuous from prior exams, possibly summation artifact or superimposed fibrocystic change. Left: -No mammographic evidence of malignancy. ASSESSMENT: BI-RADS 0: Incomplete - Need Additional Imaging Evaluation RECOMMENDATION: 1. Additional views right breast (spot CC, spot MLO). 2. Targeted ultrasound if warranted after review of the additional views. 3. Radiology department staff will contact the patient for additional imaging. This patient's information was entered into a reminder system with a target due date for their next mammogram. Dictated By: Ken Zhu MD Signed By: <Electronically signed by Ken Zhu MD in OV> 01/27/23 1428 DD/ 1250 TD/TT: Director Of Sales: MONTES [facility] External Provider IMG BI PROCEDURES Edited Result - Final * Image-Guided Pap with Age-Based Screening??with CT/NG,??Trichomonas (08/29/2022 2:14 PM EST) Comment [employer] Comment: This order for age-based cervical cancer and STI screening follows ACOG guidelines(PB 168, 140, ZCZ490). See individual assays for performing site location. Clinical Information: Abnormal bleeding Intrauterine contraceptive device [facility] LMP: NONE GIVEN [facility] Prev. PAP: YES [facility] Prev. BX: NONE GIVEN [facility] SOURCE: None given [facility] [place] [employer] Statement Of Adequacy: [facility] [place] [employer] Comment: Satisfactory for evaluation. Endocervical/transformation zone component present. Interpretation/Re sult: Negative for intraepithelial lesion or malignancy. [facility] [place] [employer] Infection Bacteria morphologically consistent with Actinomyces spp. [facility] [place] [employer] COMMENT: [facility] [employer] Comment: This case could not be evaluated with computer assisted technology. The slide was manually screened according to routine procedures. Measurement Advisor: [employer] [place] [employer] Comment: TEVIN, CT(ASCP) CT screening location: [address] ??[id number] Review Measurement Advisor: [facility] [place] [employer] Comment: ALS, CT(ASCP) CT screening location: [address] ??[address] (Always Message) Que st [employer] Comment: EXPLANATORY NOTE: The Pap is a screening test for cervical cancer. It is not a diagnostic test and is subject to false negative and false positive results. It is most reliable when a satisfactory sample, regularly obtained, is submitted with relevant clinical findings and history, and when the Pap result is evaluated along with historic and current clinical information. HPV nRNA E6/E7 Not Detected Not Detected [facility] Comment: Methodology: Policy Services Representative-Mediated Amplification This assay detects E6/E7 viral messenger RNA (mRNA) from 14 high-risk HPV types (16,18,31,33,35,39,45,51,52,56,58,59,66,68). Cervical sources are required for HPV testing. If a vaginal source from a patient who has had a total hysterectomy with removal of cervix was submitted, please contact the testing laboratory for alternative testing options. For additional information, please refer to http://education.Vhall/faq/INU968r1 (This link if provided for information/ educational purposes only.) Chlamydia trachomatis RNA, TMA, Urogenital NOT DETECTED NOT DETECTED [facility] Neisseria gonorrhoeae RNA, TMA, Urogenital NOT DETECTED NOT DETECTED [facility] (Always Message) Que st [employer] Comment: The analytical performance characteristics of this assay, when used to test SurePath(TM) specimens have been determined by [facility]. The modifications have not been cleared or approved by the FDA. This assay has been validated pursuant to the CLIA regulations and is used for clinical purposes. For additional information, please refer to https://[employer]/faq/XZQ813 (This link is being provided for information/ educational purposes only.) Trichomonas vaginalis, QL, TMA, PAP Vial NOT DETECTED NOT DETECTED [facility] Comment: The analytical performance characteristics of this assay have been determined by [facility]. The modifications have not been cleared or approved by the FDA. This assay has been validated pursuant to the CLIA regulations and is used for clinical purposes. For additional information, please refer to http://[employer]/ faq/Trichomonastma (This link is being provided for information/ educational purposes only.) 08/29/2022 2:14 PM EST 08/30/2022 11:00 AM EST Leandra Resendiz [facility] ORDERABLES F inal Result [address], [place] [address] [employer] [place] [employer] [address] [facility], ([address]) [place] [address] * HEPATITIS C AB W/REFL TO HCV RNA, QN, PCR (04/20/2022 8:33 AM EDT) HEPATITIS C ANTIBODY NON-REACT [facility] NON-REACT [facility] INDEX 0.14 <1.00 [facility] Comment: ?? HCV antibody was non-reactive. There is no laboratory ?? evidence of HCV infection. ?? In most cases, no further action is required. However, if recent HCV exposure is suspected, a test for HCV RNA (test code 23474) is suggested. ?? For additional information please refer to http://[employer]/faq/FTP37h2 (This link is being provided for informational/ educational purposes only.) ?? 04/20/2022 8:33 AM EDT Vito De Leon MD HISTORICAL/NON ORD ERABLE LABS Final Result Performing Organization Address [facility] de Phone Number [facility] [address] * HIV 1/2 ANTIGEN/ANTIBODY,FOURTH GENERATION W/RFL (04/20/2022 8:33 AM EDT) HIV-1/2 ANTIGEN AND ANTIBODIES, 4TH GENERATION W/ REFLEX NON-REACT ALVIN NON-REACT ALVIN [facility] Comment: HIV-1 antigen and HIV-1/HIV-2 antibodies were not detected. There is no laboratory evidence of HIV infection. ?? PLEASE NOTE: This information has been disclosed to you from records whose confidentiality may be protected by state law. ??If your state requires such protection, then the state law prohibits you from making any further disclosure of the information without the specific written consent of the person to whom it pertains, or as otherwise permitted by law. A general authorization for the release of medical or other information is NOT sufficient for this purpose. ? For additional information please refer to http://education.[employer]/faq/EIM043 (This link is being provided for informational/ educational purposes only.) ? The performance of this assay has not been clinically validated in patients less than 2 years old. ?? 04/20/2022 8:33 AM EDT Vito De Leon MD LAB BLOOD ORDERABL ES Final Result Performing Organization Address [facility] de Phone Number [facility] [address] from Last 3 Months or Most Recently Relevant to Health Maintenance Insurance [facility] C3 Care Teams Bank Guard Relationship Specialty Start Date End Date Vito Allen MD [address] [place] [id number] PCP - General Internal Medicine 07/10/19
== END 2024-11-19 14:59 | disposition home or self-care (01) ==
LOC: HO.MAMMO 14:58
PROVIDERS: PCP Internal Medicine; Visit Provider Internal Medicine
DX: Z12.31 Encounter for screening mammogram for malignant neoplasm of breast (principal)
CPT/HCPCS: 77063; 77067

== ENCOUNTER 2024-12-19 09:00 | Outpatient (AMB) | payer MEDICAID, SELFPAY ==
[2024-12-19 09:03] VITALS: BMI 26.3
--- NOTE | 2024-12-19 09:03 | MHC.OFFVIS ---
Vital Signs 12/19/24 09:03 Height 5 ft 9 in Weight 178 lb BMI 26.3 Intake Visit Reasons: OV - Discuss Left CTR Intake Note: Keyonna is a 54 year old right hand dominant female who presents today for a follow up of her Left Carpal Tunnel. She was previously seen with Dr. Dunlap who administered an injection on 05/03/2023 which patient reports was not helpful. She would like to discuss having a Left Carpal Tunnel Release IMPRESSION: 1. This is an abnormal study. 2. There is electrodiagnostic evidence for bilateral borderline/very mild median neuropathy at the wrists, consistent with carpal tunnel syndrome. 3. There is no electrodiagnostic evidence for ulnar neuropathy, brachial plexopathy, or cervical radiculopathy. 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 She experiences significant numbness and tingling in her wrists and hands, most notably affecting the left side. These symptoms are reportedly severe and interfere with her daily life. Patient states that her symptoms have remained consistent since previous evaluation. She expresses a significant level of pain in her shoulder; however, it?s clarified this surgical consultation is primarily for the carpal tunnel release to address the wrist and hand issues specifically. In her medical history, she has diabetes mellitus, with a recent HbA1c level of 6, reflecting good glycemic control. She denies usage of any anticoagulants. This background helps inform the surgical approach and expected recovery process. Review of Systems - Musculoskeletal: Reports numbness and tingling in wrists and hands; left side more affected. Denies shoulder pain related to carpal tunnel. - Endocrine: Reports diabetes, controlled with last A1c at 6. - Hematologic: Denies use of blood thinners. Systems reviewed and are negative except as per HPI and below Physical Exam Neuro: Normal sensation of the tips of all digits of bilateral hands in the office today No thenar or intrinsic wasting. Good APB muscle firing and good finger cross. Vascular: Capillary refill brisk. ROM: Patient can make a fist and extend all their digits. Skin: No lacerations or abrasions noted. General: No ecchymosis. No erythema or evidence of infection. Results Procedure - Carpal Tunnel Release: Informed consent was obtained from the patient. The procedure involves decompressing the carpal tunnel to alleviate the pressure on the median nerve. The patient was informed she will remain awake during the procedure with local anesthetic administered to the surgical site. Plan The treatment plan includes proceeding with left carpal tunnel release to improve the patient's symptoms of numbness and tingling in the left hand. The procedure is planned to occur with local anesthesia, reducing the risk given her controlled diabetic status. Post-operative care involves maintenance of a clean, dry dressing for five days and limitation of heavy lifting for four weeks to ensure optimal recovery. A follow-up is scheduled for two weeks post-operation to evaluate healing and discuss further treatment for the right hand if necessary. Adjustments for her work duties, avoiding food handling, are recommended to prevent complications during recovery. I educated the patient about the condition. I discussed both operative and nonoperative treatment options. The patient would like to proceed with surgery. The risks and benefits of operative treatment were discussed with the patient and the patient wishes to proceed with surgery. These risks include, but are not limited to, risk of damage to blood vessels, nerves, tendons, infection, recurrence, incomplete relief of preoperative symptoms, persistent pain, possible need for further surgery, and the risks associated with regional blocks and/or anesthesia. Plan is to take the patient to the operating room at some point in the next few weeks for the following procedures: 1. Left carpal tunnel release under local anesthesia All of the preoperative paperwork including the consent was discussed today. All of the patient's questions were answered in the clinic today. The patient understands that they will be in contact with our ophthalmology surgical technician to discuss scheduling their procedure. Patient reports diabetes, last A1c 6 Denies blood thinners, asthma, heart issues, lung issues, kidney issues, or current smoking. Patient was informed and verbally consented to the use of an ambient scribe for clinic note documentation during this visit. Discussion Notes During the consultation, I reviewed the surgical intervention for Carpal Tunnel Syndrome with the patient, outlining the benefits of alleviating her significant hand symptoms. I explained the procedure's relative safety and its focus on mitigating the symptoms affecting wrist and hand function rather than unrelated shoulder pain. The potential risks, although low, such as nerve or vessel injury, infection, and non-resolution of symptoms, were clearly communicated. We emphasized the importance of adhering to post-operative care instructions including maintaining dryness of the dressing, limiting hand usage in the initial recovery phase, and planning a follow-up for suture removal and evaluation of recovery. We discussed considerations for her work arrangements, allowing her to refrain from handling food due to her position, helping facilitate an optimal healing process. Patient Instructions - Avoid using the affected hand for heavy lifting for four weeks. - Keep the surgical dressing clean and dry for the first five days. - Use a plastic cover to protect the dressing while washing. - Attend the follow-up appointment two weeks post-surgery for incision evaluation and suture removal. - Monitor for any signs of infection or complications and contact if concerns arise. - Follow [id number] advice, avoiding food handling until healing is adequate. Coding Level of Care Code Est Pt Level 4 (13286) Diagnoses Carpal tunnel syndrome on both sides G56.03
--- OUTSIDE RECORDS SUMMARY | 2024-12-19 09:14 | XMS_ITS | Encounter Summary ---
Author Organization [employer] Address [address] [facility] [address] [place] [address] Care Team Providers Care Registered Dental Assistant Name Role Phone Vito Allen MD Primary Care Prov ider Encounter Details Date Type Department Care Team (Latest Contact Info) Description 06/04/[address] [facility] CONVERSIONS Dental, Provider, DDS Social History Tobacco [...] on filedocumented in this encounter Care Teams Registered Dental Assistant Relationship Specialty Start Date End Date Vito Allen MD [address] [place] [address] PCP - General Internal Medicine 07/10/19 documented as of this encounter
--- OUTSIDE RECORDS SUMMARY | 2024-12-19 09:14 | XMS_ITS | Clinical Summary ---
Author Organization [facility] it Address [address] [place] [address] Care Team Providers Care Assistant Teaching Professor Name Role Phone Unavailable Primary Care Provider [...]
--- OUTSIDE RECORDS SUMMARY | 2024-12-19 09:14 | XMS_ITS | Clinical Summary ---
Author Organization [employer] Address [address] [facility] 7[address] [place] [address] Care Team Providers Care Engineering Technician Name Role Phone Vito Allen MD Primary [...] , without long-term current use of insulin ([facility]) INJECT THREE MG UNDER THE SKIN ONCE [...] Encounters Date Type Department Care Team Description 12/02/2024 Patient Outreach [facility] [address] [place] [phone] Vito Allen MD Care Coordination (Outreach) 11/19/2024 Orders Only [facility] [address] [place] [address] Vito Allen MD 10/30/2024 Patient Outreach [facility] [address] [place] [address] Vito Allen MD Care Coordination (Outreach) 10/27/2024 Telephone [facility] [address] [place] [address] Vito Allen MD 10/27/2024 Travel 10/21/2024 Telephone [facility] [address] [place] [address] Leandra Resendiz, GUSTAVO No Show 10/17/2024 Population Health Risk Score [facility] Department [address] [phone] Provider, Population Health Generic 10/10/2024 Travel 10/08/2024 Refill [facility] [address] [place] [address] Vito Allen MD 10/02/2024 Patient Outreach [facility] [address] [place] [address] Vito Allen MD Care Coordination (Outreach) from Last 3 Months Immunizations Immunization Administration Dates Next Due Influenza Injectable Quadriv [...] - 19+ 3-dose series) 01/24/1987 COVID-19 Vaccine ( season) 2024 09/28/2021, 08/17/2021 Influenza Vaccine (#1) 2024 , 07/03/2020, 07/15/2019, Additional history exists Depression Screening 05/17/2024 05/17/2023, 05/17/20 23 Diabetes: Foot Exam 05/17/2024 05/17/2023, 05/17/2023, 05/17/2023, Additional history exists SDOH Screening 05/17/2024 05/17/2023 Diabetes: Hemoglobin A1C 10/06/2024 024, 05/17/2023, 04/20/2022 Tobacco Screening 11/07/2024 11/08/2023 Diabetes: Urine Protein Screening 04/08/2025 04/08/2024, 04/20/2022 Lipid Panel 04/08/2025 04/08/2024, 04/20/2022 Mammogram 11/19/2026 11/19/2024, 01/05, 03/21/2021, Additional history exists Cervical Cancer Screening 08/29/2027 HPV/Cotest 08/29/2027 08/29/2022 [...] Procedure Name Priority Date/Time Associated Diagnosis Comments BI MAMMOGRAM SCREENING TOMOSYNTHESIS BILATERAL Routine 11/19/2024 3:10 PM EDT ALBUMIN, RANDOM URINE W/CREATININE Routine 04/08/2024 9:30 AM EDT Type 2 diabetes mellitus with diabetic polyneuropathy, without long-term current use of insulin (CMS/HCC) HEMOGLOBIN A1C Routine 04/08/2024 9:23 AM EDT Type 2 diabetes mellitus with diabetic polyneuropathy, without long-term current use of insulin (CMS/HCC) LIPID PANEL, STANDARD Routine 04/08/2024 9:23 AM EDT Type 2 diabetes mellitus with diabetic polyneuropathy, without long-term current use of insulin (CMS/HCC) IMAGE-GUIDED PAP W/AGE BASED SCR,W/CT/NG/TRICH Routine 08/29/2022 2:14 PM EST Cervical cancer screening [facility] HISTORICAL HEPATITIS C AB W/REFL TO HCV RNA, QN, PCR Routine 04/20/2022 8:33 AM EDT HIV 1/2 ANTIGEN/ANTIBODY, FOURTH GENERATION W/RFL Routine 04/20/2022 8:33 AM EDT from Last 3 Months or Most Recently Relevant to Health Maintenance Results * BI Mammogram Screening Tomosynthesis Bilateral (11/19/2024 3:10 PM EDT) Anatomical Region Laterality Modality Breast Bilateral Mammography 11/19/2024 3:10 PM EDT Narrative 11/28/2024 2:09 PM EDT ? [facility] ? [address] ?[place] [id number] ?[phone] ? Mammography Report ? Signed ? Patient: Keyonna Keller ?MR#: [id number] ?? [id number] ? : 1970 ?Acct:[id number] ? Age/Sex: 54 / F ?ADM Date: /16/25 ? Loc: HO.MAMMO ? Attending Dr: Vito De Leon MD ? Ordering Physician: Vito Allen MD ? Results: 0Incomplete: Needs Additional Imaging ?? Evaluation ? Date of Service: 04/16/25 ?Follow Up: Additional Imagi ?? ng ? Procedure(s): MM tomosynthesis screening BI ?? Accession Number(s): [id number] ? cc: Vito Aleln MD ? EXAMINATION: ?? MM SCREENING DIGITAL BREAST TOMOSYNTHESIS, BILATERAL ? CLINICAL INFORMATION: ? Screening. Asymptomatic. ? COMPARISON: ?? Mammography: Comparison is made with available priors ? TECHNIQUE: ?? Digital breast mammography with tomosynthesis is performed in both the ?? craniocaudal and mediolateral oblique views along with computer-aided ?? detection (CAD). ? FINDINGS: ?? There are scattered areas of fibroglandular density (ACR BI-RADS breast ?? composition Category b). ?? Left: ?? There are no significant masses, abnormal calcifications, or other ?? abnormalities. ? Right: ?? Focal asymmetry lateral breast posterior depth on CC view with ?? associated distortion. Moderate be seen central to inferior breast on ?? MLO view but better seen on CC view. ?? No suspicious calcifications or other abnormal findings. ? MM/MM tomosynthesis screening BI ?? IMPRESSION: ?? Additional imaging is recommended ? ASSESSMENT: ? BI-RADS BI-RADS 0 - Incomplete: Needs additional Imaging. ? RECOMMENDATION: ?? 1. Additional views of the right breast. ?? 2. Targeted ultrasound if warranted after review of the additional ?? views. ?? 3. Radiology department staff will contact the patient for additional ?? imaging. ? Additional Imaging required ? This examination should not preclude the clinical evaluation of a ?? suspicious palpable abnormality. ? This patient's information was entered into a reminder system with a ?? target due date for their next mammogram. ? Electronically signed by: ??Mary Painting DO ??11/28/2024 02:06 PM EDT ?? RP ? Dictated By: ?Mary Painting DO ? Signed By: ?<Electronically signed by Mary Painting, DO in OV> ? 11/28/24 1406 ? DD/ 1510 ? TD/TT: 11/19/24 1520 ? Chemistry Quality Control Analyst: ? Procedure Note Donotuseinterpreter, Image - 11/28/2024 [facility] [address] [place] [address] Mammography Report Signed Patient: Edwin Keller#: Juan [id number] : 1970Acct:[id number] Age/Sex: 54 / FADM Date: 11/19/24 Loc: HO.MAMMO Attending Dr: Vito De Leon MD Ordering Physician: Vito Allen MD Results: 0Incomplete: Needs Additional Imaging Evaluation Date of Service: 11/19/24Follow Up: Additional Imagi ng Procedure(s): MM tomosynthesis screening BI Accession Number(s): [id number] cc: Vito Allen MD EXAMINATION: MM SCREENING DIGITAL BREAST TOMOSYNTHESIS, BILATERAL CLINICAL INFORMATION: Screening. Asymptomatic. COMPARISON: Mammography: Comparison is made with available priors TECHNIQUE: Digital breast mammography with tomosynthesis is performed in both the craniocaudal and mediolateral oblique views along with computer-aided detection (CAD). FINDINGS: There are scattered areas of fibroglandular density (ACR BI-RADS breast composition Category b). Left: There are no significant masses, abnormal calcifications, or other abnormalities. Right: Focal asymmetry lateral breast posterior depth on CC view with associated distortion. Moderate be seen central to inferior breast on MLO view but better seen on CC view. No suspicious calcifications or other abnormal findings. MM/MM tomosynthesis screening BI IMPRESSION: Additional imaging is recommended ASSESSMENT: BI-RADS BI-RADS 0 - Incomplete: Needs additional Imaging. RECOMMENDATION: 1. Additional views of the right breast. 2. Targeted ultrasound if warranted after review of the additional views. 3. Radiology department staff will contact the patient for additional imaging. Additional Imaging required This examination should not preclude the clinical evaluation of a suspicious palpable abnormality. This patient's information was entered into a reminder system with a target due date for their next mammogram. Electronically signed by: Mary Painting DO 11/28/2024 02:06 PM EDT RP Dictated By: Mary Painting DO Signed By: <Electronically signed by Mary Painting DO in OV> 11/28/24 1406 DD/ 1510 TD/TT: 11/19/24 1520 Chemistry Quality Control Analyst: us Vito De Leon MD IMG BI PROCEDURES Edited Result - Final * Albumin, Random Urine W/Creatinine (04/08/2024 9:30 AM EDT) Creatinine, Urine 120.32 mg/dL [facility] Microalbumin Urine 14.0 mg/L [facility] Microalbum Creatinine Ratio Ur 11.6 <30 ug/mg cr [facility] Comment:Albumin/Creatinine R atio Reference Ranges: Normal: < 30 ug/mg creatinine Microalbuminuria: 30 - 300 ug/mg creatinineClinical Albuminuria: > 300 ug/mg creatinine Urine (Urine, Random) 04/08/2024 9:30 AM EDT 04/08/2024 2:26 PM EDT us Vito De Leon MD LAB URINE ORDERABL ES Final Result [facility] [address] [place] [phone] * Hemoglobin A1c (04/08/2024 9:23 AM EDT) Hemoglobin A1c 5.6 <6.0 % [facility] Comment:Hemoglobin A1C Refer ence Range Adults: 4.8 - 6.0 % Non diabetic: < 6.0 % Goal: < 7.0 %Additional Action Suggested: > 8.0 %Note: Hemoglobin A1c results are invalid for patients with abnormal amounts of HbF. Blood transfusions may impact the HbA1c concentration in the patient sample. Estimated Average Glucose 114 mg/dL [facility] Comment:eAG = Estimated ave rage glucose which is %A1C expressed asaverage glucose, using the formula of the O6D-VdaucrmKskxolc Glucose study (ADAG), Diabetes Care, Vol.31,#8,2007 Blood Venous blood specimen / Unknown 04/08/2024 9:23 AM EDT 04/08/2024 2:40 PM EDT Vito De Leon MD LAB BLOOD ORDERABL ES Final Result Performing Organization Address [facility] Co de Phone Number [facility] [address] [place] [address] [phone] * (ABNORMAL) Lipid Panel, Standard (04/08/2024 9:23 AM EDT) Triglycerides 46 <150 mg/dL [facility] Comment:Desirable Triglyceri de: less than 150 mg/dLBorderline High Triglyceride 150-199 mg/dLHigh Triglyceride: 200-499 mg/dLVery High Triglyceride: greater than or equal to 5OO mg/dL Cholesterol 155 <200 mg/dL [facility] Comment:Desirable Cholestero l: less than 200 mg/dLBorderline High Cholesterol: 200-239 mg/dLHigh Cholesterol: greater than 239 mg/dL LDL Cholesterol Calculated 101(H) <100 mg/dL [facility] Comment:Desirable LDL: less than 100 mg/dLNear Optimal/Above Optimal LDL: 110- 129 mg/dLBorderline High LDL: 130-159 mg/dLHigh LDL: 160-189 mg/dLVery High LDL: greater than or equal to 190 mg/dL HDL Cholesterol 45 >40 mg/dL [facility] Comment:Desirable HDL: great er than 40 mg/dL Note: This HDL assay may give artificially low results in patients with liver disease. Blood Venous blood specimen / Unknown 04/08/2024 9:23 AM EDT 04/08/2024 2:40 PM EDT Vito De Leon MD LAB BLOOD ORDERABL ES Final Result Performing Organization Address [facility]/ZIP Co de Phone Number [facility] [address] [place] [address] [phone] * Image-Guided Pap with Age-Based Screening??with CT/NG,??Trichomonas (08/29/2022 2:14 PM EST) Comment [facility] Comment: This order for age-based cervical cancer and STI screening follows ACOG guidelines(PB 168, 140, XXK520). See individual assays for performing site location. Clinical Information: Abnormal bleeding Intrauterine contraceptive device [facility] LMP: NONE GIVEN [facility] Prev. PAP: YES [employer] Prev. BX: NONE GIVEN [facility] SOURCE: None given [facility] Statement Of Adequacy: [facility] Comment: Satisfactory for evaluation. Endocervical/transformation zone component present. Interpretation/Re sult: Negative for intraepithelial lesion or malignancy. [facility] Infection Bacteria morphologically consistent with Actinomyces spp. [facility] COMMENT: [employer] [place] [employer] Comment: This case could not be evaluated with computer assisted technology. The slide was manually screened according to routine procedures. Chief Investigator: Qu [employer] Comment: TEVIN, CT(ASCP) CT screening location: [address] ??[phone] Review Chief Investigator: [facility] Comment: ALS, CT(ASCP) CT screening location: [address] ??[address] (Always Message) Que [facility] [employer] Comment: EXPLANATORY NOTE: The Pap is a [...] HPV nRNA E6/E7 Not Detected Not Detected [facility] Comment: Methodology: Manager Configuration-Mediated Amplification This assay detects E6/E7 viral messenger RNA (mRNA) from 14 high-risk HPV types (16,18,31,33,35,39,45,51,52,56,58,59,66,68). Cervical sources are required for HPV testing. If a vaginal source from a patient who has had a total hysterectomy with removal of cervix was submitted, please contact the testing laboratory for alternative testing options. For additional information, please refer to http://[employer]elligent Fingerprinting/faq/WPR362e7 (This link if provided for information/ educational purposes only.) Chlamydia trachomatis RNA, TMA, Urogenital NOT DETECTED NOT DETECTED [facility] Neisseria gonorrhoeae RNA, TMA, Urogenital NOT DETECTED NOT DETECTED [facility] (Always Message) [facility] [employer] Comment: The analytical performance characteristics of this assay, when used to test SurePath(TM) specimens have been determined by [employer]. The modifications have not been cleared or approved by the FDA. This assay has been validated pursuant to the CLIA regulations and is used for clinical purposes. For additional information, please refer to https://[employer]/faq/LEI196 (This link is being provided for information/ educational purposes only.) Trichomonas vaginalis, QL, TMA, PAP Vial NOT DETECTED NOT DETECTED [facility] Comment: The analytical performance characteristics of this assay have been determined by [employer]. The modifications have not been cleared or approved by the FDA. This assay has been validated pursuant to the CLIA regulations and is used for clinical purposes. For additional information, please refer to http://[employer]/ faq/Trichomonastma (This link is being provided for information/ educational purposes only.) 08/29/2022 2:14 PM EST 08/30/2022 11:00 AM EST us Leandra CHEN LAB CYTOLOGY ORDERABLES F inal Result [facility] [address] [facility] [employer], [place] [address] [facility] [address] [facility], ([address]) [place] [address] * HEPATITIS C AB W/REFL TO HCV RNA, QN, PCR (04/20/2022 8:33 AM EDT) HEPATITIS C ANTIBODY NON-REACT ALVIN NON-REACT ALVIN [facility] INDEX 0.14 <1.00 [facility] Comment: ?? HCV antibody was non-reactive. There is no laboratory ?? evidence of HCV infection. ?? In most cases, no further action is required. However, if recent HCV exposure is suspected, a test for HCV RNA (test code 19489) is suggested. ?? For additional information please refer to http://UCWeb.Intelligent Fingerprinting/faq/TIW68w1 (This link is being provided for informational/ educational purposes only.) ?? 04/20/2022 8:33 AM EDT Vito De Leon MD HISTORICAL/NON ORD ERABLE LABS Final Result [facility] [address] [place] [address], * HIV 1/2 ANTIGEN/ANTIBODY,FOURTH GENERATION W/RFL (04/20/2022 8:33 AM EDT) HIV-1/2 ANTIGEN AND ANTIBODIES, 4TH GENERATION W/ REFLEX NON-REACT ALVIN NON-REACT ALVIN [facility] Comment: HIV-1 antigen and HIV-1/HIV-2 [...] ? For additional information please refer to http://UCWeb.Intelligent Fingerprinting/faq/ZKH891 (This link is being provided for informational/ educational purposes only.) ? The performance of this assay has not been clinically validated in patients less than 2 years old. ?? 04/20/2022 8:33 AM EDT Vito De eLon MD LAB BLOOD ORDERABL ES Final Result [facility] [address] from Last 3 Months or Most Recently Relevant to Health Maintenance [place] [address] [place] [address] C3 Care Teams Engineering Technician Relationship Specialty Start Date End Date Vito Allen MD [address] [place] [phone] PCP - General Internal Medicine 07/10/19
== END 2024-12-19 09:42 | disposition home or self-care (01) ==
LOC: HO.HOS 09:01
PROVIDERS: PCP Internal Medicine
DX: G56.03 Carpal tunnel syndrome, bilateral upper limbs (principal)
CPT/HCPCS: 99214

== ENCOUNTER → 2024-12-19 09:00 | Outpatient (BNVA) | payer MEDICAID, SELFPAY | PROVIDERS: PCP Internal Medicine | DX: G56.03 Carpal tunnel syndrome, bilateral upper limbs (principal); M25.512 Pain in left shoulder | CPT/HCPCS: 99212 ==

== ENCOUNTER 2024-12-24 10:02 | Day surgery (SDC) | payer MEDICAID, SELFPAY ==
--- OUTSIDE RECORDS SUMMARY | 2024-12-22 14:27 | XMS_ITS | Encounter Summary ---
Author Organization [employer] Address [address] [facility] [address] [place] [address] Care Team Providers Care Cake Batter Mixer Name Role Phone Vito Allen MD Primary Care Prov ider Encounter Details Date Type Department Care Team (Latest Contact Info) Description 06/04/2019 Abstract [facility] CONVERSIONS Dental, Provider, DDS Social History Tobacco [...] on filedocumented in this encounter Care Teams Cake Batter Mixer Relationship Specialty Start Date End Date Vito Allen MD [address] [place] [address] PCP - General Internal Medicine 07/10/19 documented as of this encounter
--- OUTSIDE RECORDS SUMMARY | 2024-12-22 14:27 | XMS_ITS | Clinical Summary ---
Author Organization [employer] Address [address] [facility] [address] [place] [address] Care Team Providers Care Print Color Operator Name Role Phone Vito Allen MD [...] , without long-term current use of insulin ([facility]) INJECT THREE MG UNDER THE SKIN ONCE [...] Department Care Team Description 12/02/2024 Patient Outreach [facility] [address] [place] [phone] Vito Allen MD Care Coordination (Outreach) 11/19/2024 Orders Only [facility] [address] [place] [address] Vito Allen MD 10/30/2024 Patient Outreach [facility] [address] [place] [address] Vito Aleln MD Care Coordination (Outreach) 10/27/2024 Telephone [facility] [address] [place] [address] Vito Allen MD 10/27/2024 Travel 10/21/2024 Telephone [facility] [address] [place] [address] Leandra Resendiz, GUSTAVO No Show 10/17/2024 Population Health [facility] Department [address] [phone] Provider, Population Health Generic 10/10/2024 Travel 10/08/2024 Refill [facility] [address] [place] [address] Vito Allen MD 10/02/2024 Patient Outreach [facility] [address] [place] [address] Vito Allen MD Care Coordination (Outreach) from [...] EDT Narrative 11/28/2024 2:09 PM EDT ? [facility] [place] ? [address] ?[place] [address] ?[phone] ? Mammography Report ? Signed ? Patient: Keyonna Keller ?MR#: [id number] ?? [id number] ? : 1970 ?Acct:[id number] ? Age/Sex: 54 / F ?ADM Date: /16/25 ? Loc: HO.MAMMO ? Attending Dr: Vito De Leon MD ? Ordering Physician: Vito Allen MD ? Results: 0Incomplete: Needs Additional Imaging ?? Evaluation ? Date of Service: 04/16/25 ?Follow Up: Additional Imagi ?? ng ? Procedure(s): MM tomosynthesis screening BI ?? Accession Number(s): [id number] ? cc: Vito Allen MD ? EXAMINATION: [...] DD/ 1510 ? TD/TT: 11/19/24 1520 ? Raker Buffing Wheel: ? Procedure Note Donotuseinterpreter, Image - 11/28/2024 [facility] [address] [place] [address] Mammography Report Signed Patient: Edwin Keller#: Juan [id number] : 1970Acct:[id number] Age/Sex: 54 / FADM Date: 11/19/24 Loc: HO.MAMMO Attending Dr: Vito De Leon MD Ordering Physician: Vito Allen MD Results: 0Incomplete: Needs Additional Imaging Evaluation Date of Service: 11/19/24Follow Up: Additional Imagi ng Procedure(s): MM tomosynthesis screening BI Accession Number(s): [id number] cc: Vito Allen MD EXAMINATION: MM SCREENING [...] 11/28/24 1406 DD/ 1510 TD/TT: 11/19/24 1520 Raker Buffing Wheel: us Vito De Leon MD IMG BI PROCEDURES Edited Result - Final * Albumin, Random Urine W/Creatinine (04/08/2024 9:30 AM EDT) Creatinine, Urine 120.32 mg/dL [facility] Microalbumin Urine 14.0 mg/L [facility] Microalbum Creatinine Ratio Ur 11.6 <30 ug/mg cr [facility] Comment:Albumin/Creatinine R atio Reference Ranges: Normal: < 30 ug/mg creatinine Microalbuminuria: 30 - 300 ug/mg creatinineClinical Albuminuria: > 300 ug/mg creatinine Urine (Urine, Random) 04/08/2024 9:30 AM EDT 04/08/2024 2:26 PM EDT us Vito De Leon MD LAB URINE ORDERABL ES Final Result [facility] [address] [place] [phone] * Hemoglobin A1c (04/08/2024 9:23 AM EDT) Hemoglobin A1c 5.6 <6.0 % [facility] Comment:Hemoglobin A1C Refer ence Range Adults: 4.8 - 6.0 % Non diabetic: < 6.0 % Goal: < 7.0 %Additional Action Suggested: > 8.0 %Note: Hemoglobin A1c results are invalid for patients with abnormal amounts of HbF. Blood transfusions may impact the HbA1c concentration in the patient sample. Estimated Average Glucose 114 mg/dL [facility] Comment:eAG = Estimated ave rage glucose which is %A1C expressed asaverage glucose, using the formula of the V9M-ImvnqkwYdeodhr Glucose study (ADAG), Diabetes Care, Vol.31,#8,2007 Blood Venous blood specimen / Unknown 04/08/2024 9:23 AM EDT 04/08/2024 2:40 PM EDT Vito De Leon MD LAB BLOOD ORDERABL ES Final Result Performing Organization Address [facility] Co de Phone Number [facility] [address] [place] [address] [phone] * (ABNORMAL) Lipid Panel, Standard (04/08/2024 9:23 AM EDT) Triglycerides 46 <150 mg/dL [facility] Comment:Desirable Triglyceri de: less than 150 mg/dLBorderline High Triglyceride 150-199 mg/dLHigh Triglyceride: 200-499 mg/dLVery High Triglyceride: greater than or equal to 5OO mg/dL Cholesterol 155 <200 mg/dL [facility] Comment:Desirable Cholestero l: less than 200 mg/dLBorderline High Cholesterol: 200-239 mg/dLHigh Cholesterol: greater than 239 mg/dL LDL Cholesterol Calculated 101(H) <100 mg/dL [facility] Comment:Desirable LDL: less than 100 mg/dLNear Optimal/Above Optimal LDL: 110- 129 mg/dLBorderline High LDL: 130-159 mg/dLHigh LDL: 160-189 mg/dLVery High LDL: greater than or equal to 190 mg/dL HDL Cholesterol 45 >40 mg/dL [facility] Comment:Desirable HDL: great er than 40 mg/dL Note: This HDL assay may give artificially low results in patients with liver disease. Blood Venous blood specimen / Unknown 04/08/2024 9:23 AM EDT 04/08/2024 2:40 PM EDT Vito De Leon MD LAB BLOOD ORDERABL ES Final Result Performing Organization Address [facility]/ZIP Co de Phone Number [facility] [address] [place] [address] [phone] * Image-Guided Pap with Age-Based Screening??with CT/NG,??Trichomonas (08/29/2022 2:14 PM EST) Comment Fly6 Comment: This order for age-based cervical cancer and STI screening follows ACOG guidelines(PB 168, 140, JZF123). See individual assays for performing site location. Clinical Information: Abnormal bleeding Intrauterine contraceptive device Fly6 LMP: NONE GIVEN Fly6 Prev. PAP: YES Keen IOt Prev. BX: NONE GIVEN Keen IOt SOURCE: None given Fly6 Statement Of Adequacy: Fly6 Comment: Satisfactory for evaluation. Endocervical/transformation zone component present. Interpretation/Re sult: Negative for intraepithelial lesion or malignancy. Fly6 Infection Bacteria morphologically consistent with Actinomyces spp. Fly6 COMMENT: [employer] [place] [employer] Comment: This case could not be evaluated with computer assisted technology. The slide was manually screened according to routine procedures. Supervisor Silvering Department: Qu [employer] Comment: TEVIN, CT(ASCP) CT screening location: [address] ??[phone] Review Supervisor Silvering Department: Fly6 Comment: ALS, CT(ASCP) CT screening location: [address] ??[phone] (Always Message) Que st [employer] Comment: EXPLANATORY NOTE: The Pap is a [...] HPV nRNA E6/E7 Not Detected Not Detected Fly6 Comment: Methodology: Street Worker-Mediated Amplification This assay detects E6/E7 viral messenger RNA (mRNA) from 14 high-risk HPV types (16,18,31,33,35,39,45,51,52,56,58,59,66,68). Cervical sources are required for HPV testing. If a vaginal source from a patient who has had a total hysterectomy with removal of cervix was submitted, please contact the testing laboratory for alternative testing options. For additional information, please refer to http://Medic [employer]/faq/TGM797p3 (This link if provided for information/ educational purposes only.) Chlamydia trachomatis RNA, TMA, Urogenital NOT DETECTED NOT DETECTED Fly6 Neisseria gonorrhoeae RNA, TMA, Urogenital NOT DETECTED NOT DETECTED Fly6 (Always Message) [employer] Comment: The analytical performance characteristics of this assay, when used to test SurePath(TM) specimens have been determined by [employer]. The modifications have not been cleared or approved by the FDA. This assay has been validated pursuant to the CLIA regulations and is used for clinical purposes. For additional information, please refer to https://[employer]/faq/DVJ407 (This link is being provided for information/ educational purposes only.) Trichomonas vaginalis, QL, TMA, PAP Vial NOT DETECTED NOT DETECTED Fly6 Comment: The analytical performance characteristics of this assay have been determined by [employer]. The modifications have not been cleared or approved by the FDA. This assay has been validated pursuant to the CLIA regulations and is used for clinical purposes. For additional information, please refer to http://[employer]/ faq/Trichomonastma (This link is being provided for information/ educational purposes only.) 08/29/2022 2:14 PM EST 08/30/2022 11:00 AM EST us Leandra CHEN LAB CYTOLOGY ORDERABLES F inal Result [facility] [address] [facility], [facility], [place] [address] Fly6 [address] [facility], ([address]) [place] [address] * HEPATITIS C AB W/REFL TO HCV RNA, QN, PCR (04/20/2022 8:33 AM EDT) HEPATITIS C ANTIBODY NON-REACT ALVIN NON-REACT ALVIN [facility] INDEX 0.14 <1.00 [facility] Comment: ?? HCV antibody was non-reactive. There is no laboratory ?? evidence of HCV infection. ?? In most cases, no further action is required. However, if recent HCV exposure is suspected, a test for HCV RNA (test code 10117) is suggested. ?? For additional information please refer to http://Medic Trace.[employer]/faq/KII83n8 (This link is being provided for informational/ educational purposes only.) ?? 04/20/2022 8:33 AM EDT Vito De Leon MD HISTORICAL/NON ORD ERABLE LABS Final Result [facility] [address] [place] [address], * HIV 1/2 ANTIGEN/ANTIBODY,FOURTH GENERATION W/RFL (04/20/2022 8:33 AM EDT) HIV-1/2 ANTIGEN AND ANTIBODIES, 4TH GENERATION W/ REFLEX NON-REACT ALVIN NON-REACT ALVIN [facility] Comment: HIV-1 antigen and HIV-1/HIV-2 [...] ? For additional information please refer to http://Medic Trace.[employer]/faq/RDG046 (This link is being provided for informational/ educational purposes only.) ? The performance of this assay has not been clinically validated in patients less than 2 years old. ?? 04/20/2022 8:33 AM EDT Vito De Leon MD LAB BLOOD ORDERABL ES Final Result [facility] [address] from Last 3 Months or Most Recently Relevant to Health Maintenance [place] [address] [place] [address] C3 Care Teams Print Color Operator Relationship Specialty Start Date End Date Vito Allen MD [address] [place] [phone] PCP - General Internal Medicine 07/10/19
--- OUTSIDE RECORDS SUMMARY | 2024-12-22 14:27 | XMS_ITS | Clinical Summary ---
Author Organization [facility] Address [address] [place] [address] Care Team Providers Care Access Developer Name Role Phone Unavailable Primary Care Provider [...]
[2024-12-24 11:21] VITALS: BP 151/59; PULSE 58; RESP 16; TEMP 36.5; O2SAT 97; BMI 27.1
--- NOTE | 2024-12-24 11:46 | MHC.SHP ---
Pre-Procedural Eval Section A - 24 Hr Update-Section A only Date of Service: 12/24/24 The patient is an INPATIENT: No Changes since office visit: No Cold of Flu in the past 2 weeks, No New Medical Problems, No Changes in Medication and No Patient answered all questions The patient has been examined within 24 hours of the surgical procedure. The History & Physical has been completed within 30 days and I have reviewed it.: Yes Section B - Complete if H&P > 30 days Chief Complaint: Carpal tunnel syndrome, left upper limb Allergies: Allergies Allergy/AdvReac Type Severity Reaction Status Date / Time codeine [CODEINE] Allergy Unknown RASH Verified 12/19/24 09:05 Codeine Allergy Unknown Rash Uncoded 12/19/24 09:05 Plan Diagnosis/Plan: Unchanged I have reviewed the history and physical and performed a pertinent physical examination on my patient. No changes have occurred unless specified. Time Spent With Patient Time: Total time managing care of this patient today ____ minutes.
--- NOTE | 2024-12-24 11:48 | P.OP_ITS ---
Operative Note Operative Note Date of Service: 12/24/24 Narrative: Preop diagnosis: 1. Left Carpal tunnel syndrome Postop diagnosis: same Procedure: 1. Left Carpal tunnel release Surgeon: Pilar Feliz MD Tape Keller Operator: Deric GARIBAY Anesthesia: local block using 1% lidocaine with epinephrine Findings: Thickened transverse carpal ligament. EBL: Less than 5 mL Specimens: None Complications: None Disposition: Brought to recovery room in stable condition Plan: Follow-up for 10-14 days for wound check and suture removal Indications: The patient is 54 years old, with left carpal tunnel syndrome that has been unresponsive to nonoperative management. The risks and benefits of operative treatment including but not limited to risk of damage to blood vessels, nerves, tendons, infection, persistent pain, persistent symptoms, or possible need for additional surgery were discussed with the patient and the patient wishes to proceed with surgery. Procedure: Once consent was obtained a local block was performed using a combination of 1% lidocaine with epinephrine. The patient was then brought back to the operating suite and placed on the operative table in supine position. The left upper extremity was prepped and draped in a standard surgical fashion. Once assured that we had a good block, a 2.0 cm longitudinal incision was made centered over the carpal tunnel. The incision was made through the skin to the subcutaneous tissues using a #15 blade. Dissection was made down to the level of the transverse carpal ligament with care being taken to protect the palmar cutaneous nerve. Once the transverse carpal ligament was clearly visualized, a longitudinal incision was made in the transverse carpal ligament 1st using a #15 blade, then using tenotomy scissors under direct visualization. Care was taken to look for and protect the motor branch of the median nerve when seen in this area. Once satisfied with our carpal tunnel release the wound was copiously irrigated with normal saline and hemostasis was obtained with a brief period of local pressure. The skin edges were reapproximated with some 5.0 nylon suture material and a sterile dressing was applied. The patient appears to have tolerated the procedure well and with no complications. All digits were well vascularized at the conclusion of the case.
[2024-12-24 13:45] VITALS: BP 138/62; PULSE 77; RESP 16; O2SAT 98
== END 2024-12-24 13:46 | disposition home or self-care (01) ==
PROVIDERS: PCP Internal Medicine; Visit Provider Orthopaedic Surgery
PROC: (CPT 64721; principal; 2024-12-24 14:10)
DX: G56.02 Carpal tunnel syndrome, left upper limb (principal); R20.0 Anesthesia of skin; R20.2 Paresthesia of skin; M19.049 Primary osteoarthritis, unspecified hand; E11.9 Type 2 diabetes mellitus without complications; M47.812 Spondylosis without myelopathy or radiculopathy, cervical region; F32.A Depression, unspecified; Z88.5 Allergy status to narcotic agent
CPT/HCPCS: 64721; J0171; J2003

== ENCOUNTER → 2024-12-24 10:02 | Outpatient (BNV) | payer MEDICAID, SELFPAY | PROVIDERS: PCP Internal Medicine; Visit Provider Orthopaedic Surgery | DX: G56.02 Carpal tunnel syndrome, left upper limb (principal) | CPT/HCPCS: 64721 ==

== ENCOUNTER 2025-01-15 10:53 | Outpatient (REF) | payer MEDICAID, SELFPAY ==
--- NOTE | ~2025-01-15 | US_ITS ---
EXAMINATION: MM DIAGNOSTIC DIGITAL BREAST TOMOSYNTHESIS, RIGHT Limited right breast ultrasound. CLINICAL INFORMATION: Call back from screening for asymmetry with questioned distortion in the lateral right breast on CC view. COMPARISON: Mammography: [facility] on PACS. TECHNIQUE: Digital breast tomosynthesis is performed in both the craniocaudal and mediolateral oblique views along with computer-aided detection (CAD). Synthesized 2D images are generated from the tomosynthesis. FINDINGS: There are scattered areas of fibroglandular density (ACR BI-RADS breast composition Category b). Previously seen asymmetry in the lateral right breast on CC view posterior depth does not persist on additional imaging projections and likely represented overlapping breast tissue. No distortion is seen. There are no significant masses, abnormal calcifications, or other abnormalities. Targeted color Doppler ultrasound scanning in the lateral breast from 7-11 o'clock demonstrates normal fibronodular breast tissue. There is an incidental simple to minimally complicated cyst at 11:00 3 cm from the nipple measuring 4 x 4 x 3 mm. US/US breast RT limited mamm only IMPRESSION: Incidental simple to minimally complicated cyst on ultrasound. Benign. Otherwise no mammographic evidence of malignancy ASSESSMENT: BI-RADS BI-RADS 2 - Benign Findings RECOMMENDATION: 1 year F/U Results were provided to the patient at time of visit by the technologist. This patient's information was entered into a reminder system with a target due date for their next mammogram. Electronically signed by: Mary Painting DO 01/15/2025 11:36 AM EDT
--- OUTSIDE RECORDS SUMMARY | 2025-01-15 12:50 | XMS_ITS | Encounter Summary ---
Author Organization [employer] Address [address] [facility] [address] [place] [address] Care Team Providers Care Icebox Man Name Role Phone Vito Allen MD Primary Care Prov ider Encounter Details Date Type Department Care Team ([facility] st Contact Info) Description 01/15/2025 Orders Only [facility] [address] [place], [place] [phone] Vito Allen MD [address] [place], [place] [phone] Social History Tobacco Use Types Packs/Day Years Used Date Smoking Tobacco: Never Passive Smoke Exposure: Never Smokeless Tobacco: Never Depression Answer Date Recorded Patient Health Questionnaire-9 [...] on file documented as of this encounter Procedures Procedure Name Priority Date/Time Associated Diagnosis Comments BI MAMMOGRAM DIAGNOSTIC TOMOSYNTHESIS ADDED VIEW RIGHT Routine 01/15/2025 11:05 AM EDT BI US BREAST LIMITED RIGHT Routine 01/15/2025 11:05 AM EDT documented in this encounter Results * BI US Breast Limited Right (01/15/2025 11:05 AM EDT) Anatomical Region Laterality Modality Breast Right Ultrasound 01/15/2025 11:0 5 AM EDT Narrative 01/15/2025 11:39 AM EDT ? [facility] ? [address] ?[place] [id number] ? Ultrasound Report ? Signed ? Patient: Keyonna Keller ?MR#: M ?? [id number] ? : 1970 ?Acct:[id number] ? Age/Sex: 54 / F ?ADM Date: 01/15/25 ? Loc: HO.MAMMO ? Attending Dr: Vito De Leon MD ? Ordering Physician: Vito Allen MD ?? Date of Service: 01/15/25 ?? Procedure(s): US breast RT limited mamm only ?? Accession Number(s): [id number] ? cc: Vito Allen MD ? EXAMINATION: ?? MM DIAGNOSTIC DIGITAL BREAST TOMOSYNTHESIS, RIGHT ?? Limited right breast ultrasound. ? CLINICAL INFORMATION: ? Call back from screening for asymmetry with questioned distortion in ?? the lateral right breast on CC view. ? COMPARISON: ?? Mammography: [facility] on PACS. ? TECHNIQUE: ?? Digital breast tomosynthesis is performed in both the craniocaudal and ?? mediolateral oblique views along with computer-aided detection (CAD). ?? Synthesized 2D images are generated from the tomosynthesis. ? FINDINGS: ?? There are scattered areas of fibroglandular density (ACR BI-RADS breast ?? composition Category b). ?? Previously seen asymmetry in the lateral right breast on CC view ?? posterior depth does not persist on additional imaging projections and ?? likely represented overlapping breast tissue. No distortion is seen. ?? There are no significant masses, abnormal calcifications, or other ?? abnormalities. ? Targeted color Doppler ultrasound scanning in the lateral breast from ?? 7-11 o'clock demonstrates normal fibronodular breast tissue. There is ?? an incidental simple to minimally complicated cyst at 11:00 3 cm from ?? the nipple measuring 4 x 4 x 3 mm. ? US/US breast RT limited mamm only ?? IMPRESSION: ?? Incidental simple to minimally complicated cyst on ultrasound. Benign. ?? Otherwise no mammographic evidence of malignancy ? ASSESSMENT: ? BI-RADS BI-RADS 2 - Benign Findings ? RECOMMENDATION: ?? 1 year F/U ? Results were provided to the patient at time of visit by the ?? technologist. ? This patient's information was entered into a reminder system with a ?? target due date for their next mammogram. ? Electronically signed by: ??Mary Painting DO ??01/15/2025 11:36 AM EDT ?? RP ? Dictated By: ?Mary Painting DO ? Signed By: ?<Electronically signed by Mary Painting DO in OV> ? 01/15/25 1136 ? DD/ 1105 ? TD/TT: 01/15/25 1130 ? Evaporator Operator Molasses: ? Procedure Note Andria, Image - 01/15/2025 [facility] [address] [place] [address] [place], [place] [address] Ultrasound Report Signed Patient: Edwin Keller#: M [id number] : 1970Acct:[id number] Age/Sex: 54 / FADM Date: 01/15/25 Loc: MAMMO Attending Dr: Vito De Leon MD Ordering Physician: Vito Allen MD Date of Service: 01/15/25 Procedure(s): US breast RT limited mamm only Accession Number(s): [id number] cc: Vito Allen MD EXAMINATION: MM DIAGNOSTIC DIGITAL BREAST TOMOSYNTHESIS, RIGHT Limited right breast ultrasound. CLINICAL INFORMATION: Call back from screening for asymmetry with questioned distortion in the lateral right breast on CC view. COMPARISON: Mammography: [facility] on PACS. TECHNIQUE: Digital breast tomosynthesis is performed in both the craniocaudal and mediolateral oblique views along with computer-aided detection (CAD). Synthesized 2D images are generated from the tomosynthesis. FINDINGS: There are scattered areas of fibroglandular density (ACR BI-RADS breast composition Category b). Previously seen asymmetry in the lateral right breast on CC view posterior depth does not persist on additional imaging projections and likely represented overlapping breast tissue. No distortion is seen. There are no significant masses, abnormal calcifications, or other abnormalities. Targeted color Doppler ultrasound scanning in the lateral breast from 7-11 o'clock demonstrates normal fibronodular breast tissue. There is an incidental simple to minimally complicated cyst at 11:00 3 cm from the nipple measuring 4 x 4 x 3 mm. US/US breast RT limited mamm only IMPRESSION: Incidental simple to minimally complicated cyst on ultrasound. Benign. Otherwise no mammographic evidence of malignancy ASSESSMENT: BI-RADS BI-RADS 2 - Benign Findings RECOMMENDATION: 1 year F/U Results were provided to the patient at time of visit by the technologist. This patient's information was entered into a reminder system with a target due date for their next mammogram. Electronically signed by: Mary Painting DO 01/15/2025 11:36 AM EDT Dictated By: Mary Painting DO Signed By: <Electronically signed by Mary Painting DO in OV> 01/15/25 1136 DD/ 1105 TD/TT: 01/15/25 1130 Evaporator Operator Molasses: us Vito De Leon MD IMG US PROCEDURES Edited Result - Final * BI Mammogram Diagnostic Tomosynthesis added right (01/15/2025 11:05 AM EDT) Anatomical Region Laterality Modality Breast Left Mammography 01/15/2025 11:0 5 AM EDT Narrative 01/15/2025 11:39 AM EDT ? [facility] ? [address] ?[place], [place] [address] ?[phone] ? Mammography Report ? Signed ? Patient: Keyonna Keller ?MR#: M ?? [id number] ? : 1970 ?Acct:[id number] ? Age/Sex: 54 / F ?ADM Date: 01/15/25 ? Loc: HO.MAMMO ? Attending Dr: Vito De Leon MD ? Ordering Physician: Vito Allen MD ?Res ?? ults: 2Benign Findings ? Date of Service: 01/15/25 ?Follow Up: 1 Year From Orig ?? inal Mammogram ? Procedure(s): MM tomosynthesis added views R ?? Accession Number(s): [id number] ? cc: Sánchez De Leon,Vito MD ? EXAMINATION: ?? MM DIAGNOSTIC DIGITAL BREAST TOMOSYNTHESIS, RIGHT ?? Limited right breast ultrasound. ? CLINICAL INFORMATION: ? Call back from screening for asymmetry with questioned distortion in ?? the lateral right breast on CC view. ? COMPARISON: ?? Mammography: [facility] on PACS. ? TECHNIQUE: ?? Digital breast tomosynthesis is performed in both the craniocaudal and ?? mediolateral oblique views along with computer-aided detection (CAD). ?? Synthesized 2D images are generated from the tomosynthesis. ? FINDINGS: ?? There are scattered areas of fibroglandular density (ACR BI-RADS breast ?? composition Category b). ?? Previously seen asymmetry in the lateral right breast on CC view ?? posterior depth does not persist on additional imaging projections and ?? likely represented overlapping breast tissue. No distortion is seen. ?? There are no significant masses, abnormal calcifications, or other ?? abnormalities. ? Targeted color Doppler ultrasound scanning in the lateral breast from ?? 7-11 o'clock demonstrates normal fibronodular breast tissue. There is ?? an incidental simple to minimally complicated cyst at 11:00 3 cm from ?? the nipple measuring 4 x 4 x 3 mm. ? MM/MM tomosynthesis added views R ?? IMPRESSION: ?? Incidental simple to minimally complicated cyst on ultrasound. Benign. ?? Otherwise no mammographic evidence of malignancy ? ASSESSMENT: ? BI-RADS BI-RADS 2 - Benign Findings ? RECOMMENDATION: ?? 1 year F/U ? Results were provided to the patient at time of visit by the ?? technologist. ? This patient's information was entered into a reminder system with a ?? target due date for their next mammogram. ? Electronically signed by: ??Mary Painting DO ??01/15/2025 11:36 AM EDT ? Dictated By: ?Mary Painting DO ? Signed By: ?<Electronically signed by Mary Painting DO in OV> ? 01/15/25 1136 ? DD/ 1105 ? TD/TT: 01/15/25 1115 ? Evaporator Operator Molasses: ? Procedure Note Danni Ayers - 01/15/2025 [facility] [address] [place] [address] Dr. [place], [place] [address] Mammography Report Signed Patient: Liliya JuniorEdwin samano#: M [id number] : 1970Acct:[id number] Age/Sex: 54 / FADM Date: 01/15/25 Loc: HO.MAMMO Attending Dr: Vito De Leon MD Ordering Physician: Vito Allen ults: 2Benign Findings Date of Service: 01/15/25Follow Up: 1 Year From [facility] Mammogram Procedure(s): MM tomosynthesis added views R Accession Number(s): [id number] cc: Vito Allen MD EXAMINATION: MM DIAGNOSTIC DIGITAL BREAST TOMOSYNTHESIS, RIGHT Limited right breast ultrasound. CLINICAL INFORMATION: Call back from screening for asymmetry with questioned distortion in the lateral right breast on CC view. COMPARISON: Mammography: [facility] on PACS. TECHNIQUE: Digital breast tomosynthesis is performed in both the craniocaudal and mediolateral oblique views along with computer-aided detection (CAD). Synthesized 2D images are generated from the tomosynthesis. FINDINGS: There are scattered areas of fibroglandular density (ACR BI-RADS breast composition Category b). Previously seen asymmetry in the lateral right breast on CC view posterior depth does not persist on additional imaging projections and likely represented overlapping breast tissue. No distortion is seen. There are no significant masses, abnormal calcifications, or other abnormalities. Targeted color Doppler ultrasound scanning in the lateral breast from 7-11 o'clock demonstrates normal fibronodular breast tissue. There is an incidental simple to minimally complicated cyst at 11:00 3 cm from the nipple measuring 4 x 4 x 3 mm. MM/MM tomosynthesis added views R IMPRESSION: Incidental simple to minimally complicated cyst on ultrasound. Benign. Otherwise no mammographic evidence of malignancy ASSESSMENT: BI-RADS BI-RADS 2 - Benign Findings RECOMMENDATION: 1 year F/U Results were provided to the patient at time of visit by the technologist. This patient's information was entered into a reminder system with a target due date for their next mammogram. Electronically signed by: Mary Painting DO 01/15/2025 11:36 AM EDT Dictated By: Mary Painting DO Signed By: <Electronically signed by Mary Painting DO in OV> 01/15/25 1136 DD/ 1105 TD/TT: 01/15/25 1115 Evaporator Operator Molasses: Vito De Leon MD IMG BI PROCEDURES Edited Result - Final documented in this encounter Visit Diagnoses Not on filedocumented in this encounter Additional Health Concerns Assessment Noted Time PHQ-9 Depression Total Score: 0 05/17/20 23 10:11 AM EDT documented as of this encounter Care Teams Icebox Man Relationship Specialty Start Date End Date Vito Allen MD [address] [place] [id number] PCP - General Internal Medicine 07/10/19 documented as of this encounter
== END 2025-01-15 10:54 | disposition home or self-care (01) ==
LOC: HO.MAMMO 10:53
PROVIDERS: PCP Internal Medicine; Visit Provider Internal Medicine
DX: N64.89 Other specified disorders of breast (principal)
CPT/HCPCS: 76642; 77061; 77065

== ENCOUNTER → 2025-01-15 11:00 | Outpatient (BNV) | payer MEDICAID, SELFPAY | PROVIDERS: PCP Internal Medicine; Visit Provider Internal Medicine | DX: N60.01 Solitary cyst of right breast (principal) | CPT/HCPCS: 76642; 77061; 77065 ==

== ENCOUNTER 2025-01-19 14:42 | Outpatient (AMB) | payer MEDICAID, SELFPAY ==
[2025-01-19 14:53] VITALS: BMI 27.1
--- NOTE | 2025-01-19 14:53 | A.OFFVIS_ITS ---
Vital Signs 01/19/25 14:53 Height 5 ft 8 in Weight 178 lb BMI 27.1 Intake Visit Reasons: OV-Lt shoulder pain/limited ROM last inj 08/28/24 Intake Note: Keyonna is a 54 year old right dominant female who presents today for a follow up of left shoulder pain, last injection 08/28/24. Patient reports the injection did not provide relief. Patient states she continues taking Ibuprofen and Tylenol as needed without much relief. Patient shares pain is much worse at night, waking her up through the night. [employer] Consultant Required: Yes [employer] Portal Consultant Language: Blocking Machine Operator Name: (Owen ([id number]) Allergies codeine [CODEINE] Allergy (Unknown, Verified 01/19/25 14:53) RASH Codeine Allergy (Unknown, Uncoded 01/19/25 14:53) Rash HPI HPI OV-Lt shoulder pain/limited ROM last inj 08/28/24: Details: 54 yo female returns to the office today for left shoulder pain s/p injection 08/28/24. She states the injection helped for about 2 days and then her pain returned. She states she continues to have limitations with daily activities such as raising her arm and reaching behind her back. She has difficulty with sleeping at night. 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 / [employer] Review of Systems Const All systems reviewed & are unremarkable except as noted in HPI and below Physical Exam Vital Signs: BMI result Body Mass Index 27.1 Const General: cooperative and no acute distress Orientation/consciousness: patient oriented x3 HEENT Head: Yes normal to inspection, Yes normocephalic and Yes atraumatic Eyes General: appearance normal, both eyes and all related structures Resp Effort & Inspection: normal respiratory effort and able to speak in complete sentences Cardio Rate: regular rate Peripheral pulses: Peripheral pulses 2+ throughout GI Palpation (GI): Soft to palpation Skin Lesions: no lesions Rashes: no rashes Neuro General: patient oriented x3 Extrem Other: Left shoulder normal to inspection. Tenderness over the bicipital groove and along the deltoid region of the shoulder. Forward flexion to 175, external rotation to 90, internal rotation to S1. 5/5 RTC strength. Positive davis and cross body abduction. + obriens. NVI. Assessment & Plan Assessment & Plan (1) Bicipital tendinitis, left shoulder: Code(s): M75.22 - Bicipital tendinitis, left shoulder Category: Medical Plan: I would place an order for physical therapy so she can work on a refresher course for rotator cuff and periscapular stabilization. I also placed an order for an MRI of the left shoulder to further evaluate the integrity of the rotator cuff. Once the scan is complete I will contact her to discuss the next step in her treatment. Orders: Orders MR shoulder LT wo con Today S46.009A - Unspecified injury of muscle(s) and tendon(s) of the rotator cuff of unspecified shoulder, initial encounter PT Evaluation and Treatment Today M75.22 - Bicipital tendinitis, left shoulder Coding Level of Care Code Est Pt Level 3 (41634) Complex EM visit Add On G2211 Diagnoses Bicipital tendinitis, left shoulder M75.22
--- OUTSIDE RECORDS SUMMARY | 2025-01-19 16:27 | XMS_ITS | Encounter Summary ---
Author Organization [employer] Address [address] [place] [address] Care Team Providers Care Medical Office Technology Instructor Name Role Phone Vito Allen MD Primary Care Prov ider Encounter Details Date Type Department Care Team ([facility] st Contact Info) Description 01/15/2025 Orders Only [facility] [address] [place], [place] [phone] Vito Allen MD [address] [place], [place] [phone] Social History Tobacco Use Types Packs/Day Years Used Date Smoking Tobacco: Never Passive Smoke Exposure: Never Smokeless Tobacco: Never Depression Answer Date Recorded Patient Health Questionnaire-9 Score 0 05/17/2023 Housing Stability Answer Date Recorded What is your housing situation today? I have alexmarilyn henderson 05/21/[address] you [...] EDT Narrative 01/15/2025 11:39 AM EDT ? [facility] ? [address] ?[place] [address] ? Ultrasound Report ? Signed ? Patient: Keyonna Keller ?MR#: M ?? [id number] ? : 1970 ?Acct:[id number] ? Age/Sex: 54 / F ?ADM Date: 01/15/25 ? Loc: HO.MAMMO ? Attending Dr: Vito De Leon MD ? Ordering Physician: Vito Allen MD ?? Date of Service: 01/15/25 ?? Procedure(s): US breast RT limited mamm only ?? Accession Number(s): [id number] ? cc: Vito Allen MD ? EXAMINATION: [...] DD/ 1105 ? TD/TT: 01/15/25 1130 ? Video Technician: ? Procedure Note Andria, Image - 01/15/2025 [facility] [address] [place] [address] Dr[place], [place] [address] Ultrasound Report Signed Patient: Edwin Keller#: M [id number] : 1970Acct:[id number] Age/Sex: 54 / FADM Date: 01/15/25 Loc: MAMMO Attending Dr: Vito De Leon MD Ordering Physician: Vito Allen MD Date of Service: 01/15/25 Procedure(s): US breast RT limited mamm only Accession Number(s): [id number] cc: Vito Allen MD EXAMINATION: MM DIAGNOSTIC [...] 01/15/25 1136 DD/ 1105 TD/TT: 01/15/25 1130 Video Technician: us Vito De Leon MD IMG US PROCEDURES Edited Result - Final * BI Mammogram Diagnostic Tomosynthesis added right (01/15/2025 11:05 AM EDT) Anatomical Region Laterality Modality Breast Left Mammography 01/15/2025 11:0 5 AM EDT Narrative 01/15/2025 11:39 AM EDT ? [facility] ? [address] ?[place], [place] [address] ?[phone] ? Mammography Report ? Signed ? Patient: Keyonna Keller ?MR#: M ?? [id number] ? : 1970 ?Acct:[id number] ? Age/Sex: 54 / F ?ADM Date: 01/15/25 ? Loc: HO.MAMMO ? Attending Dr: Vito De Leon MD ? Ordering Physician: Vito Allen MD ?Res ?? ults: 2Benign Findings ? Date of Service: 01/15/25 ?Follow Up: 1 Year From Orig ?? inal Mammogram ? Procedure(s): MM tomosynthesis added views R ?? Accession Number(s): [id number] ? cc: Sánchez De Leon,Vito MD ? [...] DD/ 1105 ? TD/TT: 01/15/25 1115 ? Video Technician: ? Procedure Note Danni Ayers - 01/15/2025 [facility] [address] [place] [address] [place], [place] [address] Mammography Report Signed Patient: Liliya JuniorEdwin samano#: M [id number] : 1970Acct:[id number] Age/Sex: 54 / FADM Date: 01/15/25 Loc: HO.MAMMO Attending Dr: Vito De Leon MD Ordering Physician: Vito Allne ults: 2Benign Findings Date of Service: 01/15/25Follow Up: 1 Year From [facility] Mammogram Procedure(s): MM tomosynthesis added views R Accession Number(s): [id number] cc: Vito Allen MD EXAMINATION: MM DIAGNOSTIC [...] 01/15/25 1136 DD/ 1105 TD/TT: 01/15/25 1115 Video Technician: Vito De Leon MD IMG BI PROCEDURES Edited Result - Final documented in this encounter Visit Diagnoses Not on filedocumented in this encounter Additional Health Concerns Assessment Noted Time PHQ-9 Depression Total Score: 0 05/17/20 23 10:11 AM EDT documented as of this encounter Care Teams Medical Office Technology Instructor Relationship Specialty Start Date End Date Vito Allen MD [address] [place] [id number] PCP - General Internal Medicine 07/10/19 documented as of this encounter
== END 2025-01-19 16:12 | disposition home or self-care (01) ==
LOC: HO.HOS 14:42
PROVIDERS: PCP Internal Medicine; Visit Provider Physician Assistant
DX: M75.22 Bicipital tendinitis, left shoulder (principal)
CPT/HCPCS: 99213

== ENCOUNTER → 2025-01-19 14:42 | Outpatient (BNVA) | payer MEDICAID, SELFPAY | PROVIDERS: PCP Internal Medicine; Visit Provider Physician Assistant | DX: M75.22 Bicipital tendinitis, left shoulder (principal); M25.512 Pain in left shoulder | CPT/HCPCS: 99212 ==

== ENCOUNTER 2025-01-20 12:40 | Outpatient (AMB) | payer MEDICAID, SELFPAY ==
--- NOTE | 2025-01-20 12:50 | A.OFFVIS_ITS ---
Vital Signs 01/20/25 12:55 Height 5 ft 8 in Weight 178 lb BMI 27.1 Handedness Right Intake Visit Reasons: PO- PO LT CTR 12/24/24 AR Intake Note: Keyonna is a 54 year old right hand dominant female who presents today for a post operative visit status post left carpal tunnel release DOS: 12/24/[address] Pilar Feliz. Patient reports mild numbness and tingling that has not resolved in the 2nd and 3rd left carrasco digits. She states she is having pain at the base of her left thumb. She states her sutures fell out on their own so she removed the last one that remained. She says they fell out about 10 days after surgery. Denies any drainage from her incision. Photograph Tinter Required: Yes Photograph Tinter Language: Lumber Piler Operator Name: [id number] Allergies codeine (CODEINE) Allergy (Unknown, Verified 01/20/25 12:55) RASH Codeine Allergy (Unknown, Uncoded 01/20/25 12:55) Rash HPI HPI PO- PO LT CTR 12/24/24 AR: Details: Keyonna is a 54 year old right hand dominant female who presents today for a post operative visit status post left carpal tunnel release DOS: 12/24/[address] Pilar Feliz. Patient reports mild numbness and tingling that has not resolved in the 2nd and 3rd left carrasco digits. She states she is having pain at the base of her left thumb. She states her sutures fell out on their own so she removed the last one that remained. She says they fell out about 10 days after surgery. Denies any drainage from her incision. 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 Neuro: Normal sensation of the tips of all digits of the left hand at this time Vascular: Cap refill brisk Pain: No tenderness to palpation about the incision site on volar left wrist No pain with range of motion of the left hand ROM: Patient is able to make a closed fist and extend all digits of the left hand fully Skin: Well approximated and well healing incision site noted on the volar left wrist No lacerations or abrasions. General: No ecchymosis, erythema, or evidence of infection. Psych: Appears grossly normal Affect normal Attitude cooperative Assessment & Plan Assessment & Plan (1) Carpal tunnel syndrome on both sides: Code(s): G56.03 - Carpal tunnel syndrome, bilateral upper limbs Category: Medical Plan 1. Status post left carpal tunnel release Partial symptom relief postoperatively Patient appears to be recovering well postoperatively Patient is educated about the typical recovery course At this time, patient is informed she will require no acute follow-up, as she is recovering very well on this side patient is amenable to this plan Follow-up as needed 2. Right carpal tunnel syndrome Symptoms intermittent, daily, worse at night I educated the patient about the condition. I discussed both operative and nonoperative treatment options. The patient would like to proceed with surgery. The risks and benefits of operative treatment were discussed with the patient and the patient wishes to proceed with surgery. These risks include, but are not limited to, risk of damage to blood vessels, nerves, tendons, infection, recurrence, incomplete relief of preoperative symptoms, persistent pain, possible need for further surgery, and the risks associated with regional blocks and/or anesthesia. Plan is to take the patient to the operating room at some point in the next few weeks for the following procedures: 1. Right carpal tunnel release under local All of the preoperative paperwork including the consent was discussed today. All of the patient's questions were answered in the clinic today. The patient understands that they will be in contact with our neurosurgical nurse to discuss scheduling their procedure. Patient denies diabetes, blood thinners, asthma, heart issues, lung issues, kidney issues, or current smoking. Coding Level of Care Code Est Pt Level 4 (40123) Diagnoses Carpal tunnel syndrome on both sides G56.03
[2025-01-20 12:55] VITALS: BMI 27.1
--- OUTSIDE RECORDS SUMMARY | 2025-01-20 14:19 | XMS_ITS | Encounter Summary ---
Author Organization [email or web address] Address [address] [facility] [address] [place] [address] Care Team Providers Care Manager Of Marketing Name Role Phone Vito Allen MD Primary Care Prov ider Encounter Details Date Type Department Care Team ([facility] st Contact Info) Description 01/15/2025 Orders Only [facility] MED & PEDS [address] [place], [place] [phone] Vito Allen MD [address] [place], [place] [phone] Social History Tobacco Use Types Packs/Day Years [...] EDT Narrative 01/15/2025 11:39 AM EDT ? [facility] ? [address] ?[place] [address] ? Ultrasound Report ? Signed ? Patient: Keyonna Keller ?MR#: M ?? [id number] ? : 1970 ?Acct:[id number] ? Age/Sex: 54 / F ?ADM Date: 01/15/25 ? Loc: HO.MAMMO ? Attending Dr: Vito De Leon MD ? Ordering Physician: Vito Allen MD ?? Date of Service: 01/15/25 ?? Procedure(s): US breast RT limited mamm only ?? Accession Number(s): [id number] ? cc: Vito Allen MD ? EXAMINATION: [...] DD/ 1105 ? TD/TT: 01/15/25 1130 ? Director Industrial: ? Procedure Note Andria, Image - 01/15/2025 [facility] [address] [place] [address] Dr[place], [place] [address] Ultrasound Report Signed Patient: Edwin Keller#: M [id number] : 1970Acct:[id number] Age/Sex: 54 / FADM Date: 01/15/25 Loc: MAMMO Attending Dr: Vito De Leon MD Ordering Physician: Vito Allen MD Date of Service: 01/15/25 Procedure(s): US breast RT limited mamm only Accession Number(s): [id number] cc: Vito Allen MD EXAMINATION: MM DIAGNOSTIC [...] 01/15/25 1136 DD/ 1105 TD/TT: 01/15/25 1130 Director Industrial: us Vito De Leon MD IMG US PROCEDURES Edited Result - Final * BI Mammogram Diagnostic Tomosynthesis added right (01/15/2025 11:05 AM EDT) Anatomical Region Laterality Modality Breast Left Mammography 01/15/2025 11:0 5 AM EDT Narrative 01/15/2025 11:39 AM EDT ? [facility] ? [address] ?[place], [place] [address] ?[phone] ? Mammography Report ? Signed ? Patient: Keyonna Keller ?MR#: M ?? [id number] ? : 1970 ?Acct:[id number] ? Age/Sex: 54 / F ?ADM Date: 01/15/25 ? Loc: HO.MAMMO ? Attending Dr: Vito De Leon MD ? Ordering Physician: Vito Allen MD ?Res ?? ults: 2Benign Findings ? Date of Service: 01/15/25 ?Follow Up: 1 Year From Orig ?? inal Mammogram ? Procedure(s): MM tomosynthesis added views R ?? Accession Number(s): [id number] ? cc: Sánchez De Leon,Vito MD ? [...] DD/ 1105 ? TD/TT: 01/15/25 1115 ? Director Industrial: ? Procedure Note Danni Ayers - 01/15/2025 [place] [facility] [address] [place] [address] Dr. [place], [place] [address] Mammography Report Signed Patient: Liliya JuniorEdwin samano#: M [id number] : 1970Acct:[id number] Age/Sex: 54 / FADM Date: 01/15/25 Loc: HO.MAMMO Attending Dr: Vito De Leon MD Ordering Physician: Vito Allen ults: 2Benign Findings Date of Service: 01/15/25Follow Up: 1 Year From [facility] Mammogram Procedure(s): MM tomosynthesis added views R Accession Number(s): [id number] cc: Vito Allen MD EXAMINATION: MM DIAGNOSTIC [...] 01/15/25 1136 DD/ 1105 TD/TT: 01/15/25 1115 Director Industrial: Vito De Leon MD IMG BI PROCEDURES Edited Result - Final documented in this encounter Visit Diagnoses Not on filedocumented in this encounter Additional Health Concerns Assessment Noted Time PHQ-9 Depression Total Score: 0 05/17/20 23 10:11 AM EDT documented as of this encounter Care Teams Manager Of Marketing Relationship Specialty Start Date End Date Vito Allen MD [address] [place] [phone] PCP - General Internal Medicine 07/10/19 documented as of this encounter
== END 2025-01-20 14:04 | disposition home or self-care (01) ==
LOC: HO.HOS 12:41
PROVIDERS: PCP Internal Medicine
DX: G56.03 Carpal tunnel syndrome, bilateral upper limbs (principal)
CPT/HCPCS: 99214

== ENCOUNTER → 2025-01-20 12:40 | Outpatient (BNVA) | payer MEDICAID, SELFPAY | PROVIDERS: PCP Internal Medicine | DX: G56.03 Carpal tunnel syndrome, bilateral upper limbs (principal) | CPT/HCPCS: 99212 ==

== ENCOUNTER → 2025-02-24 07:50 | Outpatient (BNV) | payer MEDICAID, SELFPAY | PROVIDERS: PCP Internal Medicine; Visit Provider Radiology Diagnostic Radiology | DX: M75.42 Impingement syndrome of left shoulder (principal) | CPT/HCPCS: 73221 ==

== ENCOUNTER 2025-02-24 07:53 | Outpatient (REF) | payer MEDICAID, SELFPAY ==
--- NOTE | ~2025-02-24 | MR_ITS ---
EXAMINATION: MR SHOULDER WITHOUT CONTRAST, LEFT CLINICAL INFORMATION: Left shoulder pain, crepitus, decreased range of motion. Unspecified injury of muscles and tendons of the rotator cuff. COMPARISON: No prior MRI. Left shoulder radiographs 08/20/2024. TECHNIQUE: Multiplanar multisequence MR imaging of the left shoulder was done without IV contrast. Examination performed on a 1.5 Cheryl Siemens unit utilizing standard sequences. FINDINGS: Rotator Cuff and Biceps Tendon: Supraspinatus: There is no discrete tear. There is no tendinous retraction. There is mild increased signal throughout the distal tendon consistent with mild tendinopathy. There is no abnormality of the muscle belly. Infraspinatus: There is no discrete tear. There is no tendinous retraction. There is mild increased signal throughout the distal tendon consistent with mild tendinopathy. There is no abnormality of the muscle belly. Subscapularis: There is no definite discrete tear. There is no tendinous retraction. There is mildly increased signal throughout the distal tendon consistent with mild tendinopathy. There is no abnormality of the muscle belly. Teres Minor: Intact and normal in signal. Normal muscle belly. Biceps Long Head: Normally located within the bicipital groove. The tendon within the rotator interval demonstrates focal interstitial type tearing (series 9, image 20). The anchor appears intact. AC Joint and Acromiohumeral Arch: There is mild to moderate osteoarthrosis of the AC joint with mild joint capsular distention, mild periarticular edema, and mild to moderate undersurface spurring. There is mild encroachment upon the supraspinatus outlet (series 8, images 11-12). There is a type II acromion. There is no subacromial spurring. Subacromial space is grossly preserved. Glenohumeral Joint and Labrum: There is normal joint fluid in the glenohumeral joint. There is no effusion. There is normal alignment. The glenoid and humeral head cartilage appears grossly intact without significant thinning or defect. There is no subchondral bone plate edema present. The glenoid labrum appears grossly intact without definitive tear. Osseous Structures: There is no gross bone marrow edema or abnormal infiltrating bone marrow signal. No fracture or contusion. There is a bone island within the glenoid. Spino-glenoid Notch: Normal. Quadrilateral Space: Normal. Other: There is small volume fluid within the subacromial/subdeltoid bursa consistent with moderate bursitis. The glenohumeral ligaments appear intact without significant thickening. MR/MR shoulder LT wo con IMPRESSION: 1. There is no definite rotator cuff tear. There is mild tendinopathy of the supraspinatus, infraspinatus, and subscapularis tendons. 2. 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 3. Moderate subacromial/subdeltoid bursitis. 4. The labrum appears grossly intact without definite tear. 5. The glenohumeral joint appears grossly normal. Electronically signed by: Jose Morrison MD 02/24/2025 09:17 AM EDT
--- OUTSIDE RECORDS SUMMARY | 2025-02-24 07:55 | XMS_ITS | Clinical Summary ---
Author Organization [employer] Address [address] [facility] [address] [place] [address] Care Team Providers Care Layer Off Name Role Phone Vito Allen MD Primary Care Prov ider Allergies Active Allergy Reactions Criticality Noted Date Comments Codeine 12/20/2017 Medications Blood Pressure Monitoring (Omron 3 Series BP Monitor) device Check blood pressure on arm as directed EVERY DAY 2 Active cholecalcifero l (Vitamin D-3) 50 MCG (1999) capsule Take 1 capsule by mouth once [...] , without long-term current use of insulin ([facility]) INJECT ONE PEN (=3MG) SUBCUTANEOUSLY ONCE A WEEK 2 mL 1 3 Active atorvastatin (Lipitor) 10 MG tablet Take [...] EVERY MORNING 90 tablet 3 4 Active Alcohol Swabs (SM Alcohol Prep) 70 % pads USE ONCE DAILY OR DIRECTED 100 each 11 5 Active sertraline (Zoloft) 100 MG tabletIndicati ons:Recurrent major depression in partial remission (CMS/HCC) TAKE 1&1/2 TABLETS AT BEDTIME 135 tablet 3 5 Active Trulicity 3 MG/0.5ML solution auto-injectorI ndications:Typ e 2 diabetes mellitus with diabetic polyneuropathy , without long-term current use of insulin (CMS/HCC) INJECT ONE PEN (=3MG) SUBCUTANEOUSLY ONCE A WEEK 2 mL 3 5 Active Active Problems Problem Noted Date [...] Encounters Date Type Department Care Team Description 01/15/2025 Orders Only [facility] MED & PEDS [address] [place] [address] Vito Allen MD 01/08/2025 Refill [facility] [address] [place] [address] Vito Allen MD Type 2 diabetes mellitus with diabetic polyneuropathy, without long-term current use of insulin ([facility]) 01/01/2025 Refill [facility] [address] [place] [address] Vito Allen MD Recurrent major depression in partial remission ([facility]) 12/02/2024 Patient Outreach [facility] [address] [place], [place] [phone] Vito Allen MD Care Coordination (Outreach) from [...] your housing situation today? I have alex sing 05/21/[address] you li [...] 88 05/17/2023 10:09 AM EDT Temperature 36.9 C (98.4 F) 05/17/2023 10:09 AM EDT Respiratory Rate 20 05/17/2023 10:09 AM EDT [...] 1970 FIT 1970 FOBT 1970 Sigmoidoscopy 1970 Disability Screening 1968 Eye Exam 01/24/1978 Alcohol/Substance Use Screening 1980 Hepatitis B Vaccines (1 of 3 - 19+ 3-dose series) 01/24/1987 COVID-19 Vaccine (3 - season) 2024 09/28/2021, 08/17/2021 Depression Screening 05/17/2024 05/17/2023, 05/17/20 Diabetes: Foot Exam 05/17/2024 05/17/2023, 05/17/2023, 05/17/2023, Additional history exists SDOH Screening 05/17/2024 05/17/2023 Diabetes: Hemoglobin A1C 10/06/2024 024, 05/17/2023, 04/20/2022 Tobacco Screening 11/07/2024 11/08/2023 Influenza Vaccine (#1) 2025 , 07/03/2020, 07/15/2019, Additional history exists Diabetes: Urine Protein Screening 04/08/2025 04/08/2024, 04/20/2022 Lipid Panel 04/08/2025 04/08/2024, 04/20/2022 Mammogram 01/15/2027 01/15/2025, 04/1 01/2025, 01/24/2023, Additional history exists Cervical Cancer Screening 08/29/2027 [...] Name Priority Date/Time Associated Diagnosis Comments BI US BREAST LIMITED RIGHT Routine 01/15/2025 11:05 AM EDT BI MAMMOGRAM DIAGNOSTIC TOMOSYNTHESIS ADDED VIEW RIGHT Routine 01/15/2025 11:05 AM EDT ALBUMIN, RANDOM URINE W/CREATININE Routine 04/08/2024 [...] to Health Maintenance Results * BI Mammogram Diagnostic Tomosynthesis added right (01/15/2025 11:05 AM EDT) Anatomical Region Laterality Modality Breast Left Mammography 01/15/2025 11:0 5 AM EDT Narrative 01/15/2025 11:39 AM EDT [place] [facility] [address] [place], [place] [address] Mammography Report Signed Patient: Keyonna Keller MR#: M [id number] : 1970 Acct:[id number] Age/Sex: 54 / F ADM Date: 01/15/25 Loc: HO.MAMMO Attending Dr: Vito De Leon MD Ordering Physician: Vito Allen MD Res ults: 2Benign Findings Date of Service: 01/15/25 Follow Up: 1 Year From Orig ina Mammogram Procedure(s): MM tomosynthesis added views R Accession Number(s): [id number] cc: Vito Allen MD EXAMINATION: MM DIAGNOSTIC [...] 01/15/25 1136 DD/ 1105 TD/TT: 01/15/25 1115 Web Sizer: Procedure Note Donotuseinterpreter, Image - 01/15/20[facility] [address] [place] [address] Mammography Report Signed Patient: Edwin Keller#: M [id number] : 1970Acct:[id number] Age/Sex: 54 / FADM Date: 01/15/25 Loc: HO.MAMMO Attending Dr: Vito De Leon MD Ordering Physician: Vito Allen ults: 2Benign Findings Date of Service: 01/15/25Follow Up: 1 Year From Orig inal Mammogram Procedure(s): MM tomosynthesis added views R Accession Number(s): [id number] cc: Vito Allen MD EXAMINATION: MM DIAGNOSTIC [...] 01/15/25 1136 DD/ 1105 TD/TT: 01/15/25 1115 Web Sizer: us Vito De Leon MD IMG BI PROCEDURES Edited Result - Final * BI US Breast Limited Right (01/15/2025 11:05 AM EDT) Anatomical Region Laterality Modality Breast Right Ultrasound 01/15/2025 11:0 5 AM EDT Narrative 01/15/2025 11:39 AM EDT [facility] [address] [place] [address] Ultrasound Report Signed Patient: Keyonna Keller MR#: M [id number] : 1970 Acct:[id number] Age/Sex: 54 / F ADM Date: 01/15/25 Loc: HO.MAMMO Attending Dr: Vito De Leon MD Ordering Physician: Vito Allen MD Date of Service: 01/15/25 Procedure(s): US breast RT limited mamm only Accession Number(s): [id number] cc: Vito Allen MD EXAMINATION: MM DIAGNOSTIC [...] 01/15/25 1136 DD/ 1105 TD/TT: 01/15/25 1130 Web Sizer: Procedure Note Donotuseinterpreter, Image - 01/15/2025 [facility] [address] [place] [address] [place] [address] Ultrasound Report Signed Patient: Edwin Keller#: M [id number] : 1970Acct:[id number] Age/Sex: 54 / FADM Date: 01/15/25 Loc: HO.MAMMO Attending Dr: Vito De Leon MD Ordering Physician: Vito Allen MD Date of Service: 01/15/25 Procedure(s): US breast RT limited mamm only Accession Number(s): [id number] cc: Vito Allen MD EXAMINATION: MM DIAGNOSTIC [...] 01/15/25 1136 DD/ 1105 TD/TT: 01/15/25 1130 Web Sizer: us Vito De Leon MD IMG US PROCEDURES Edited Result - Final * Albumin, Random Urine W/Creatinine (04/08/2024 9:30 AM EDT) Creatinine, Urine 120.32 mg/dL [facility] Microalbumin Urine 14.0 mg/L [facility] Microalbum Creatinine Ratio Ur 11.6 <30 ug/mg cr [facility] Comment:Albumin/Creatinine R atio Reference Ranges: Normal: < 30 ug/mg creatinine Microalbuminuria: 30 - 300 ug/mg creatinineClinical Albuminuria: > 300 ug/mg creatinine Urine (Urine, Random) 04/08/2024 9:30 AM EDT 04/08/2024 2:26 PM EDT Vito De Leon MD LAB URINE ORDERABL ES Final Result Performing Organization Address [facility] Co de Phone Number [facility] [address] [place] [address] [phone] * Hemoglobin A1c (04/08/2024 9:23 AM EDT) Hemoglobin A1c 5.6 <6.0 % [facility] Comment:Hemoglobin A1C Refer ence Range Adults: 4.8 - 6.0 % Non diabetic: < 6.0 % Goal: < 7.0 %Additional Action Suggested: > 8.0 %Note: Hemoglobin A1c results are invalid for patients with abnormal amounts of HbF. Blood transfusions may impact the HbA1c concentration in the patient sample. Estimated Average Glucose 114 mg/dL [facility] Comment:eAG = Estimated ave rage glucose which is %A1C expressed asaverage glucose, using the formula of the B4X-BduujjjBrahxsc Glucose study (ADAG), Diabetes Care, Vol.31,#8,Mar. 2007 Blood Venous blood specimen / Unknown 04/08/2024 9:23 AM EDT 04/08/2024 2:40 PM EDT Vito De Leon MD LAB BLOOD ORDERABL ES Final Result Performing Organization Address [facility] Co de Phone Number [facility] [address] [place] [phone] * (ABNORMAL) Lipid Panel, Standard (04/08/2024 9:23 AM EDT) Triglycerides 46 <150 mg/dL [facility] Comment:Desirable Triglyceri de: less than 150 mg/dLBorderline High Triglyceride 150-199 mg/dLHigh Triglyceride: 200-499 mg/dLVery High Triglyceride: greater than or equal to 5OO mg/dL Cholesterol 155 <200 mg/dL [facility] Comment:Desirable Cholestero l: less than 200 mg/dLBorderline High Cholesterol: 200-239 mg/dLHigh Cholesterol: greater than 239 mg/dL LDL Cholesterol Calculated 101(H) <100 mg/dL [facility] Comment:Desirable LDL: less than 100 mg/dLNear Optimal/Above Optimal LDL: 110- 129 mg/dLBorderline High LDL: 130-159 mg/dLHigh LDL: 160-189 mg/dLVery High LDL: greater than or equal to 190 mg/dL HDL Cholesterol 45 >40 mg/dL [facility] Comment:Desirable HDL: great er than 40 mg/dL Note: This HDL assay may give artificially low results in patients with liver disease. Blood Venous blood specimen / Unknown 04/08/2024 9:23 AM EDT 04/08/2024 2:40 PM EDT us Vito De Leon MD LAB BLOOD ORDERABL ES Final Result [facility] [address] [place] [phone] * Image-Guided Pap with Age-Based Screening??with CT/NG,??Trichomonas (08/29/2022 2:14 PM EST) Comment [employer] Comment: This order for age-based cervical cancer and STI screening follows ACOG guidelines(PB 168, 140, LMJ650). See individual assays for performing site location. Clinical Information: Abnormal bleeding Intrauterine contraceptive device [employer] [facility] LMP: NONE GIVEN [facility] Prev. PAP: YES [facility] Envision Blue Greent Prev. BX: NONE GIVEN [facility] SOURCE: None given [facility] Statement Of Adequacy: [email or web address] Comment: Satisfactory for evaluation. Endocervical/transformation zone component present. Interpretation/Re sult: Negative for intraepithelial lesion or malignancy. [facility] Infection Bacteria morphologically consistent with Actinomyces spp. [facility] COMMENT: [facility] Comment: This case could not be evaluated with computer assisted technology. The slide was manually screened according to routine procedures. Customs Manager: [employer] [place] [facility] Comment: TEVIN, CT(ASCP) CT screening location: [place] [address] Review Customs Manager: [facility] [place] [facility] Comment: ALS, CT(ASCP) CT screening location: [place] [address] (Always Message) [facility] [address] [facility] [place] [facility] Comment: EXPLANATORY NOTE: The Pap is a [...] HPV nRNA E6/E7 Not Detected Not Detected [employer] Comment: Methodology: Shoemaking Cutter-Mediated Amplification This assay detects E6/E7 viral messenger RNA (mRNA) from 14 high-risk HPV types (16,18,31,33,35,39,45,51,52,56,58,59,66,68). Cervical sources are required for HPV testing. If a vaginal source from a patient who has had a total hysterectomy with removal of cervix was submitted, please contact the testing laboratory for alternative testing options. For additional information, please refer to http://education.Houzz/faq/SPI013n9 (This link if provided for information/ educational purposes only.) Chlamydia trachomatis RNA, TMA, Urogenital NOT DETECTED NOT DETECTED [email or web address] Neisseria gonorrhoeae RNA, TMA, Urogenital NOT DETECTED NOT DETECTED [email or web address] (Always Message) [facility] [employer] [facility] Comment: The analytical performance characteristics of this assay, when used to test SurePath(TM) specimens have been determined by [facility]. The modifications have not been cleared or approved by the FDA. This assay has been validated pursuant to the CLIA regulations and is used for clinical purposes. For additional information, please refer to https://[employer].Houzz/faq/TJS546 (This link is being provided for information/ educational purposes only.) Trichomonas vaginalis, QL, TMA, PAP Vial NOT DETECTED NOT DETECTED [employer] Comment: The analytical performance characteristics of this assay have been determined by [facility]. The modifications have not been cleared or approved by the FDA. This assay has been validated pursuant to the CLIA regulations and is used for clinical purposes. For additional information, please refer to http://[employer]Houzz/ faq/Trichomonastma (This link is being provided for information/ educational purposes only.) 08/29/2022 2:14 PM EST 08/30/2022 11:00 AM EST Leandra Resendiz [facility] CYTOLOGY ORDERABLES F inal Result [facility] [address], [place] [address] [facility] [address] [facility], ([address]) [place] [address] * HEPATITIS C AB W/REFL TO HCV RNA, QN, PCR (04/20/2022 8:33 AM EDT) HEPATITIS C ANTIBODY NON-REACT ALVIN NON-REACT ALVIN [facility] INDEX 0.14 <1.00 [facility] Comment: HCV antibody was non-reactive. There is no laboratory evidence of HCV infection. In most cases, no further action is required. However, if recent HCV exposure is suspected, a test for HCV RNA (test code 85956) is suggested. For additional information please refer to http://[employer]Houzz/faq/RFJ34y5 (This link is being provided for informational/ educational purposes only.) 04/20/2022 8:33 AM EDT Vito De Leon MD HISTORICAL/NON ORD ERABLE LABS Final Result Performing Organization Address [facility] de Phone Number [facility] [address] * HIV 1/2 ANTIGEN/ANTIBODY,FOURTH GENERATION W/RFL (04/20/2022 8:33 AM EDT) HIV-1/2 ANTIGEN AND ANTIBODIES, 4TH GENERATION W/ REFLEX NON-REACT ALVIN NON-REACT ALVIN [facility] Comment: HIV-1 antigen and HIV-1/HIV-2 antibodies were not detected. There is no laboratory evidence of HIV infection. PLEASE NOTE: This information has been disclosed to you from records whose confidentiality may be protected by state law. If your state requires such protection, then the state law prohibits you from making any further disclosure of the information without the specific written consent of the person to whom it pertains, or as otherwise permitted by law. A general authorization for the release of medical or other information is NOT sufficient for this purpose. For additional information please refer to http://education.Houzz/faq/SXU477 (This link is being provided for informational/ educational purposes only.) The performance of this assay has not been clinically validated in patients less than 2 years old. 04/20/2022 8:33 AM EDT Vito De Leon MD LAB BLOOD ORDERABL ES Final Result Performing Organization Address [facility] de Phone Number [facility] [address] from Last 3 Months or Most Recently Relevant to Health Maintenance Insurance C3 Care Teams Layer Off Relationship Specialty Start Date End Date Vito Allen MD [address] [place] [phone] PCP - General Internal Medicine 07/10/19
--- OUTSIDE RECORDS SUMMARY | 2025-02-24 07:55 | XMS_ITS | Clinical Summary ---
Author Organization [employer] [facility] ity Address [address] [place] [address] Care Team Providers Care Keyboard Operator Name Role Phone Unavailable Primary Care Provider [...] Vaccine ( - 2023-2 5 season) 2024 Depression Screening 08/06/2024 Influenza Vaccine (#1) 2025 HIB Vaccines Aged Out No longer [...]
== END 2025-02-24 07:54 | disposition home or self-care (01) ==
LOC: HO.MRI 07:53
PROVIDERS: PCP Internal Medicine; Visit Provider Physician Assistant
DX: S46.009A Unspecified injury of muscle(s) and tendon(s) of the rotator cuff of unspecified shoulder, initial encounter (principal)
CPT/HCPCS: 73221

== ENCOUNTER 2025-03-05 13:05 | Outpatient (AMB) | payer MEDICAID, SELFPAY ==
--- OUTSIDE RECORDS SUMMARY | 2025-03-05 13:17 | XMS_ITS | Clinical Summary ---
Author Organization [facility] ity Address [address] [place] [id number] Care Team Providers Care Meat And Poultry Inspector Name Role Phone Unavailable Primary Care Provider [...]
--- OUTSIDE RECORDS SUMMARY | 2025-03-05 13:17 | XMS_ITS | Clinical Summary ---
Author Organization [employer] Address [address] [facility] [address] [place] [address] Care Team Providers Care Chemical Tank Worker Name Role Phone Vito Allen MD Primary [...] , without long-term current use of insulin ([facility]) INJECT ONE PEN (=3MG) SUBCUTANEOUSLY ONCE A [...] Encounters Date Type Department Care Team Description 03/05/2025 Telephone [facility] [address] [place] [address] Vito Allen MD Referral 02/25/2025 Results Follow-Up [facility] [address] [place] [address] Karen De Santiago MD MR Shoulder w/o Contrast Left 02/24/2025 Orders Only [facility] External Provider, [facility] 01/15/2025 Orders Only [facility] [address] [place] [address] Vito Allen MD 01/08/2025 Refill [facility] [address] [place] [address] Vito Allen MD Type 2 diabetes mellitus with diabetic polyneuropathy, without long-term current use of insulin ([facility]) 01/01/2025 Refill [facility] [address] [place] [address] Vito Allen MD Recurrent major depression in partial remission ([facility]) from Last 3 Months Immunizations Immunization Administration [...] 3-dose series) 01/24/1987 COVID-19 Vaccine (3 - 2023- season) 2024 09/28/2021, 08/17/2021 Depression Screening 05/17/2024 [...] Procedure Name Priority Date/Time Associated Diagnosis Comments MR SHOULDER WO CONTRAST LEFT Routine 02/24/2025 7:45 AM EDT BI US BREAST LIMITED RIGHT [...] Recently Relevant to Health Maintenance Results * MR Shoulder w/o Contrast Left (02/24/2025 7:45 AM EDT) Anatomical Region Laterality Modality Upper Extremities, Shoulder Left Magn etic Resonance 02/24/2025 7:45 AM EDT Narrative 02/24/2025 9:20 AM EDT [place] [address] Magnetic Resonance Report Signed Patient: Keyonna Keller MR#: M [id number] : 1970 Acct:[id number] Age/Sex: 55 / F ADM Date: 02/24/25 Loc: HO.MRI Attending Dr: Nile Hutchison PA-C Ordering Physician: Nile Hutchison PA-C Date of Service: 02/24/25 Procedure(s): MR shoulder LT wo con Accession Number(s): [id number] cc: Vito Allen MD; Nile Hutchison PA-C EXAMINATION: MR SHOULDER WITHOUT CONTRAST, LEFT CLINICAL INFORMATION: Left shoulder pain, crepitus, decreased range of motion. Unspecified injury of muscles and tendons of the rotator cuff. COMPARISON: No prior MRI. Left shoulder radiographs 08/20/2024. TECHNIQUE: Multiplanar multisequence MR imaging of the left shoulder was done without IV contrast. Examination performed on a 1.5 Cheryl Siemens unit utilizing standard sequences. FINDINGS: Rotator Cuff and Biceps Tendon: Supraspinatus: There is no discrete tear. There is no tendinous retraction. There is mild increased signal throughout the distal tendon consistent with mild tendinopathy. There is no abnormality of the muscle belly. Infraspinatus: There is no discrete tear. There is no tendinous retraction. There is mild increased signal throughout the distal tendon consistent with mild tendinopathy. There is no abnormality of the muscle belly. Subscapularis: There is no definite discrete tear. There is no tendinous retraction. There is mildly increased signal throughout the distal tendon consistent with mild tendinopathy. There is no abnormality of the muscle belly. Teres Minor: Intact and normal in signal. Normal muscle belly. Biceps Long Head: Normally located within the bicipital groove. The tendon within the rotator interval demonstrates focal interstitial type tearing (series 9, image 20). The anchor appears intact. AC Joint and Acromiohumeral Arch: There is mild to moderate osteoarthrosis of the AC joint with mild joint capsular distention, mild periarticular edema, and mild to moderate undersurface spurring. There is mild encroachment upon the supraspinatus outlet (series 8, images 11-12). There is a type II acromion. There is no subacromial spurring. Subacromial space is grossly preserved. Glenohumeral Joint and Labrum: There is normal joint fluid in the glenohumeral joint. There is no effusion. There is normal alignment. The glenoid and humeral head cartilage appears grossly intact without significant thinning or defect. There is no subchondral bone plate edema present. The glenoid labrum appears grossly intact without definitive tear. Osseous Structures: There is no gross bone marrow edema or abnormal infiltrating bone marrow signal. No fracture or contusion. There is a bone island within the glenoid. Spino-glenoid Notch: Normal. Quadrilateral Space: Normal. Other: There is small volume fluid within the subacromial/subdeltoid bursa consistent with moderate bursitis. The glenohumeral ligaments appear intact without significant thickening. MR/MR shoulder LT wo con IMPRESSION: 1. There is no definite rotator cuff tear. There is mild tendinopathy of the supraspinatus, infraspinatus, and subscapularis tendons. 2. 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 3. Moderate subacromial/subdeltoid bursitis. 4. The labrum appears grossly intact without definite tear. 5. The glenohumeral joint appears grossly normal. Electronically signed by: Jose Morrison MD 02/24/2025 09:17 AM EDT Dictated By: Jose Morrison MD Signed By: <Electronically signed by Jose Morrison MD in OV> 02/24/25 0917 DD/ 0745 TD/TT: 02/24/25 0825 Sea Foam Kiss Maker: Procedure Note Luiclashukriter, Image - 02/24/2025 [place] [address] Magnetic Resonance Report Signed Patient: Edwin Keller#: M [id number] : 1970Acct:[id number] Age/Sex: 55 / FADM Date: 02/24/25 Loc: HO.MRI Attending Dr: Nile Hutchison PA-C Ordering Physician: Nile Hutchison PA-C Date of Service: 02/24/25 Procedure(s): MR shoulder LT wo con Accession Number(s): [id number] cc: Vito Allen MD; Nile Hutchison PA-C EXAMINATION: MR SHOULDER WITHOUT CONTRAST, LEFT CLINICAL INFORMATION: Left shoulder pain, crepitus, decreased range of motion. Unspecified injury of muscles and tendons of the rotator cuff. COMPARISON: No prior MRI. Left shoulder radiographs 08/20/2024. TECHNIQUE: Multiplanar multisequence MR imaging of the left shoulder was done without IV contrast. Examination performed on a 1.5 Cheryl Siemens unit utilizing standard sequences. FINDINGS: Rotator Cuff and Biceps Tendon: Supraspinatus: There is no discrete tear. There is no tendinous retraction. There is mild increased signal throughout the distal tendon consistent with mild tendinopathy. There is no abnormality of the muscle belly. Infraspinatus: There is no discrete tear. There is no tendinous retraction. There is mild increased signal throughout the distal tendon consistent with mild tendinopathy. There is no abnormality of the muscle belly. Subscapularis: There is no definite discrete tear. There is no tendinous retraction. There is mildly increased signal throughout the distal tendon consistent with mild tendinopathy. There is no abnormality of the muscle belly. Teres Minor: Intact and normal in signal. Normal muscle belly. Biceps Long Head: Normally located within the bicipital groove. The tendon within the rotator interval demonstrates focal interstitial type tearing (series 9, image 20). The anchor appears intact. AC Joint and Acromiohumeral Arch: There is mild to moderate osteoarthrosis of the AC joint with mild joint capsular distention, mild periarticular edema, and mild to moderate undersurface spurring. There is mild encroachment upon the supraspinatus outlet (series 8, images 11-12). There is a type II acromion. There is no subacromial spurring. Subacromial space is grossly preserved. Glenohumeral Joint and Labrum: There is normal joint fluid in the glenohumeral joint. There is no effusion. There is normal alignment. The glenoid and humeral head cartilage appears grossly intact without significant thinning or defect. There is no subchondral bone plate edema present. The glenoid labrum appears grossly intact without definitive tear. Osseous Structures: There is no gross bone marrow edema or abnormal infiltrating bone marrow signal. No fracture or contusion. There is a bone island within the glenoid. Spino-glenoid Notch: Normal. Quadrilateral Space: Normal. Other: There is small volume fluid within the subacromial/subdeltoid bursa consistent with moderate bursitis. The glenohumeral ligaments appear intact without significant thickening. MR/MR shoulder LT wo con IMPRESSION: 1. There is no definite rotator cuff tear. There is mild tendinopathy of the supraspinatus, infraspinatus, and subscapularis tendons. 2. 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 3. Moderate subacromial/subdeltoid bursitis. 4. The labrum appears grossly intact without definite tear. 5. The glenohumeral joint appears grossly normal. Electronically signed by: Jose Morrison MD 02/24/2025 09:17 AM EDT Dictated By: Jose Morrison MD Signed By: <Electronically signed by Jose Morrison MD in OV> 02/24/25 0917 DD/ 0745 TD/TT: 02/24/25 0828 Sea Foam Kiss Maker: [facility] External Provider IMG MRI PROCEDURES Final Result * BI Mammogram Diagnostic Tomosynthesis added right (01/15/2025 11:05 AM EDT) Anatomical Region Laterality Modality Breast Left Mammography 01/15/2025 11:0 5 AM EDT Narrative 01/15/2025 11:39 AM EDT [place] [facility] [address] [place] [address] Mammography Report Signed Patient: Keyonna Keller MR#: Juan [id number] : 1970 Acct:[id number] Age/Sex: 54 / F ADM Date: 01/15/25 Loc: HO.MAMMO Attending Dr: Vito De Leon MD Ordering Physician: Vito Allen MD Res ults: 2Benign Findings Date of Service: 01/15/25 Follow Up: 1 Year From Orig ina Mammogram Procedure(s): MM tomosynthesis added views R Accession Number(s): [id number] cc: Vito Allen MD EXAMINATION: MM DIAGNOSTIC [...] Mary Painting DO 01/15/2025 11:36 AM EDT RP Dictated By: Mary Painting DO Signed By: <Electronically signed by Mary Painting DO in OV> 01/15/25 1136 DD/ 1105 TD/TT: 01/15/25 1115 Sea Foam Kiss Maker: Procedure Note Donotuseinterpreter, Image - 01/15/2025 [facility] [address] [place] [address] Mammography Report Signed Patient: Edwin Keller#: M [id number] : 1970Acct:[id number] Age/Sex: 54 / FADM Date: 01/15/25 Loc: HO.MAMMO Attending Dr: Vito De Leon MD Ordering Physician: Vito Allen ults: 2Benign Findings Date of Service: 01/15/25Follow Up: 1 Year From Orig inal Mammogram Procedure(s): MM tomosynthesis added views R Accession Number(s): [id number] cc: Vito Allen MD EXAMINATION: MM DIAGNOSTIC [...] 01/15/25 1136 DD/ 1105 TD/TT: 01/15/25 1115 Sea Foam Kiss Maker: us Vito De Leon MD IMG BI PROCEDURES Edited Result - Final * BI US Breast Limited Right (01/15/2025 11:05 AM EDT) Anatomical Region Laterality Modality Breast Right Ultrasound 01/15/2025 11:0 5 AM EDT Narrative 01/15/2025 11:39 AM EDT [facility] [address] [place] [address] Ultrasound Report Signed Patient: Keyonna Keller MR#: M [id number] : 1970 Acct:[id number] Age/Sex: 54 / F ADM Date: 01/15/25 Loc: HO.MAMMO Attending Dr: Vito De Leon MD Ordering Physician: Vito Allen MD Date of Service: 01/15/25 Procedure(s): US breast RT limited mamm only Accession Number(s): [id number] cc: Vito Allen MD EXAMINATION: MM DIAGNOSTIC [...] 01/15/25 1136 DD/ 1105 TD/TT: 01/15/25 1130 Sea Foam Kiss Maker: Procedure Note Donotuseinterpreter, Image - 01/15/2025 [facility] [address] [place] [address] Ultrasound Report Signed Patient: Edwin Keller#: M [id number] : 1970Acct:[id number] Age/Sex: 54 / FADM Date: 01/15/25 Loc: HO.MAMMO Attending Dr: Vito De Leon MD Ordering Physician: Vito Allen MD Date of Service: 01/15/25 Procedure(s): US breast RT limited mamm only Accession Number(s): [id number] cc: Vito Allen MD EXAMINATION: MM DIAGNOSTIC [...] 01/15/25 1136 DD/ 1105 TD/TT: 01/15/25 1130 Sea Foam Kiss Maker: us Vito De Leon MD IMG US PROCEDURES Edited Result - Final * Albumin, Random Urine W/Creatinine (04/08/2024 9:30 AM EDT) Creatinine, Urine 120.32 mg/dL [facility] Microalbumin Urine 14.0 mg/L [facility] Microalbum Creatinine Ratio Ur 11.6 <30 ug/mg cr [facility] Comment:Albumin/Creatinine R atio Reference Ranges: Normal: < 30 ug/mg creatinine Microalbuminuria: 30 - 300 ug/mg creatinineClinical Albuminuria: > 300 ug/mg creatinine Urine (Urine, Random) 04/08/2024 9:30 AM EDT 04/08/2024 2:26 PM EDT Vito De Leon MD LAB URINE ORDERABL ES Final Result Performing Organization Address [facility] [[email or web address]] de Phone Number [facility] [address] [place] [phone] * Hemoglobin A1c (04/08/2024 9:23 AM EDT) Hemoglobin A1c 5.6 <6.0 % [facility] Comment:Hemoglobin A1C Refer ence Range Adults: 4.8 - 6.0 % Non diabetic: < 6.0 % Goal: < 7.0 %Additional Action Suggested: > 8.0 %Note: Hemoglobin A1c results are invalid for patients with abnormal amounts of HbF. Blood transfusions may impact the HbA1c concentration in the patient sample. Estimated Average Glucose 114 mg/dL [facility] Comment:eAG = Estimated ave rage glucose which is %A1C expressed asaverage glucose, using the formula of the G9G-OyadtclHnwamzk Glucose study (ADAG), Diabetes Care, Vol.31,#8,Mar. 2007 Blood Venous blood specimen / Unknown 04/08/2024 9:23 AM EDT 04/08/2024 2:40 PM EDT Vito De Leon MD LAB BLOOD ORDERABL ES Final Result Performing Organization Address [facility] [[email or web address]] de Phone Number [facility] [address] [place] [phone] * (ABNORMAL) Lipid Panel, Standard (04/08/2024 9:23 AM EDT) Triglycerides 46 <150 mg/dL [facility] Comment:Desirable Triglyceri de: less than 150 mg/dLBorderline High Triglyceride 150-199 mg/dLHigh Triglyceride: 200-499 mg/dLVery High Triglyceride: greater than or equal to 5OO mg/dL Cholesterol 155 <200 mg/dL [facility] Comment:Desirable Cholestero l: less than 200 mg/dLBorderline High Cholesterol: 200-239 mg/dLHigh Cholesterol: greater than 239 mg/dL LDL Cholesterol Calculated 101(H) <100 mg/dL [facility] Comment:Desirable LDL: less than 100 mg/dLNear Optimal/Above Optimal LDL: 110- 129 mg/dLBorderline High LDL: 130-159 mg/dLHigh LDL: 160-189 mg/dLVery High LDL: greater than or equal to 190 mg/dL HDL Cholesterol 45 >40 mg/dL [facility] Comment:Desirable HDL: great er than 40 mg/dL Note: This HDL assay may give artificially low results in patients with liver disease. Blood Venous blood specimen / Unknown 04/08/2024 9:23 AM EDT 04/08/2024 2:40 PM EDT Vito De Leon MD LAB BLOOD ORDERABL ES Final Result [facility] [address] [place] [phone] * Image-Guided Pap with Age-Based Screening??with CT/NG,??Trichomonas (08/29/2022 2:14 PM EST) Comment [employer] Comment: This order for age-based cervical cancer and STI screening follows ACOG guidelines(PB 168, 140, DDK382). See individual assays for performing site location. Clinical Information: Abnormal bleeding Intrauterine contraceptive device [facility] LMP: NONE GIVEN [facility] [employer] [facility] Prev. PAP: YES [facility] Prev. BX: NONE GIVEN Answer.To [facility] SOURCE: None given [employer] Statement Of Adequacy: Answer.To [place] [employer] Comment: Satisfactory for evaluation. Endocervical/transformation zone component present. Interpretation/Re sult: Negative for intraepithelial lesion or malignancy. 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 Answer.To [place] [employer] [facility] COMMENT: Answer.To [place] [employer] [facility] Comment: This case could not be evaluated with computer assisted technology. The slide was manually screened according to routine procedures. Tufting Machine Fixer: [employer]amer [place] [facility] Comment: TEVIN, CT(ASCP) CT screening location: [place] [address] Review Tufting Machine Fixer: Answer.To [place] [employer] Comment: ALS, CT(ASCP) CT screening location: [place] [address] (Always Message) [facility] [employer] Comment: EXPLANATORY NOTE: The Pap is a [...] HPV nRNA E6/E7 Not Detected Not Detected [employer] [facility] Comment: Methodology: Mental Health Professional-Mediated Amplification This assay detects E6/E7 viral messenger RNA (mRNA) from 14 high-risk HPV types (16,18,31,33,35,39,45,51,52,56,58,59,66,68). Cervical sources are required for HPV testing. If a vaginal source from a patient who has had a total hysterectomy with removal of cervix was submitted, please contact the testing laboratory for alternative testing options. For additional information, please refer to http://education.Lightwire/faq/GNW062x3 (This link if provided for information/ educational purposes only.) Chlamydia trachomatis RNA, TMA, Urogenital NOT DETECTED NOT DETECTED [employer] Neisseria gonorrhoeae RNA, TMA, Urogenital NOT DETECTED NOT DETECTED [employer] [facility] (Always Message) Que [facility] [employer] Comment: The analytical performance characteristics of this assay, when used to test SurePath(TM) specimens have been determined by Answer.To. The modifications have not been cleared or approved by the FDA. This assay has been validated pursuant to the CLIA regulations and is used for clinical purposes. For additional information, please refer to https://DigitalTangible.Lightwire/faq/WSA551 (This link is being provided for information/ educational purposes only.) Trichomonas vaginalis, QL, TMA, PAP Vial NOT DETECTED NOT DETECTED Answer.To [place] [employer] Comment: The analytical performance characteristics of this assay have been determined by Answer.To. The modifications have not been cleared or approved by the FDA. This assay has been validated pursuant to the CLIA regulations and is used for clinical purposes. For additional information, please refer to http://Fruitfulll/ faq/Trichomonastma (This link is being provided for information/ educational purposes only.) 08/29/2022 2:14 PM EST 08/30/2022 11:00 AM EST Leandra Resendiz [facility] CYTOLOGY ORDERABLES F inal Result [facility] [address] [facility] [facility], [place] [address] Answer.To [facility] [address] [facility] [facility], ([address]) [place] [address] * HEPATITIS C AB W/REFL TO HCV RNA, QN, PCR (04/20/2022 8:33 AM EDT) HEPATITIS C ANTIBODY NON-REACT [facility] NON-REACT [facility] INDEX 0.14 <1.00 [facility] Comment: HCV antibody was non-reactive. There is no laboratory evidence of HCV infection. In most cases, no further action is required. However, if recent HCV exposure is suspected, a test for HCV RNA (test code 96641) is suggested. For additional information please refer to http://DigitalTangible.Lightwire/faq/OQP11n3 (This link is being provided for informational/ educational purposes only.) 04/20/2022 8:33 AM EDT Vito De Leon MD HISTORICAL/NON ORD ERABLE LABS Final Result Performing Organization Address [facility] [[email or web address]] de Phone Number [facility] [address] * HIV 1/2 ANTIGEN/ANTIBODY,FOURTH GENERATION W/RFL [...] purpose. For additional information please refer to http://education.Lightwire/faq/RFF146 (This link is being provided for informational/ educational purposes only.) The performance of this assay has not been clinically validated in patients less than 2 years old. 04/20/2022 8:33 AM EDT Vito De Leon MD LAB BLOOD ORDERABL ES Final Result Performing Organization Address [facility] [[email or web address]] de Phone Number [facility] [address] from Last 3 Months or Most Recently Relevant to Health Maintenance Insurance [facility] C3 Care Teams Chemical Tank Worker Relationship Specialty Start Date End Date SánchezVito Us MD [address] [place] [phone] PCP - General Internal Medicine 07/10/19
--- NOTE | 2025-03-05 13:43 | A.OFFVIS_ITS ---
Intake Visit Reasons: OV- LT shoulder MRI review Intake Note: Keyonna 55 yr old female presents today for her MRI results of her left shoulder. Patient reports no improvement since last visit and no changes in pain or medical history. IMPRESSION: 1. There is no definite rotator cuff tear. There is mild tendinopathy of the supraspinatus, infraspinatus, and subscapularis tendons. 2. 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 3. Moderate subacromial/subdeltoid bursitis. 4. The labrum appears grossly intact without definite tear. 5. The glenohumeral joint appears grossly normal Weigher Production Name: Shahnaz GREENBERG/GAVINO Allergies codeine (CODEINE) Allergy (Unknown, Verified 03/05/25 13:49) RASH Codeine Allergy (Unknown, Uncoded 03/05/25 13:49) Rash Medication List - Last Reconciled 03/05/25 by Nile Hutchison PA-C acetaminophen (Tylenol Extra Strength) 500 mg PO Q6H PRN atorvastatin 1 tab DAILY celecoxib (Celebrex) 200 mg PO BID 30 days dulaglutide (Trulicity) 3 mg subcut SA@0900 ibuprofen 600 mg PO Q6H PRN losartan 1 tab DAILY metformin ER 1 tab PO BIDWM sertraline 1 tab PO DAILY HPI HPI OV- LT shoulder MRI review: Details: 55-year-old female presents to the office today for a follow-up left shoulder MRI review. She has discomfort over the top of the shoulder especially at night with sleeping. She has done physical therapy but only for visits because she states the physical therapy was making her pain worse. 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 She does have protraction of the scapula. She has significant tenderness over the AC joint. Results Reviewed Results Reviewed: MR shoulder LT wo con IMPRESSION: 1. There is no definite rotator cuff tear. There is mild tendinopathy of the supraspinatus, infraspinatus, and subscapularis tendons. 2. 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 3. Moderate subacromial/subdeltoid bursitis. 4. The labrum appears grossly intact without definite tear. 5. The glenohumeral joint appears grossly normal. Assessment & Plan Assessment & Plan (1) Osteoarthritis of left acromioclavicular joint: Code(s): M19.012 - Primary osteoarthritis, left shoulder Category: Medical (2) Tendonitis of left rotator cuff: Code(s): M75.82 - Other shoulder lesions, left shoulder Category: Medical Plan I discussed options with the patient which includes a left AC joint injection under fluoroscopy which she is interested in. The order was placed today in the hospital contact her to make an appointment. I also placed an order for physical therapy and stressed the importance of working with them for over 6-8 weeks to help with strength and conditioning exercises and also postural training. If symptoms persist or worsen over the next 2-3 months she will contact our office otherwise follow up as needed. Orders: Orders FL Guided Asp or Inj Med Jt LT Today M19.012 - Primary osteoarthritis, left shoulder PT Evaluation and Treatment Today M19.012 - Primary osteoarthritis, left shoulder, M75.82 - Other shoulder lesions, left shoulder Medications: New celecoxib (Celebrex) 200 mg PO BID 60 caps 3RF 30 days Coding Level of Care Code Est Pt Level 3 (22361) Complex EM visit Add On G2211 Diagnoses Osteoarthritis of left acromioclavicular joint M19.012 Tendonitis of left rotator cuff M75.82
== END 2025-03-05 13:59 | disposition home or self-care (01) ==
LOC: HO.HOS 13:06
PROVIDERS: PCP Internal Medicine; Visit Provider Physician Assistant
DX: M19.012 Primary osteoarthritis, left shoulder (principal); M75.82 Other shoulder lesions, left shoulder
CPT/HCPCS: 99213

== ENCOUNTER → 2025-03-05 13:05 | Outpatient (BNVA) | payer MEDICAID, SELFPAY | PROVIDERS: PCP Internal Medicine; Visit Provider Physician Assistant | DX: M19.012 Primary osteoarthritis, left shoulder (principal); M75.82 Other shoulder lesions, left shoulder | CPT/HCPCS: 99212 ==

== ENCOUNTER 2025-06-04 09:34 | Outpatient (REF) | payer MEDICAID, SELFPAY ==
--- OUTSIDE RECORDS SUMMARY | 2025-06-02 14:45 | XMS_ITS | Encounter Summary ---
Author Organization [employer] Address [address] [facility] [address] [place] [address] Care Team Providers Care Clinical Research Manager Name Role Phone Vito Allen MD Primary Care Prov ider Reason for Referral * Consultation (Routine) - Authorized Specialty Diagnoses / Procedures Referred By Contac t Referred To Contact Optometry Diagnoses Type 2 diabetes mellitus without complication, without long-term current use of insulin (HCC) Vito Allen MD [address] [place] [address] Phone: tel: fax: [facility] [address] [place] [address] Phone: tel: fax: Referral ID Status Reason Start Date Expiration Date Visits Requested Visits Authorized [id number] Authorized Specialty Services Required 06/02/2026 1 1 Encounter Details Date Type Department Care Team (Latest Contact Info) Description 06/02/2025 2:45 PM EDT Telemedicine [facility] MED & PEDS [address] [place], [place] [phone] Vito Allen MD [address] [place], [place] [phone] Type 2 diabetes mellitus without complication, without long-term current use of insulin (HCC) (Primary Dx); Essential hypertension; Mixed hyperlipidemia Social History Tobacco Use Types Packs/Day Years [...] AM EDT documented as of this encounter Last Filed Vital Signs Vital Sign Reading Time Taken Comments Blood Pressure 130/72 06/02/2025 2:29 PM EDT Pulse - - Temperature - - Respiratory Rate - - Oxygen Saturation - - Inhaled Oxygen Concentration - - Weight - - Height - - Body Mass Index - - documented in this encounter Progress Notes * Vito De Leon MD - 06/02/2025 2:45 PM EDT Subjective Patient ID: Keyonna Lovell is a 55 y.o. female who presents for No chief complaint on file.. Hypertension This is a chronic problem. The problem is controlled. Pertinent negatives include no chest pain, headaches, palpitations, peripheral edema or shortness of breath. Diabetes She presents for her follow-up diabetic visit. She has type 2 diabetes mellitus. Her disease coursehas been stable. Pertinent negatives for hypoglycemia include no headaches. Pertinent negatives fordiabetes include no chest pain, no foot ulcerations, no polydipsia, no polyphagia and no polyuria. Review of Systems Respiratory: Negative for shortness of breath. Cardiovascular: Negative for chest pain and palpitations. Endocrine: Negative for polydipsia, polyphagia and polyuria. Neurological: Negative for headaches. Objective Physical Exam Neurological: General: No focal deficit present. Mental Status: She is oriented to person, place, and time. Psychiatric: Mood and Affect: Mood normal. Behavior: Behavior normal. Assessment/Plan Problem List Items Addressed This Visit Essential hypertension Controlled, keep low sodium diet and exercise as tolerated, keep blood pressure log, target <130/80 Relevant Medications losartan (Cozaar) 100 MG tablet Hyperlipidemia On statin therapy, new labs will be ordered for guidance, Type 2 diabetes mellitus (HCC) - Primary Will order new labs for guidance of therapy, will discontinue metformin, will refer for eye exam Relevant Medications losartan (Cozaar) 100 MG tablet Other Relevant Orders CBC auto differential Comprehensive Metabolic Panel Lipid Panel, Standard Hemoglobin A1c Albumin, Random Urine W/Creatinine TSH W/Reflex to FT4 Referral to Optometry documented in this encounter Miscellaneous Notes * Assessment & Plan Note - Vito De Leon MD - 06/02/2025 2:36 PM EDTAssociated Problem(s): Type 2 diabetes mellitus (HCC) Will order new labs for guidance of therapy, will discontinue metformin, will refer for eye exam * Assessment & Plan Note - Vito De Leon MD - 06/02/2025 2:36 PM EDTAssociated Problem(s): Hyperlipidemia On statin therapy, new labs will be ordered for guidance, * Assessment & Plan Note - Vito De Leon MD - 06/02/2025 2:36 PM EDTAssociated Problem(s): Essential hypertension Controlled, keep low sodium diet and exercise as tolerated, keep blood pressure log, target <130/80 documented in this encounter Plan of Treatment Scheduled Orders Name Type Priority Associated Diagnoses Orde r Schedule CBC auto differential Lab Routine Type 2 diabetes mellitus without complication, without long-term current use of insulin (HCC) Expected: 06/02/2025 (Approximate), Expires: 06/02/2026 Comprehensive Metabolic Panel Lab Routine Type 2 diabetes mellitus without complication, without long-term current use of insulin (HCC) Expected: 06/02/2025 (Approximate), Expires: 06/02/2026 Lipid Panel, Standard Lab Routine Type 2 diabetes mellitus without complication, without long-term current use of insulin (HCC) Expected: 06/02/2025 (Approximate), Expires: 06/02/2026 Hemoglobin A1c Lab Routine Type 2 diabetes mellitus without complication, without long-term current use of insulin (HCC) Expected: 06/02/2025 (Approximate), Expires: 06/02/2026 Albumin, Random Urine W/Creatinine Lab Routine Type 2 diabetes mellitus without complication, without long-term current use of insulin (HCC) Expected: 06/02/2025 (Approximate), Expires: 06/02/2026 TSH W/Reflex to FT4 Lab Routine Type 2 diabetes mellitus without complication, without long-term current use of insulin (HCC) Expected: 06/02/2025 (Approximate), Expires: 06/02/2026 Scheduled Referrals Name Type Priority Associated Diagnoses Orde r Schedule Referral to Optometry Outpatient Referral Routine Type 2 diabetes mellitus without complication, without long-term current use of insulin (HCC) Expected: 06/02/2025 (Approximate), Expires: 06/02/2026 documented as of this encounter Visit Diagnoses Diagnosis Type 2 diabetes mellitus without complication, without long-term current use of insulin (HCC)- Primary Essential hypertension Unspecified essential hypertension Mixed hyperlipidemia documented in this encounter Additional Health Concerns Assessment Noted Time PHQ-9 Depression Total Score: 0 05/17/20 23 10:11 AM EDT documented as of this encounter Care Teams Clinical Research Manager Relationship Specialty Start Date End Date Vito Allen MD [address] [place] [id number] PCP - General Internal Medicine 07/10/19 documented as of this encounter
--- OUTSIDE RECORDS SUMMARY | 2025-06-04 11:03 | XMS_ITS | Encounter Summary ---
Author Organization [employer] Address [address] [facility] [address] [place] [address] Care Team Providers Care Bankruptcy Legal Assistant Name Role Phone Vito Allen MD Primary Care Prov ider Reason for Visit * Reason Onset Date Comments Appointment 06/02/2025 Encounter Details Date Type Department Care Team ([facility] Contact Info) Description 06/02/2025 Telephone [facility] CHC MED & PEDS [address] [place], [place] [phone] Vito Allen MD [address] [place] [address] Appointment Social History Tobacco Use Types Packs/Day Years [...] t he electric, gas, oil or water [employer] threatened to shut off services in your home? No 05/21/2023 Depression Answer Date Recorded Patient Health Questionnaire-2 Score 0 05/17/2023 Comments Unknown Sex and Gender Information Value Date Recorded Sex Assigned at Female 06/05/2022 10:18 AM EDT Legal Sex Female 10:18 AM EDT Gender Identity Female 06/05/2022 10:18 AM EDT Sexual Orientation Straight 06/05/2022 10 :18 AM EDT documented as of this encounter Miscellaneous Notes * Telephone Encounter - Sulytray Latisha - 06/02/2025 3:50 PM EDT LVM telegraphic typewriter operator attempted to [facility] active request appointment. If pt returns call please akeni nh or [facility] appointment during time fram of [id number] with PCP. Follow up in about 3 months (around 08/17/2025) foroffice bp/dm. documented in this encounter Plan of Treatment Not on file documented as of this encounter Visit Diagnoses Not on filedocumented in this encounter Additional Health Concerns Assessment Noted Time PHQ-9 Depression Total Score: 0 05/17/20 23 10:11 AM EDT documented as of this encounter Care Teams Bankruptcy Legal Assistant Relationship Specialty Start Date End Date Vito Allen MD [address] [place] [phone] PCP - General Internal Medicine 07/10/19 documented as of this encounter
--- OUTSIDE RECORDS SUMMARY | 2025-06-04 11:03 | XMS_ITS | Encounter Summary ---
Author Organization [employer] Address [address] [facility] [address] [place] [address] Care Team Providers Care Attending Anesthesiologist Name Role Phone Vito Allen MD Primary Care Prov ider Reason for Visit * Reason Comments Med Refill Encounter Details Date Type Department Care Team ([facility] st Contact Info) Description 06/03/2025 Refill [facility] CHC MED & PEDS [address] [place], [place] [phone] Vito Allen MD [address] [place] [address] Type 2 diabetes mellitus with diabetic polyneuropathy, without long-term current use of insulin (HCC) Social History Tobacco Use Types Packs/Day Years [...] Visit Diagnoses Diagnosis Type 2 diabetes mellitus with diabetic polyneuropathy, without long-term current use of insulin (HCC) documented in this encounter Additional Health Concerns Assessment Noted Time PHQ-9 Depression Total Score: 0 05/17/20 23 10:11 AM EDT documented as of this encounter Care Teams Attending Anesthesiologist Relationship Specialty Start Date End Date Vito Allen MD [address] [place] [phone] PCP - General Internal Medicine 07/10/19 documented as of this encounter
--- OUTSIDE RECORDS SUMMARY | 2025-06-04 11:03 | XMS_ITS | Encounter Summary ---
Author Organization [employer] Address [address] [facility] [address] [address] [facility] [address] [place] [address] Care Team Providers Care Communications Agent Name Role Phone Vito Allen MD Primary Care Prov ider Encounter Details Date Type Department Care Team (Latest Contact Info) Description 06/02/2025 Travel Social History Tobacco Use Types Packs/Day Years [...] documented as of this encounter Care Teams Communications Agent Relationship Specialty Start Date End Date SánchezVito Us MD [address] [place] [phone] PCP - General Internal Medicine 07/10/19 documented as of this encounter
--- OUTSIDE RECORDS SUMMARY | 2025-06-04 11:03 | XMS_ITS | Encounter Summary ---
Author Organization [employer] Address [address] [facility] [address] [place] [address] Care Team Providers Care Assistant Branch Manager Name Role Phone Vito Allen MD Primary Care Prov ider Reason for Visit * Reason Onset Date Comments Chart Prep 06/01/2025 Encounter Details Date Type Department Care Team ([facility] Contact Info) Description 06/01/2025 Telephone [facility] CHC MED & PEDS [address] [place], [place] [phone] Vito Allen MD [address] [place] [address] Chart Prep Social History Tobacco Use Types Packs/Day Years Used Date Smoking Tobacco: Never Passive Smoke Exposure: Never Smokeless Tobacco: Never Depression Answer Date Recorded Patient Health Questionnaire-9 Score 0 05/17/2023 Housing Stability Answer Date Recorded What is your housing situation today? I have [employer] 05/21/[address] you [...] encounter Miscellaneous Notes * Telephone Encounter - Kaya Keenan MA - 06/01/2025 11:50 AM EDT Chart Prep Labs: not applicable Images: done Referrals: not applicable Vaccines due: Covid, Flu, and Hep B Screenings: colonoscopy, eye exam, and foot exam Overdue care gaps: A1c, Glucose, SBIRT, SDOH, PHQ-9, Oral health screening, Disability screen, and Tobacco documented in this encounter Plan of Treatment Not on file documented as of this encounter Visit Diagnoses Not on filedocumented in this encounter Additional Health Concerns Assessment Noted Time PHQ-9 Depression Total Score: 0 05/17/20 23 10:11 AM EDT documented as of this encounter Care Teams Assistant Branch Manager Relationship Specialty Start Date End Date Vito Allen MD [address] [place] [id number] PCP - General Internal Medicine 07/10/19 documented as of this encounter
--- OUTSIDE RECORDS SUMMARY | 2025-06-04 11:03 | XMS_ITS | Clinical Summary ---
Author Organization [email or web address] Address [address] [facility] 7t [place] [address] Care Team Providers Care Home Help Aide Name Role Phone Vito Allen MD Primary Care Prov ider Allergies Active Allergy Reactions Criticality Noted Date Comments Codeine 12/20/2017 Medications Blood Pressure Monitoring (Omron 3 Series BP Monitor) device Check blood pressure on arm as directed EVERY DAY 022 Active cholecalcifer ol (Vitamin D-3) 50 MCG (1999 UT) capsule Take 1 capsule by mouth once a day 019 Active Levonorgestre l (MIRENA, 52 MG, IU) 018 Active Misc Natural Products (Glucosamine Chond Cmp Advanced) tablet Take 1 capsule by mouth twice a day 020 Active melatonin 5 MG tablet Take 1-2 tablets by mouth at bedtime 018 Active TRUEplus Lancets 33G misc TEST BLOOD SUGAR ONCE DAILY OR DIRECTED 100 each 11 023 Active meloxicam (Mobic) 15 MG tabletIndicat ions:Arthriti s TAKE ONE TABLET DAILY NEEDED FOR PAIN 30 tablet 1 023 Active Trulicity 3 MG/0.5ML solution pen-injectorI ndications:Ty pe 2 diabetes mellitus with diabetic polyneuropath y, without long-term current use of insulin (HCC) INJECT ONE PEN (=3MG) SUBCUTANEOUSLY ONCE A WEEK 2 mL 1 023 Active Blood Glucose Monitoring Suppl (FreeStyle Lite) w/Device kit 1 kit Once per day. 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 90 tablet 3 025 Active Trulicity 3 MG/0.5ML solution auto-injector Indications:T ype 2 diabetes mellitus with diabetic polyneuropath y, without long-term current use of insulin ([facility]) INJECT ONE PEN (=3MG) SUBCUTANEOUSLY ONCE A WEEK 2 mL 3 025 Active losartan (Cozaar) 100 MG tablet TAKE ONE TABLET EVERY MORNING 90 tablet 3 024 2024 Discontinued(R eorder (will not trigger notification to Pharmacy)) Trulicity 3 MG/0.5ML solution auto-injector Indications:T ype 2 diabetes mellitus with diabetic polyneuropath y, without long-term current use of insulin ([facility]) INJECT ONE PEN (=3MG) SUBCUTANEOUSLY ONCE A WEEK 2 mL 3 025 2024 Discontinued metFORMIN XR (Glucophage-X R) 500 MG 24 hr tablet TAKE TWO TABLETS DAILY WITH SUPPER 180 tablet 025 2024 Discontinued([place] effects) Active Problems Problem Noted Date Diagnosed Date [...] 2 diabetes mellitus 01/10/2018 Assessment & Plan (06/02/2025 2:36 PM EDT): Will order new labs for guidance of therapy, will discontinue metformin, will refer for eye exam Assessment & Plan (03/17/2024 2:50 PM EDT): [...] 12/20/2017 Essential hypertension 12/20/2017 Assessment & Plan (06/02/2025 2:36 PM EDT): Controlled, keep low sodium diet and exercise as tolerated, keep blood pressure log, target <130/80 Assessment & Plan (03/17/2024 2:49 PM EDT): [...] as tolerated Hyperlipidemia 12/20/2017 Assessment & Plan (06/02/2025 2:36 PM EDT): On statin therapy, new labs will be ordered for guidance, Assessment & Plan (03/17/2024 2:50 PM EDT): [...] Encounters Date Type Department Care Team Description 06/03/2025 Refill [facility] [address] [place] [address] Vito Allen MD Type 2 diabetes mellitus with diabetic polyneuropathy, without long-term current use of insulin ([facility]) 06/02/2025 2:45 PM EDT Telemedicine [facility] [address] [place] [address] Vito Allen MD Type 2 diabetes mellitus without complication, without long-term current use of insulin (HCC) (Primary Dx); Essential hypertension; Mixed hyperlipidemia 06/02/2025 Telephone [facility] [address] [place] [address] Vito Allen MD Appointment 06/02/2025 Travel 06/01/2025 Telephone [facility] [address] [place] [address] Vito Allen MD Chart Prep 04/17/2025 Refill [facility] [address] [place] [address] Vito Allen MD 04/09/2025 Refill [facility] [address] [place] [address] Vito Allen MD 03/05/2025 Telephone [facility] [address] [place] [address] Vito Allen MD Referral from Last 3 Months Immunizations Immunization Administration [...] your housing situation today? I have alex ehnderson 05/21/[address] you li [...] Pressure 130/72 06/02/2025 2:29 PM EDT Pulse 88 05/17/2023 10:09 AM [...] of 3 - 19+ 3-dose series) 01/24/1987 Depression Screening 05/17/2024 05/17/2023, 05/17/20 Diabetes: Foot Exam 05/17/2024 05/17/2023, 05/17/2023, 05/17/2023, Additional history exists SDOH Screening 05/17/2024 05/17/2023 Diabetes: Hemoglobin A1C 10/06/2024 024, 05/17/2023, 04/20/2022 Tobacco Screening 11/07/2024 11/08/2023 COVID-19 Vaccine ( season) 2025 09/28/2021, 08/17/2021 Influenza Vaccine (#1) 2025 , 07/03/2020, 07/15/2019, Additional history exists Diabetes: Urine Protein Screening 04/08/2025 04/08/2024, 04/20/2022 Lipid Panel 04/08/2025 04/08/2024, 04/20/2022 Mammogram 01/15/2027 01/15/2025, 0401/2025, 01/24/2023, Additional history exists Cervical Cancer Screening [...] LIMITED RIGHT Routine 01/15/2025 11:05 AM EDT ALBUMIN, [...] Relevant to Health Maintenance Results * BI US Breast Limited Right (01/15/2025 11:05 AM EDT) Anatomical Region Laterality Modality Breast Right Ultrasound 01/15/2025 11:0 5 AM EDT Narrative 01/15/2025 11:39 AM EDT [facility] [address] [place] [address] Ultrasound Report Signed Patient: Keyonna Keller MR#: [id number] : 1970 Acct:[id number] Age/Sex: 54 / F ADM Date: 01/15/25 Loc: HO.MAMMO Attending Dr: Vito De Leon MD Ordering Physician: Vito Allen MD Date of Service: 01/15/25 Procedure(s): US breast RT limited mamm only Accession Number(s): [id number] cc: Vito Allen MD EXAMINATION: MM DIAGNOSTIC [...] 01/15/25 1136 DD/ 1105 TD/TT: 01/15/25 1130 Metal Riveter: Procedure Note Donotuseinterpreter, Image - 01/15/2025 [facility] [address] [place] [address] Ultrasound Report Signed Patient: Edwin Keller#: [id number] : 1970Acct:[id number] Age/Sex: 54 / FADM Date: 01/15/25 Loc: HO.MAMMO Attending Dr: Vito De Leon MD Ordering Physician: Vito Allen MD Date of Service: 01/15/25 Procedure(s): US breast RT limited mamm only Accession Number(s): [id number] cc: Vito Allen MD EXAMINATION: MM DIAGNOSTIC [...] 01/15/25 1136 DD/ 1105 TD/TT: 01/15/25 1130 Metal Riveter: Vito De Leon MD IMG US PROCEDURES Edited Result - Final * Albumin, Random Urine W/Creatinine (04/08/2024 9:30 AM EDT) Creatinine, Urine 120.32 mg/dL [facility] Microalbumin Urine 14.0 mg/L [facility] Microalbum Creatinine Ratio Ur 11.6 <30 ug/mg cr [facility] Comment:Albumin/Creatinine R atio Reference Ranges: Normal: < 30 ug/mg creatinine Microalbuminuria: 30 - 300 ug/mg creatinineClinical Albuminuria: > 300 ug/mg creatinine Urine (Urine, Random) 04/08/2024 9:30 AM EDT 04/08/2024 2:26 PM EDT Vito De Leon MD LAB URINE ORDERABL ES Final Result [facility] [address] [place] [phone] * Hemoglobin A1c (04/08/2024 9:23 AM EDT) Hemoglobin A1c 5.6 <6.0 % [facility] Comment:Hemoglobin A1C Refer ence Range Adults: 4.8 - 6.0 % Non diabetic: < 6.0 % Goal: < 7.0 %Additional Action Suggested: > 8.0 %Note: Hemoglobin A1c results are invalid for patients with abnormal amounts of HbF. Blood transfusions may impact the HbA1c concentration in the patient sample. Estimated Average Glucose 114 mg/dL [facility] Comment:eAG = Estimated ave rage glucose which is %A1C expressed asaverage glucose, using the formula of the [id number]-NvzltrsWkdotth Glucose study (ADAG), Diabetes Care, Vol.31,#8,Mar. 2007 Blood Venous blood specimen / Unknown 04/08/2024 9:23 AM EDT 04/08/2024 2:40 PM EDT Vito De Leon MD LAB BLOOD ORDERABL ES Final Result Performing Organization Address [facility]/ZIP Co de Phone Number [facility] [address] [place] [address] [phone] * (ABNORMAL) Lipid Panel, Standard (04/08/2024 9:23 AM EDT) Triglycerides 46 <150 mg/dL [facility] Comment:Desirable Triglyceri de: less than 150 mg/dLBorderline High Triglyceride 150-199 mg/dLHigh Triglyceride: 200-499 mg/dLVery High Triglyceride: greater than or equal to 5OO mg/dL Cholesterol 155 <200 mg/dL [facility] Comment:Desirable Cholestero l: less than 200 mg/dLBorderline High Cholesterol: 200-239 mg/dLHigh Cholesterol: greater than 239 mg/dL LDL Cholesterol Calculated 101(H) <100 mg/dL [facility] Comment:Desirable LDL: less than 100 mg/dLNear Optimal/Above Optimal LDL: 110- 129 mg/dLBorderline High LDL: 130-159 mg/dLHigh LDL: 160-189 mg/dLVery High LDL: greater than or equal to 190 mg/dL HDL Cholesterol 45 >40 mg/dL [facility] Comment:Desirable HDL: great er than 40 mg/dL Note: This HDL assay may give artificially low results in patients with liver disease. Blood Venous blood specimen / Unknown 04/08/2024 9:23 AM EDT 04/08/2024 2:40 PM EDT Vito De Leon MD LAB BLOOD ORDERABL ES Final Result Performing Organization Address City/[facility]/ZIP Co de Phone Number [facility] [address] [place] [address] [phone] * Image-Guided Pap with Age-Based Screening??with CT/NG,??Trichomonas (08/29/2022 2:14 PM EST) Comment [email or web address] [facility] Comment: This order for age-based cervical cancer and STI screening follows ACOG guidelines(PB 168, 140, TLA788). See individual assays for performing site location. Clinical Information: Abnormal bleeding Intrauterine contraceptive device [employer] Diagnost LMP: NONE GIVEN [facility] Prev. PAP: YES [facility] [employer] [facility] [employer] Prev. BX: NONE GIVEN C[employer]t SOURCE: None given [employer] Statement Of Adequacy: [employer] Comment: Satisfactory for evaluation. Endocervical/transformation zone component present. Interpretation/Re sult: Negative for intraepithelial lesion or malignancy. 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 [facility] [employer] [facility] [employer] COMMENT: [employer] [employer] Comment: This case could not be evaluated with computer assisted technology. The slide was manually screened according to routine procedures. Manager: [email or web address] [place] [employer] Comment: TEVIN, CT(ASCP) CT screening location: [place] [address] Review Manager: [facility] [place] [facility] [employer] Comment: ALS, CT(ASCP) CT screening location: [place] [address] (Always Message) Que [employer] Comment: EXPLANATORY NOTE: The Pap is a [...] HPV nRNA E6/E7 Not Detected Not Detected [employer] Comment: Methodology: U[employer]stery Covers Inspector-Mediated Amplification This assay detects E6/E7 viral messenger RNA (mRNA) from 14 high-risk HPV types (16,18,31,33,35,39,45,51,52,56,58,59,66,68). Cervical sources are required for HPV testing. If a vaginal source from a patient who has had a total hysterectomy with removal of cervix was submitted, please contact the testing laboratory for alternative testing options. For additional information, please refer to http://education.[employer]/faq/KQQ331z7 (This link if provided for information/ educational purposes only.) Chlamydia trachomatis RNA, TMA, Urogenital NOT DETECTED NOT DETECTED [facility] [employer] Neisseria gonorrhoeae RNA, TMA, Urogenital NOT DETECTED NOT DETECTED [facility] [employer] Comment [facility] [employer] Comment: The analytical performance characteristics of this assay, when used to test SurePath(TM) specimens have been determined by [employer]. The modifications have not been cleared or approved by the FDA. This assay has been validated pursuant to the CLIA regulations and is used for clinical purposes. For additional information, please refer to https://Slinky.[employer]/faq/YWF558 (This link is being provided for information/ educational purposes only.) Trichomonas vaginalis, QL, TMA, PAP Vial NOT DETECTED NOT DETECTED [facility] [employer] Comment: The analytical performance characteristics of this assay have been determined by [employer]. The modifications have not been cleared or approved by the FDA. This assay has been validated pursuant to the CLIA regulations and is used for clinical purposes. For additional information, please refer to http://Slinky.[employer]/ faq/Trichomonastma (This link is being provided for information/ educational purposes only.) 08/29/2022 2:14 PM EST 08/30/2022 11:00 AM EST Leandra Resendiz [facility] CYTOLOGY ORDERABLES F inal Result [facility] [address], [place] [address] [employer] [place] [employer] [address] [facility], ([address]) [place] [address] * HEPATITIS C AB W/REFL TO HCV RNA, QN, PCR (04/20/2022 8:33 AM EDT) HEPATITIS C ANTIBODY NON-REACT ALVIN NON-REACT ALVIN [facility] INDEX 0.14 <1.00 [facility] Comment: HCV antibody was non-reactive. There is no laboratory evidence of HCV infection. In most cases, no further action is required. However, if recent HCV exposure is suspected, a test for HCV RNA (test code 49130) is suggested. For additional information please refer to http://[email or web address]/faq/QKX37l3 (This link is being provided for informational/ educational purposes only.) 04/20/2022 8:33 AM EDT Vito De Leon MD HISTORICAL/NON ORD ERABLE LABS Final Result Performing Organization Address [facility] de Phone Number [facility] [address] * HIV 1/2 ANTIGEN/ANTIBODY,FOURTH GENERATION W/RFL (04/20/2022 8:33 AM EDT) [facility] HIV-1/2 ANTIGEN AND ANTIBODIES, 4TH GENERATION W/ REFLEX NON-REACT ALVIN NON-REACT ALVIN [facility] Comment: HIV-1 antigen and HIV-1/HIV-2 [...] purpose. For additional information please refer to [email or web address]/faq/JMR146 (This link is being provided for informational/ educational purposes only.) The performance of this assay has not been clinically validated in patients less than 2 years old. 04/20/2022 8:33 AM EDT Vito De Leon MD LAB BLOOD ORDERABL ES Final Result Performing Organization Address [facility] de Phone Number [facility] [address] from Last 3 Months or Most Recently Relevant to Health Maintenance Insurance [facility] C3 Care Teams Home Help Aide Relationship Specialty Start Date End Date Vito Allen MD [address] [place] [phone] PCP - General Internal Medicine 07/10/19
--- OUTSIDE RECORDS SUMMARY | 2025-06-04 11:03 | XMS_ITS | Encounter Summary ---
Author Organization [employer] Address [address] [facility] 7 [place] [address] Care Team Providers Care Genetic Supervisor Name Role Phone Vito Allen MD Primary Care Prov ider Encounter Details Date Type Department Care Team (Latest Contact Info) Description 06/04/2019 Abstract [facility] CONVERSIONS Dental, Provider, DDS Social History [...] on filedocumented in this encounter Care Teams Genetic Supervisor Relationship Specialty Start Date End Date Vito Allen MD [address] [place] [address] PCP - General Internal Medicine 07/10/19 documented as of this encounter
--- OUTSIDE RECORDS SUMMARY | 2025-06-04 11:04 | XMS_ITS | Clinical Summary ---
Author Organization [facility] Address [address] [place] [address] Care Team Providers Care Television Parts Tester Name Role Phone Unavailable Primary Care Provider [...] 01/24/2018 Zoster Vaccines (1 of 2) 01/24/2018 Depression Screening 08/06/2024 COVID-19 Vaccine ( - 2023-2 5 season) 2025 Influenza Vaccine (#1) 2025 RSV Immunization Adult Patie nts (1 - 1-dose 75+ series) 01/24/2043 HIB Vaccines Aged Out No longer eligi [...]
[2025-06-04 14:19] LABS: MANUAL DIFF FLAG NO
[2025-06-04 14:33] LABS: Hematocrit 34.9 % (37.0-47.0); Hemoglobin 11.5 g/dl (12.0-16.0); Imm Gran Abs Auto 0.01 X10*3/uL (0.00-0.03); Imm Gran Pct Auto 0.2 % (0.0-0.4); Lymphocytes Absolute Auto 1.4 X10*3/uL (1.2-4.9); Mean Corpuscular HGB Conc 33.0 g/dl (31.0-35.0); Mean Corpuscular Hemoglobin 29.0 pg (27.0-33.0); Mean Corpuscular Volume 87.9 fL (80.0-98.0); NRBC Abs Auto 0.000 X10*3/uL (0.0-0.012); NRBC Pct Auto 0.0 /100WBC (0.0-0.2); Platelet Count 205 X10*3/uL (160-400); Red Blood Count 3.97 X10*6/uL (4.20-5.50); White Blood Count 5.4 X10*3/uL (4.8-10.8)
[2025-06-04 14:53] LABS: Alanine Aminotransferase 18 U/L (0-31); Albumin Level 4.2 g/dL (3.5-5.0); Alkaline Phosphatase 132 U/L (39-117); Anion Gap 10 (12-20); Aspartate Amino Transferase 34 U/L (5-31); Blood Urea Nitrogen 17 mg/dL (9-16); Calcium 9.5 mg/dL (8.4-10.2); Carbon Dioxide 26 mmol/L (22-29); Chloride 108 mmol/L (96-108); Cholesterol 161 mg/dL (<200); Estimated Glomerular Filt Rate > 60; HDL Cholesterol 46 mg/dL (>40); Potassium 4.9 mmol/L (3.3-5.1); Sodium 139 mmol/L (135-145); Total Protein 8.4 g/dL (6.5-8.0); Triglycerides 75 mg/dL (<150)
[2025-06-04 15:08] LABS: Microalbum/Creatinine Ratio Ur 10.4 ug/mg cr (<30)
== END 2025-06-04 09:35 | disposition home or self-care (01) ==
LOC: HO.CHCLDS 09:34
PROVIDERS: Visit Provider Internal Medicine
DX: E11.9 Type 2 diabetes mellitus without complications (principal)
CPT/HCPCS: 36415; 80053; 80061; 82043; 82570; 83036; 84443; 85025